=== PATIENT | female | born 1975 | race Caucasian/White ===

== ENCOUNTER 2017-11-06 10:02 | Inpatient (IN) | payer BC ==
--- NOTE | 2017-11-06 10:33 | ED ---
Psych HPI - General Chief Complaint: Psychiatric Symptoms Stated Complaint: EPS eval Time Seen by Provider: 11/06/17 10:12 Source: patient Mode of arrival: ambulatory - History of Present Illness Initial Comments: 42 years old female just moved from [place] she has a history of bipolar disorder PTSD anxiety and depression she was seeing Dr. Roberts. She stating that she has been thinking about term harming herself she been thinking about term taking the overdose with her prescription pills she has done that in the past year ago she took her pills and attempted suicide he denies any alcohol or street drugs onboard she did smoke some marijuana yesterday. Denies any headaches no neck stiffness no chest pain or shortness of breath no abdominal pain. - Related Data Home Medications Medication Instructions Recorded Confirmed Albuterol Inhaler [Ventolin Hfa 1 - 2 puff INHALATION RT-Q6H PRN 11/06/17 Inhaler] Albuterol Nebulized [Ventolin 2.5 mg INHALATION RT-QID PRN 11/06/17 11/06/17 Nebulized] EPINEPHrine [Epipen 2-Macario] 0.3 mg IM ONCE PRN 11/06/17 11/06/17 Famotidine [Pepcid] 40 mg PO BID 11/06/17 11/06/17 Fluticasone/Salmeterol [Advair 1 puff INHALATION RT-BID 11/06/17 11/06/17 250-50 Diskus] Folic Acid 1 mg PO DAILY 11/06/17 11/06/17 Gabapentin 600 mg PO TID 11/06/17 11/06/17 LORazepam [Ativan] 1 mg PO BID 11/06/17 11/06/17 Methotrexate Sodium [Methotrexate] 20 mg PO DEVI 11/06/17 11/06/17 Metoprolol Succinate (ER) [Toprol 50 mg PO DAILY 11/06/17 11/06/17 Xl] Montelukast [Singulair] 10 mg PO HS 11/06/17 11/06/17 Omeprazole [PriLOSEC] 20 mg PO AC-BID 11/06/17 11/06/17 Prazosin [Minipress] 1 mg PO HS 11/06/17 11/06/17 QUEtiapine [SEROquel] 100 mg PO HS 11/06/17 11/06/17 busPIRone HCL 15 mg PO TID 11/06/17 11/06/17 Allergies Allergy/AdvReac Type Severity Reaction Status Date / Time cephalexin [From Keflex] Allergy Rash/Hives Verified 11/07/17 19:18 codeine Allergy Rash/Hives Verified 11/07/17 19:18 kiwi Allergy Dyspnea Verified 11/07/17 19:18 latex Allergy Rash/Hives Verified 11/07/17 19:18 vancomycin [From Vancocin] Allergy Rash/Hives Verified 11/07/17 19:18 morphine AdvReac BP Verified 11/07/17 19:18 DECREASES Review of Systems ROS Statement: Those systems with pertinent positive or pertinent negative responses have been documented in the HPI. ROS Other: All systems not noted in ROS Statement are negative. Past Medical History Past Medical History: Asthma Additional Past Medical History / Comment(s): psoriasis History of Any Multi-Drug Resistant Organisms: None Reported Past Surgical History: Cholecystectomy, Orthopedic Surgery, Tonsillectomy Additional Past Surgical History / Comment(s): lap band placement and removal Past Psychological History: Anxiety, Bipolar, Depression Smoking Status: Never smoker Past Alcohol Use History: None Reported Past Drug Use History: Marijuana General Exam - General Exam Comments Initial Comments: General: The patient is awake and alert, in no distress, and does not appear acutely ill. Skin: Skin is warm and dry and no rashes or lesions are noted. Eye: Pupils are equal, round and reactive to light, extra-ocular movements are intact; there is normal conjunctiva bilaterally. Ears, nose, mouth and throat: There are moist mucous membranes and no oral lesions. Neck: The neck is supple, there is no tenderness or JVD. Cardiovascular: There is a regular rate and rhythm. No murmur, rub or gallop is appreciated. Respiratory: To auscultation bilateral, no wheezing no rhonchi no distress respiratory skinner noticed Gastrointestinal: Soft, non-distended, non-tender abdomen without masses or organomegaly noted. There is no rebound or guarding present. Bowel sounds are unremarkable. Back: There is no tenderness to palpation in the midline. There is no obvious deformity. Musculoskeletal: Normal ROM, no tenderness, There is no pedal edema. There is no calf tenderness or swelling. No cords were appreciated. Neurological: CN II-XII intact, Cranial nerves III through XII are intact. There are no obvious motor or sensory deficits. Coordination appears grossly intact. Speech is normal. Psychiatric: Cooperative, appropriate mood him a no obvious depression noticed he has suicidal she said she wants to take her pills prescription pills to commit suicide she has a history of overdose she attempted that about a year ago Limitations: no limitations Course Vital Signs 11/06/17 11/06/17 11/06/17 10:05 15:37 19:11 Temperature 98.7 F Pulse Rate 63 64 60 Respiratory 16 18 18 Rate Blood Pressure 132/85 114/53 127/60 O2 Sat by Pulse 97 99 99 Oximetry 11/07/17 11/07/17 11/07/17 06:42 08:43 13:09 Temperature 97.4 F L Pulse Rate 70 61 60 Respiratory 18 16 18 Rate Blood Pressure 129/72 143/85 113/64 O2 Sat by Pulse 98 96 99 Oximetry Will proceed with consulting EPS for further evaluation at this point EPS requested me to do the Cert, EPS plan to transfer him to another psychiatric facility for inpatient treatment Medical Decision Making - Lab Data Result diagrams: 11/06/17 19:17 11/06/17 19:17 Lab Results 11/06/17 11/06/17 11/06/17 Range/Units 13:02 13:02 19:17 WBC 5.7 (3.8-10.6) k/uL RBC 4.33 (3.80-5.40) m/uL Hgb 12.9 (11.4-16.0) gm/dL Hct 38.4 (34.0-46.0) % MCV 88.7 (80.0-100.0) fL MCH 29.9 (25.0-35.0) pg MCHC 33.7 (31.0-37.0) g/dL RDW 13.4 (11.5-15.5) % Plt Count 165 (150-450) k/uL Neutrophils % 64 % Lymphocytes % 21 % Monocytes % 7 % Eosinophils % 4 % Basophils % 0 % Neutrophils # 3.7 (1.3-7.7) k/uL Lymphocytes # 1.2 (1.0-4.8) k/uL Monocytes # 0.4 (0-1.0) k/uL Eosinophils # 0.2 (0-0.7) k/uL Basophils # 0.0 (0-0.2) k/uL Sodium (137-145) mmol/L Potassium (3.5-5.1) mmol/L Chloride (98-107) mmol/L Carbon Dioxide (22-30) mmol/L Anion Gap mmol/L BUN (7-17) mg/dL Creatinine (0.52-1.04) mg/dL Est GFR (CKD-EPI)AfAm (>60 ml/min/1.73 sqM) Est GFR (CKD-EPI)NonAf (>60 ml/min/1.73 sqM) Glucose (74-99) mg/dL Estimated Ave Glu mg/dL Hemoglobin A1c (4.0-6.0) % Calcium (8.4-10.2) mg/dL Total Bilirubin (0.2-1.3) mg/dL AST (14-36) U/L ALT (9-52) U/L Alkaline Phosphatase (38-126) U/L Total Protein (6.3-8.2) g/dL Albumin (3.5-5.0) g/dL Triglycerides (<150) mg/dL Cholesterol (<200) mg/dL LDL Cholesterol, Calc (0-99) mg/dL HDL Cholesterol (40-60) mg/dL Urine Color Yellow Urine Appearance Cloudy H (Clear) Urine pH 6.0 (5.0-8.0) Ur Specific [place] 1.018 (1.001-1.035) Urine Protein Trace H (Negative) Urine Glucose (UA) Negative (Negative) Urine Ketones Negative (Negative) Urine Blood Negative (Negative) Urine Nitrite Negative (Negative) Urine Bilirubin Negative (Negative) Urine Urobilinogen <2.0 (<2.0) mg/dL Ur Leukocyte Esterase Large H (Negative) Urine RBC 1 (0-5) /hpf Urine WBC 3 (0-5) /hpf Ur Squamous Epith Cells 22 H (0-4) /hpf Urine Bacteria Rare H (None) /hpf Urine Mucus Occasional H (None) /hpf Urine Opiates Screen Not Detected (NotDetected) Ur Oxycodone Screen Not Detected (NotDetected) Urine Methadone Screen Not Detected (NotDetected) Ur Propoxyphene Screen Not Detected (NotDetected) Ur Barbiturates Screen Not Detected (NotDetected) U Tricyclic Antidepress Detected H (NotDetected) Ur Phencyclidine Scrn Not Detected (NotDetected) Ur Amphetamines Screen Not Detected (NotDetected) U Methamphetamines Scrn Not Detected (NotDetected) U Benzodiazepines Scrn Detected H (NotDetected) Urine Cocaine Screen Not Detected (NotDetected) U Marijuana (THC) Screen Detected H (NotDetected) 11/06/17 11/06/17 11/06/17 Range/Units 19:17 19:17 19:17 WBC (3.8-10.6) k/uL RBC (3.80-5.40) m/uL Hgb (11.4-16.0) gm/dL Hct (34.0-46.0) % MCV (80.0-100.0) fL MCH (25.0-35.0) pg MCHC (31.0-37.0) g/dL RDW (11.5-15.5) % Plt Count (150-450) k/uL Neutrophils % % Lymphocytes % % Monocytes % % Eosinophils % % Basophils % % Neutrophils # (1.3-7.7) k/uL Lymphocytes # (1.0-4.8) k/uL Monocytes # (0-1.0) k/uL Eosinophils # (0-0.7) k/uL Basophils # (0-0.2) k/uL Sodium 139 (137-145) mmol/L Potassium 4.4 (3.5-5.1) mmol/L Chloride 106 (98-107) mmol/L Carbon Dioxide 26 (22-30) mmol/L Anion Gap 7 mmol/L BUN 13 (7-17) mg/dL Creatinine 0.90 (0.52-1.04) mg/dL Est GFR (CKD-EPI)AfAm >90 (>60 ml/min/1.73 sqM) Est GFR (CKD-EPI)NonAf 79 (>60 ml/min/1.73 sqM) Glucose 100 H (74-99) mg/dL Estimated Ave Glu mg/dL 100 Hemoglobin A1c 5.1 (4.0-6.0) % Calcium 8.9 (8.4-10.2) mg/dL Total Bilirubin 0.4 (0.2-1.3) mg/dL AST 22 (14-36) U/L ALT 38 (9-52) U/L Alkaline Phosphatase 72 (38-126) U/L Total Protein 6.4 (6.3-8.2) g/dL Albumin 3.7 (3.5-5.0) g/dL Triglycerides 334 H (<150) mg/dL Cholesterol 187 (<200) mg/dL LDL Cholesterol, Calc 90 (0-99) mg/dL HDL Cholesterol 30 L (40-60) mg/dL Urine Color Urine Appearance (Clear) Urine pH (5.0-8.0) Ur Specific [place] (1.001-1.035) Urine Protein (Negative) Urine Glucose (UA) (Negative) Urine Ketones (Negative) Urine Blood (Negative) Urine Nitrite (Negative) Urine Bilirubin (Negative) Urine Urobilinogen (<2.0) mg/dL Ur Leukocyte Esterase (Negative) Urine RBC (0-5) /hpf Urine WBC (0-5) /hpf Ur Squamous Epith Cells (0-4) /hpf Urine Bacteria (None) /hpf Urine Mucus (None) /hpf Urine Opiates Screen (NotDetected) Ur Oxycodone Screen (NotDetected) Urine Methadone Screen (NotDetected) Ur Propoxyphene Screen (NotDetected) Ur Barbiturates Screen (NotDetected) U Tricyclic Antidepress (NotDetected) Ur Phencyclidine Scrn (NotDetected) Ur Amphetamines Screen (NotDetected) U Methamphetamines Scrn (NotDetected) U Benzodiazepines Scrn (NotDetected) Urine Cocaine Screen (NotDetected) U Marijuana (THC) Screen (NotDetected) Disposition Clinical Impression: Suicidal ideations, Planning to commit suicide Disposition: TRANSFER TO PSYCH HOSP/UNIT Condition: Good
[2017-11-06 13:34] LABS: Cocaine Screen,Urine Not Detected (NotDetected); Opiate Screen,Urine Not Detected (NotDetected); Phencyclidine Screen,Urine Not Detected (NotDetected); Urn Cannabinoid Scrn Detected (NotDetected)
[2017-11-06 13:35] LABS: Amphetamine Screen,Urine Not Detected (NotDetected); Barbiturate Screen,Urine Not Detected (NotDetected); Benzodiazepines Screen,Urine Detected (NotDetected); Methadone Screen, Urine Not Detected (NotDetected); Oxycodone Screen, Urine Not Detected (NotDetected); Tricyclic Antidepressant,Urine Detected (NotDetected)
[2017-11-06] MEDS ORDERED: LORazepam 1 MG TAB PO STA (14:52)
[2017-11-06 18:52] LABS: Appearance,Urine Cloudy (Clear); Bacteria,Urine Rare /hpf; Bilirubin,Urine Negative (Negative); Blood,Urine Negative (Negative); Color,Urine Yellow; Glucose,Urine (UA) Negative (Negative); Ketones,Urine Negative (Negative); Leukocyte Esterase,Urine Large (Negative); Mucus,Urine Occasional /hpf; Nitrite,Urine Negative (Negative); Protein,Urine Trace (Negative); RBC,Urine 1 /hpf (0-5); Specific Gravity,Urine 1.018 (1.001-1.035); Squamous Epithelial Cell,Urine 22 /hpf (0-4); Urobilinogen,Urine <2.0 mg/dL (<2.0); WBC,Urine 3 /hpf (0-5)
[2017-11-06 19:27] LABS: Basophils % (A) 0 %; Eosinophils # (A) 0.2 k/uL (0-0.7); Eosinophils % (A) 4 %; HCT 38.4 % (34.0-46.0); HGB 12.9 gm/dL (11.4-16.0); Lymphocytes # (A) 1.2 k/uL (1.0-4.8); Lymphocytes % (A) 21 %; MCH 29.9 pg (25.0-35.0); MCHC 33.7 g/dL (31.0-37.0); MCV 88.7 fL (80.0-100.0); Mean Platelet Volume 7.4; Monocytes # (A) 0.4 k/uL (0-1.0); Monocytes % (A) 7 %; Neutrophils # (A) 3.7 k/uL (1.3-7.7); Neutrophils % (A) 64 %; Platelet Count 165 k/uL (150-450); RBC 4.33 m/uL (3.80-5.40); RDW 13.4 % (11.5-15.5); WBC 5.7 k/uL (3.8-10.6)
[2017-11-06 19:36] LABS: ALT 38 U/L (9-52); AST 22 U/L (14-36); Albumin 3.7 g/dL (3.5-5.0); Alkaline Phosphatase 72 U/L (38-126); Anion Gap 7 mmol/L; Blood Urea Nitrogen 13 mg/dL (7-17); Calcium 8.9 mg/dL (8.4-10.2); Carbon Dioxide 26 mmol/L (22-30); Chloride 106 mmol/L (98-107); Glucose 100 mg/dL (74-99); Potassium 4.4 mmol/L (3.5-5.1); Sodium 139 mmol/L (137-145); Total Bilirubin 0.4 mg/dL (0.2-1.3); Total Protein 6.4 g/dL (6.3-8.2)
[2017-11-06] MEDS ORDERED: ALBUTEROL NEBULIZED 2.5 MG/3 ML INHALATION PRN ×2 (22:26)
[2017-11-07] MEDS ORDERED: ONDANSETRON ODT 4 MG TAB PO STA (05:49)
[2017-11-07] MEDS ORDERED: PANTOPRAZOLE 40 MG TABLET PO SCH (07:30)
[2017-11-07] MEDS ORDERED: NON-FORMULARY DRUG (Fluticasone/Salmeterol [Advair 250-50 Diskus] 1 PUFF) INHALATION SCH (08:00)
[2017-11-07] MEDS: busPIRone HCl 10 MG TAB PO SCH ×2 (08:41→16:26)
[2017-11-07] MEDS: GABAPENTIN 300 MG CAP PO SCH ×3 (08:42→21:41)
[2017-11-07] MEDS ORDERED: ONDANSETRON ODT 8 MG TAB.RAPDIS PO STA (08:46)
[2017-11-07] MEDS: LORazepam 1 MG TAB PO SCH ×2 (08:49→16:35)
[2017-11-07] MEDS ORDERED: METOPROLOL SUCCINATE (ER) 50 MG TAB.ER.24H PO SCH (09:00)
[2017-11-07] MEDS ORDERED: FAMOTIDINE 20 MG TAB PO SCH (09:00)
[2017-11-07] MEDS ORDERED: LORazepam 1 MG TAB PO STA (16:33)
[2017-11-07] MEDS ORDERED: LORazepam 1 MG TAB PO PRN (18:29)
[2017-11-07] MEDS ORDERED: ACETAMINOPHEN TAB 325 MG TAB PO PRN (18:29)
[2017-11-07] MEDS ORDERED: MAGNESIUM HYDROXIDE 2,400 MG/10 ML CUP PO PRN (18:29)
[2017-11-07] MEDS ORDERED: MAG HYDROX/AL HYDROX/SIMETH 30 ML CUP PO PRN (18:29)
[2017-11-07] MEDS ORDERED: ALBUTEROL INHALER 60 PUFF/8 GM INHALER INHALATION PRN (18:45)
[2017-11-07 18:54] VITALS: BMI 42.4
[2017-11-07] MEDS: SYMBICORT 80-4.5 MCG INHALER INHALATION SCH (20:35)
[2017-11-07] MEDS ORDERED: MONTELUKAST 10 MG TAB PO SCH (21:00)
[2017-11-07] MEDS ORDERED: PRAZOSIN 1 MG CAP PO SCH (21:00)
[2017-11-07] MEDS ORDERED: QUEtiapine 100 MG TAB PO SCH ×2 (21:00)
[2017-11-07] MEDS: PRAZOSIN 1 MG CAP PO SCH (21:40)
[2017-11-07] MEDS: MONTELUKAST 10 MG TAB PO SCH (21:40)
[2017-11-07] MEDS: busPIRone HCl 5 MG TAB PO SCH (21:40)
[2017-11-07] MEDS: FAMOTIDINE 20 MG TAB PO SCH (21:41)
[2017-11-08 01:52] LABS: Cholesterol 187 mg/dL (<200); HDL Cholesterol 30 mg/dL (40-60); LDL Cholesterol,Calculated 90 mg/dL (0-99); Triglycerides 334 mg/dL (<150)
[2017-11-08] MEDS: busPIRone HCl 5 MG TAB PO SCH ×3 (08:31→20:56)
[2017-11-08] MEDS: GABAPENTIN 300 MG CAP PO SCH ×3 (08:31→20:56)
[2017-11-08] MEDS: METOPROLOL SUCCINATE (ER) 50 MG TAB.ER.24H PO SCH (08:32)
[2017-11-08] MEDS: FAMOTIDINE 20 MG TAB PO SCH ×2 (08:32→20:56)
[2017-11-08] MEDS: PANTOPRAZOLE 40 MG TABLET PO SCH ×2 (08:32→17:29)
[2017-11-08] MEDS: SYMBICORT 80-4.5 MCG INHALER INHALATION SCH ×2 (08:35→20:43)
[2017-11-08] MEDS: FOLIC ACID 1 MG TAB PO SCH (11:09)
[2017-11-08] MEDS: lamoTRIgine 25 MG TAB PO SCH (11:09)
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
[2017-11-08 14:13] LABS: Hemoglobin A1C 5.1 % (4.0-6.0)
--- NOTE | 2017-11-08 15:12 | P.CONS ---
History of Present Illness - Reason for Consult Asthma, psoriasis, SVT - History of Present Illness 42-year-old female is be a admitted for breast severe depression. Patient denied any short of breath or fever chills chest pain nausea vomiting patient is requesting something for her restless leg syndrome she does take Requip but unsure of the dose and she says she probably takes about a 1 milligram of Requip I'm starting her on 0.5 mg daily increase the dose or if her symptoms are not controlled. Review of Systems REVIEW OF SYSTEMS: CONSTITUTIONAL: No fever, no malaise, no fatigue. HEENT: No recent visual problems or hearing problems. Denied any sore throat. CARDIOVASCULAR: No chest pain, orthopnea, PND, no palpitations, no syncope. PULMONARY: No shortness of breath, no cough, no hemoptysis. GASTROINTESTINAL: No diarrhea, no nausea, no vomiting, no abdominal pain. Normoactive bowel sounds. NEUROLOGICAL: No headaches, no weakness, no numbness. HEMATOLOGICAL: Denies any bleeding or petechiae. GENITOURINARY: Denies any burning micturition, frequency, or urgency. MUSCULOSKELETAL/RHEUMATOLOGICAL: Denies any joint pain, swelling, or any muscle pain. ENDOCRINE: Denies any polyuria or polydipsia. The rest of the 14-point review of systems is negative. Past Medical History Past Medical History: Asthma Additional Past Medical History / Comment(s): psoriasis History of Any Multi-Drug Resistant Organisms: None Reported Past Surgical History: Cholecystectomy, Orthopedic Surgery, Tonsillectomy Additional Past Surgical History / Comment(s): lap band placement and removal Past Anesthesia/Blood Transfusion Reactions: No Reported Reaction Past Psychological History: Anxiety, Bipolar, Depression Smoking Status: Never smoker Past Alcohol Use History: None Reported Past Drug Use History: Marijuana Medications and Allergies Home Medications Medication Instructions Recorded Confirmed Type Albuterol Inhaler [Ventolin Hfa 1 - 2 puff INHALATION RT-Q6H PRN 11/06/17 History Inhaler] Albuterol Nebulized [Ventolin 2.5 mg INHALATION RT-QID PRN 11/06/17 11/06/17 History Nebulized] EPINEPHrine [Epipen 2-Macario] 0.3 mg IM ONCE PRN 11/06/17 11/06/17 History Famotidine [Pepcid] 40 mg PO BID 11/06/17 11/06/17 History Fluticasone/Salmeterol [Advair 1 puff INHALATION RT-BID 11/06/17 11/06/17 History 250-50 Diskus] Folic Acid 1 mg PO DAILY 11/06/17 11/06/17 History Gabapentin 600 mg PO TID 11/06/17 11/06/17 History LORazepam [Ativan] 1 mg PO BID 11/06/17 11/06/17 History Methotrexate Sodium [Methotrexate] 20 mg PO DEVI 11/06/17 11/06/17 History Metoprolol Succinate (ER) [Toprol 50 mg PO DAILY 11/06/17 11/06/17 History Xl] Montelukast [Singulair] 10 mg PO HS 11/06/17 11/06/17 History Omeprazole [PriLOSEC] 20 mg PO AC-BID 11/06/17 11/06/17 History Prazosin [Minipress] 1 mg PO HS 11/06/17 11/06/17 History QUEtiapine [SEROquel] 100 mg PO HS 11/06/17 11/06/17 History busPIRone HCL 15 mg PO TID 11/06/17 11/06/17 History Allergies Allergy/AdvReac Type Severity Reaction Status Date / Time cephalexin [From Keflex] Allergy Rash/Hives Verified 11/07/17 19:18 codeine Allergy Rash/Hives Verified 11/07/17 19:18 kiwi Allergy Dyspnea Verified 11/07/17 19:18 latex Allergy Rash/Hives Verified 11/07/17 19:18 vancomycin [From Vancocin] Allergy Rash/Hives Verified 11/07/17 19:18 morphine AdvReac BP Verified 11/07/17 19:18 DECREASES Physical Exam Vitals: Vital Signs Temp Pulse Resp BP 11/08/17 08:35 70 18 128/79 11/07/17 21:56 71 136/93 11/07/17 18:38 97.3 F L 64 16 136/88 11/07/17 18:15 97.3 F L 64 16 136/88 PHYSICAL EXAMINATION: GENERAL: The patient is alert and oriented x3, not in any acute distress. Well developed, well nourished. HEENT: Pupils are round and equally reacting to light. EOMI. No scleral icterus. No conjunctival pallor. Normocephalic, atraumatic. No pharyngeal erythema. No thyromegaly. CARDIOVASCULAR: S1 and S2 present. No murmurs, rubs, or gallops. PULMONARY: Chest is clear to auscultation, no wheezing or crackles. ABDOMEN: Soft, nontender, nondistended, normoactive bowel sounds. No palpable organomegaly. MUSCULOSKELETAL: No joint swelling or deformity. EXTREMITIES: No cyanosis, clubbing, or pedal edema. NEUROLOGICAL: Gross neurological examination did not reveal any focal deficits. SKIN: No rashes. Results CBC & Chem 7: 11/06/17 19:17 11/06/17 19:17 Labs: Abnormal Lab Results - Last 24 Hours (Table) 11/06/17 Range/Units 19:17 Triglycerides 334 H (<150) mg/dL HDL Cholesterol 30 L (40-60) mg/dL Assessment and Plan Plan: -Asthma without any acute exacerbation no further intervention can continue albuterol and as-needed basis -Marijuana use: Counseling was provided -Psoriatic arthritis: Patient is on methotrexate which can be continued -Obesity: Counseling was provided -Asymptomatic bacteriuria will not require any antibiotics -History of SVT rate controlled on metoprolol which will be continued -Depression management as per primary service No further recommendations from medicine perspective thank you for letting me for respite in this patient's care will sign off at this point of time call us back if needed
[2017-11-08] MEDS: LORazepam 1 MG TAB PO PRN (15:25)
[2017-11-08] MEDS: MONTELUKAST 10 MG TAB PO SCH (20:56)
[2017-11-08] MEDS: PRAZOSIN 1 MG CAP PO SCH (21:20)
[2017-11-08] MEDS: traZODone HCL 50 MG TAB PO PRN (22:38)
[2017-11-09] MEDS: busPIRone HCl 5 MG TAB PO SCH ×3 (08:49→20:49)
[2017-11-09] MEDS: PANTOPRAZOLE 40 MG TABLET PO SCH ×2 (08:49→16:19)
[2017-11-09] MEDS: lamoTRIgine 25 MG TAB PO SCH (08:50)
[2017-11-09] MEDS: METOPROLOL SUCCINATE (ER) 50 MG TAB.ER.24H PO SCH (08:50)
[2017-11-09] MEDS: FAMOTIDINE 20 MG TAB PO SCH ×2 (08:50→20:48)
[2017-11-09] MEDS: GABAPENTIN 300 MG CAP PO SCH ×3 (08:50→20:49)
[2017-11-09] MEDS: LORazepam 1 MG TAB PO PRN ×2 (08:52→14:52)
[2017-11-09] MEDS: ONDANSETRON 4 MG TAB PO PRN (08:53)
--- NOTE | 2017-11-09 11:12 | P.PN ---
Progress Note - Text Interval history: The patient is found in group she follows me to an interview room. She reports her mood is okay she finds herself distressed by peers on the mental health unit. She states that she got some sleep last night appetite is poor. Energy is low. She continues to have some hopeless thoughts but feels safe in the hospital in terms of suicidal ideation. She describes having a difficult conversation with her yesterday and states "I got yelled at ". We reviewed her medications in detail. She is describing no skin rash from the Lamictal so far. We reviewed her vital signs there has been some fluctuation of her blood pressure. She is on metoprolol and Minipress and we discussed the impact of those 2 medications. Mental status exam: The patient is an overweight female she presents with adequate hygiene grooming. Eye contact is appropriate speech is fluent spontaneous nonpressured. She reports a depressed mood with anxiety. She is reporting no acute suicidal ideation intent or plan and she feels safe in the hospital. She is endorsing no auditory or visual hallucinations. She does not appear hypomanic or manic. She reports that she does struggle with relationships and is in need of coping skill development. She finds that she will quickly make assumptions about situations that are often pessimistic. Plan: The patient will be continued on her current medications. We will monitor her vitals. It appears she does have a significant contribution of personality disorder traits specifically borderline features. We discussed that as a possible diagnosis in detail. She seems to endorse several of those features. We discussed the importance of establishing a therapeutic alliance with her outpatient therapist and using DBT principles. We discussed titrating the Lamictal during the course of the week and she is agreeable. We will monitor her for safety.
[2017-11-09] MEDS: SYMBICORT 80-4.5 MCG INHALER INHALATION SCH ×2 (11:16→21:30)
[2017-11-09] MEDS: FOLIC ACID 1 MG TAB PO SCH (12:14)
[2017-11-09] MEDS: MONTELUKAST 10 MG TAB PO SCH (20:49)
[2017-11-09] MEDS: PRAZOSIN 1 MG CAP PO SCH (20:49)
[2017-11-09] MEDS: traZODone HCL 50 MG TAB PO PRN (22:22)
[2017-11-10] MEDS: SYMBICORT 80-4.5 MCG INHALER INHALATION SCH ×2 (09:15→21:20)
[2017-11-10] MEDS: METOPROLOL SUCCINATE (ER) 50 MG TAB.ER.24H PO SCH (09:16)
[2017-11-10] MEDS: FAMOTIDINE 20 MG TAB PO SCH ×2 (09:16→20:03)
[2017-11-10] MEDS: lamoTRIgine 25 MG TAB PO SCH ×2 (09:16→20:23)
[2017-11-10] MEDS: GABAPENTIN 300 MG CAP PO SCH ×3 (09:16→20:06)
[2017-11-10] MEDS: busPIRone HCl 5 MG TAB PO SCH ×3 (09:16→20:04)
[2017-11-10] MEDS: PANTOPRAZOLE 40 MG TABLET PO SCH ×2 (09:16→16:32)
[2017-11-10] MEDS: LORazepam 1 MG TAB PO PRN (09:18)
[2017-11-10] MEDS: FOLIC ACID 1 MG TAB PO SCH (12:33)
--- NOTE | 2017-11-10 13:27 | P.PN ---
Progress Note - Text Interval history: The patient is found in the dining room she follows me to an interview room. She states her anxiety has been heightened by exposure to an individual on the unit who is struggling with symptoms of ileana and psychosis. She states ordinarily she would do crafts and artwork to distract herself from anxiety but doesn't find those activities as available here. We discussed coping skills she can utilize while on the mental health unit. We reviewed her psychotropic medication her questions were answered. We plan to titrate the Lamictal further. Mental status exam: The patient is an obese female appearing her stated age. She has adequate hygiene grooming. Eye contact is appropriate. She endorses feelings of anxiety today. She feels suicidal thoughts are improving and she feels less hopeless. She is reporting no homicidal ideation. She endorses no auditory or visual hallucinations or any specific delusions. There is no observed evidence of psychosis she does not appear hypomanic or manic. Insight and judgment are slowly improving. Affect is more appropriately expressive. She demonstrates no abnormal involuntary movements she demonstrates no verbal or physical aggressiveness. Plan: The patient will continue on her current medications however I will titrate the Lamictal 25 mg twice daily. We will continue to monitor her for safety. She is encouraged to continue participating in groups. If she demonstrates sufficient clinical improvement/stability over the weekend we will consider a discharge Monday.
[2017-11-10] MEDS: PRAZOSIN 1 MG CAP PO SCH (20:05)
[2017-11-10] MEDS: MONTELUKAST 10 MG TAB PO SCH (20:05)
[2017-11-10] MEDS: traZODone HCL 50 MG TAB PO PRN (23:04)
[2017-11-11] MEDS: METOPROLOL SUCCINATE (ER) 50 MG TAB.ER.24H PO SCH (08:23)
[2017-11-11] MEDS: GABAPENTIN 300 MG CAP PO SCH ×3 (08:23→20:28)
[2017-11-11] MEDS: PANTOPRAZOLE 40 MG TABLET PO SCH ×2 (08:23→16:21)
[2017-11-11] MEDS: FAMOTIDINE 20 MG TAB PO SCH ×2 (08:23→20:27)
[2017-11-11] MEDS: lamoTRIgine 25 MG TAB PO SCH ×2 (08:24→20:27)
[2017-11-11] MEDS: busPIRone HCl 5 MG TAB PO SCH ×3 (08:24→20:28)
[2017-11-11] MEDS: FOLIC ACID 1 MG TAB PO SCH (08:24)
[2017-11-11] MEDS: ONDANSETRON 4 MG TAB PO PRN (08:26)
[2017-11-11] MEDS: SYMBICORT 80-4.5 MCG INHALER INHALATION SCH ×2 (09:01→21:34)
--- NOTE | 2017-11-11 12:33 | PN ---
PROGRESS NOTE SUBJECTIVE: Patient seen, interviewed, found in somewhat better mood. The patient reports that she has started feeling better. She stated her anxiety is still there. She is still a little hyper impulsive. She stated she is worried about everything. She stated she is started on Lamictal and she took it and tolerated it well. She is somewhat hyperverbal, having flight of ideas, but at the same time redirectable. MENTAL STATUS EXAMINATION: Patient is alert and orient x4. Has fair eye contact. Speech is hyperverbal, somewhat pressured. Mood is anxious with congruent affect. Denies any suicidal ideation. I do not see her responding to internal flap. Intellect is average. Insight, judgment, improving slowing individually. PLAN OF TREATMENT: We will continue to adjust medications accordingly. We will continue to titrate the Lamictal up accordingly. So far she has been tolerating well, reporting no side effects. She has some trouble with sleep. We will give her trazodone to help her sleep and encourage her to attend groups and meetings. Support therapy provided. ABIGAIL / SONNY: [id number] /
[2017-11-11] MEDS: LORazepam 1 MG TAB PO PRN (15:09)
[2017-11-11] MEDS: MONTELUKAST 10 MG TAB PO SCH (20:27)
[2017-11-11] MEDS: PRAZOSIN 1 MG CAP PO SCH (20:28)
[2017-11-11] MEDS: traZODone HCL 50 MG TAB PO PRN (22:39)
[2017-11-12 07:05] VITALS: RESP 16
[2017-11-12] MEDS: GABAPENTIN 300 MG CAP PO SCH ×3 (08:18→20:50)
[2017-11-12] MEDS: PANTOPRAZOLE 40 MG TABLET PO SCH ×2 (08:18→17:06)
[2017-11-12] MEDS: FAMOTIDINE 20 MG TAB PO SCH ×2 (08:18→20:49)
[2017-11-12] MEDS: METOPROLOL SUCCINATE (ER) 50 MG TAB.ER.24H PO SCH (08:18)
[2017-11-12] MEDS: lamoTRIgine 25 MG TAB PO SCH ×2 (08:19→20:51)
[2017-11-12] MEDS: busPIRone HCl 5 MG TAB PO SCH ×3 (08:19→20:50)
[2017-11-12] MEDS: ONDANSETRON 4 MG TAB PO PRN (08:20)
[2017-11-12] MEDS: SYMBICORT 80-4.5 MCG INHALER INHALATION SCH ×2 (09:00→21:05)
[2017-11-12] MEDS: FOLIC ACID 1 MG TAB PO SCH (12:14)
--- NOTE | 2017-11-12 14:07 | PN ---
PROGRESS NOTE DATE OF SERVICE: Today is November 12, 2017. The patient is seen and interviewed. Found watching TV. She reports she is doing better. She reports that with the medication she was having some headache and she would like to get some Tylenol. Her mood has started improving. She still reports some anxiety and some impulsive behavior. She has no issues with the Lamictal so far. She is still somewhat hyperverbal but has no pressured speech. She did sleep better last night. MENTAL STATUS EXAMINATION: Patient is alert and oriented x4. Has fair eye contact. Speech is hyperverbal, but no pressure. Mood is still anxious, dysphoric, affect from admission. I did not see her responding to internal stimuli. Insight, judgment, improving gradually. PLAN: Will continue to adjust medications accordingly. We will give her some Tylenol to help with the headache. Encouraged to attend groups and meetings. Supportive therapy provided. MMODL / IJN: [id number] /
[2017-11-12] MEDS: PRAZOSIN 1 MG CAP PO SCH (20:51)
[2017-11-12] MEDS: MONTELUKAST 10 MG TAB PO SCH (20:56)
[2017-11-12] MEDS: traZODone HCL 50 MG TAB PO PRN (21:59)
[2017-11-13 06:36] VITALS: BP 112/64; PULSE 61; TEMP 97.7
[2017-11-13] MEDS: PANTOPRAZOLE 40 MG TABLET PO SCH (08:15)
[2017-11-13] MEDS: FAMOTIDINE 20 MG TAB PO SCH (08:15)
[2017-11-13] MEDS: GABAPENTIN 300 MG CAP PO SCH ×2 (08:15→15:43)
[2017-11-13] MEDS: lamoTRIgine 25 MG TAB PO SCH (08:15)
[2017-11-13] MEDS: METOPROLOL SUCCINATE (ER) 50 MG TAB.ER.24H PO SCH (08:15)
[2017-11-13] MEDS: busPIRone HCl 5 MG TAB PO SCH ×3 (08:16→15:43)
[2017-11-13] MEDS: SYMBICORT 80-4.5 MCG INHALER INHALATION SCH (09:24)
--- NOTE | 2017-11-13 09:36 | P.DS ---
Providers Date of admission: 11/07/17 17:48 Expected date of discharge: 11/13/17 Attending physician: Josesito Dubon Consults: 11/07/17 18:29 Consult Physician Routine Consulting Provider: Leni Cadet Consult Reason/Comments: H&P for mental health admission Do you want consulting provider notified?: Yes Primary care physician: Zari Mayorga - Discharge Diagnosis(es) (1) Depression Current Visit: Yes Status: Acute Priority: High (2) Chronic post-traumatic stress disorder (PTSD) Current Visit: Yes Status: Acute Priority: Medium (3) Anxiety disorder, unspecified Current Visit: Yes Status: Acute Priority: Medium Hospital Course: Brief summary of admission note: This patient is a 42-year-old female who was admitted to the mental health unit with acute suicidal ideation. She presented reporting sadness poor sleep and decreased appetite. She described having low interest and less energy. She was frequently tearful and had hopeless thinking. She described having frequent symptoms of anxiety. During the course of the evaluation she endorsed episodes where she will go 4-5 days with less sleep and increased energy and racing thoughts. As the hospitalization progressed however she described these differently as changing from minute to minute or hour to hour. She described a long history of impaired self-esteem relationship instability and all or none thinking. For full details please refer to my psychiatric evaluation dated 11/08/2017. Summary of hospital course: The patient's was admitted to the mental health unit voluntarily. We reviewed her presenting symptoms and treatment options. We decided to continue her BuSpar, discontinue Seroquel, initiate trazodone for sleep, and initiate Lamictal as a mood stabilizer. We were able to titrate the Lamictal and she has been able to tolerate the medication. She was seen by internal medicine for routine history and physical exam. Requip was added for restless leg symptoms. She did have visitation with her over the weekend and she felt that went well. She is willing to continue working with her outpatient therapist. We discussed the importance of abstaining from any use of alcohol or marijuana. She does not feel that she has an issue with marijuana use and does not need inpatient chemical dependency treatment. Mental status exam: The patient is alert she is dressed in her own clothing. Hygiene and grooming are adequate. She reports her mood is much improved. She does not feel hopeless she endorses no suicidal or homicidal ideation intent or plan. She reports no auditory or visual hallucinations or any specific delusions. She demonstrates no evidence of psychosis. She demonstrates no tangential thinking loose associations or flight of ideas. She does not appear hypomanic or manic. Insight and judgment improved. Affect is appropriately expressive and appeared euthymic. She is oriented to person place and date. She demonstrates no verbal or physical aggressiveness and there is no evidence of abnormal involuntary movements. Impressions 1. Depression unspecified, rule out major depressive disorder, rule out bipolar 2 depression, anxiety unspecified, PTSD chronic, rule out cannabis use disorder 2. Borderline personality disorder traits 3. Psoriasis, controlled asthma, history of ankle injury with subsequent surgeries 4. Marital strain, financial strain Plan: The patient will be discharged from mental health unit today to return home. She will continue following up with outpatient mental health services and social work will confirm those appointments. She will continue on BuSpar 15 mg 3 times daily, Lamictal 25 mg twice daily. The Lamictal will require further titration. She will continue on Requip 0.5 mg at bedtime, trazodone 50 mg at bedtime as needed. She continues to find Minipress 1 mg at bedtime helpful and will continue on that as well. At this time is no imminent safety risk she is appropriate for transition to outpatient care. She is instructed to return to the hospital with any acute safety concerns. Patient Condition at Discharge: Stable Plan - Discharge Summary Discharge Rx Participant: No New Discharge Prescriptions: New lamoTRIgine [LaMICtal] 25 mg PO BID #60 tab rOPINIRole HCL [Requip] 0.5 mg PO HS #30 tablet traZODone HCL [Desyrel] 50 mg PO HS PRN #30 tab PRN Reason: Insomnia Continue Methotrexate Sodium [Methotrexate] 20 mg PO DEVI Gabapentin 600 mg PO TID Omeprazole [PriLOSEC] 20 mg PO AC-BID Metoprolol Succinate (ER) [Toprol XL] 50 mg PO DAILY Folic Acid 1 mg PO DAILY Fluticasone/Salmeterol [Advair 250-50 Diskus] 1 puff INHALATION RT-BID Famotidine [Pepcid] 40 mg PO BID EPINEPHrine [Epipen 2-Macario] 0.3 mg IM ONCE PRN PRN Reason: Anaphylaxis Montelukast [Singulair] 10 mg PO HS Albuterol Nebulized [Ventolin Nebulized] 2.5 mg INHALATION RT-QID PRN PRN Reason: Shortness Of Breath Albuterol Inhaler [Ventolin Hfa Inhaler] 1 - 2 puff INHALATION RT-Q6H PRN PRN Reason: Shortness Of Breath busPIRone HCL 15 mg PO TID #45 tablet Prazosin [Minipress] 1 mg PO HS #30 cap Discontinued LORazepam [Ativan] 1 mg PO BID QUEtiapine [SEROquel] 100 mg PO HS Discharge Medication List Albuterol Inhaler [Ventolin Hfa Inhaler] 1 - 2 puff INHALATION RT-Q6H PRN [History] Albuterol Nebulized [Ventolin Nebulized] 2.5 mg INHALATION RT-QID PRN 11/06/17 [ History] EPINEPHrine [Epipen 2-Macario] 0.3 mg IM ONCE PRN 11/06/17 [History] Famotidine [Pepcid] 40 mg PO BID 11/06/17 [History] Fluticasone/Salmeterol [Advair 250-50 Diskus] 1 puff INHALATION RT-BID 11/06/17 [History] Folic Acid 1 mg PO DAILY 11/06/17 [History] Gabapentin 600 mg PO TID 11/06/17 [History] Methotrexate Sodium [Methotrexate] 20 mg PO DEVI 11/06/17 [History] Metoprolol Succinate (ER) [Toprol XL] 50 mg PO DAILY 11/06/17 [History] Montelukast [Singulair] 10 mg PO HS 11/06/17 [History] Omeprazole [PriLOSEC] 20 mg PO AC-BID 11/06/17 [History] Prazosin [Minipress] 1 mg PO HS #30 cap 11/13/17 [Rx] busPIRone HCL 15 mg PO TID #45 tablet 11/13/17 [Rx] lamoTRIgine [LaMICtal] 25 mg PO BID #60 tab 11/13/17 [Rx] rOPINIRole HCL [Requip] 0.5 mg PO HS #30 tablet 11/13/17 [Rx] traZODone HCL [Desyrel] 50 mg PO HS PRN #30 tab 11/13/17 [Rx] Follow up Appointment(s)/Referral(s): Zari Mayorga MD [Primary Care Provider] - 1-2 days
[2017-11-13] MEDS: FOLIC ACID 1 MG TAB PO SCH (12:54)
== END 2017-11-13 16:43 | disposition home or self-care (01) | DRG 881 ==
LOC: EC 10:02 → 3MHU 11-07 17:48
PROVIDERS: ADMIT Psychiatry & Neurology Psychiatry; ATTEND Psychiatry & Neurology Psychiatry
DX: F32.9 Major depressive disorder, single episode, unspecified (principal); I47.1 Supraventricular tachycardia; R45.851 Suicidal ideations; Z68.41 Body mass index [BMI] 40.0-44.9, adult; F41.0 Panic disorder [episodic paroxysmal anxiety]; F43.12 Post-traumatic stress disorder, chronic; F60.3 Borderline personality disorder; G25.81 Restless legs syndrome; J45.909 Unspecified asthma, uncomplicated; L40.9 Psoriasis, unspecified; Z79.899 Other long term (current) drug therapy; Z91.5 Personal history of self-harm; F12.10 Cannabis abuse, uncomplicated; E66.9 Obesity, unspecified; Z71.3 Dietary counseling and surveillance; Z71.51 Drug abuse counseling and surveillance of drug abuser; M25.579 Pain in unspecified ankle and joints of unspecified foot; Z59.9 Problem related to housing and economic circumstances, unspecified; Z63.0 Problems in relationship with spouse or partner; Z81.1 Family history of alcohol abuse and dependence; Z81.8 Family history of other mental and behavioral disorders; Z88.1 Allergy status to other antibiotic agents; Z88.5 Allergy status to narcotic agent
CPT/HCPCS: 36415; 80053; 80061; 80306; 81001; 82075; 83036; 85025; 94640; 99285

== ENCOUNTER → 2017-11-24 | Outpatient (CLI) | payer BC ==
--- NOTE | 2017-11-24 14:06 | CT ---
EXAMINATION TYPE: CT ankle LT wo con DATE OF EXAM: 11/24/2017 COMPARISON: None HISTORY: Pain CT DLP: 203 mGycm Automated exposure control for dose reduction was used. CONTRAST: CT left ankle is performed without contrast. FINDINGS: Lateral malleolus is intact. Well-corticated lucency from two old fixating screws are seen anteriorly . There are 2 fixating screws through medial malleolus through healed fracture. There is large anterior fusion plate with multiple fixating screws through the anterior distal tibia with extension into the superior and anterior talus. There is arthrodesis or ossific fusion of the an terior to middle two thirds of the tibial talar joint seen best on sagittal images. Some mild posteri or spurring is present sagittal image 19. There is tiny superior and moderate size inferior calcaneal spur. Remainder of the hindfoot and midfo ot articulations are maintained. Normal sinus tarsi fat is present. Visualized Achilles tendon is sli ghtly thickened roughly 5 to 6 cm from insertion. Visualized plantar fascia is intact. Accessory ossi aan laura near cuboid bone sagittal image 14 is noted. Mild diffuse subcutaneous edema laterally is present . IMPRESSION: SURGICAL CHANGE THROUGH HEALED FRACTURES WITH DEVELOPING ARTHRODESIS TIBIOTALAR JOINT NOTED.
== END | disposition home or self-care (01) ==
LOC: EDUNIT# 11-09 07:20 → RADCTMAIN 12:51
PROVIDERS: ATTEND Orthopaedic Surgery
DX: M25.572 Pain in left ankle and joints of left foot (principal); Z98.1 Arthrodesis status

== ENCOUNTER → 2018-05-11 | Outpatient (CLI) | payer OTHER ==
[2018-05-14 12:11] LABS: Avocado Class CLASS 0; Banana IgE Class CLASS 0; Beef IgE <0.35 kU/L (<0.35); Beef IgE Class CLASS 0; Chicken IgE Class CLASS 0; Cow's Milk IgE Class CLASS 0; Egg White IgE <0.35 kU/L (<0.35); Egg Yolk IgE Class CLASS 0; Gluten IgE Class CLASS 0; Hazelnut IgE <0.35 kU/L (<0.35); Hazelnut IgE Class CLASS 0; Kiwi IgE <0.35 kU/L (<0.35); Latex IgE Class CLASS 0; Peanut IgE <0.35 kU/L (<0.35); Pork IgE Class CLASS 0; Potato IgE <0.35 kU/L (<0.35); Potato IgE Class CLASS 0; Soybean IgE <0.35 kU/L (<0.35); Yeast Bakers/Brew IgE <0.35 kU/L (<0.35)
== END | disposition home or self-care (01) ==
LOC: LABWHC1 16:56
PROVIDERS: ATTEND Otolaryngology
DX: L50.0 Allergic urticaria (principal)
CPT/HCPCS: 36415; 86003

== ENCOUNTER → 2018-10-02 | Outpatient (CLI) | payer OTHER ==
--- NOTE | 2018-10-02 21:02 | CONS ---
CONSULTATION REASON FOR CONSULTATION: This is a consultation note for sleep apnea. 42-year-old, obese female patient coming in for sleep apnea evaluation. The patient is obese and she has loud snoring and witnessed apneas, waking up choking and gasping for air in addition to excessive daytime sleepiness and fatigue. She wakes up tired and sleepy during the day. She goes to bed around 1:00 am, gets up at 8 a.m. in the morning. She is very much worried about her sleep quality. She is having no problems with memory and concentration. She is also irritable and she has history of depression. In addition, she reports dry mouth when she wakes up in the morning and she has ongoing restlessness in lower extremities. She has episodic heartburn, none at night time. She prefers to sleep on her side. She does not fall asleep while driving her car. No sleep paralysis, hallucinations, cataplexy. [place] score is at 15. She is obese and she has probably gained around 10 pounds over the past 1 year. She has various other comorbidities for now. PAST MEDICAL HISTORY: 1. Obesity. 2. Chronic anxiety. 3. Hypertension. 4. Bipolar disorder. 5. RLS. 6. Migraines. 7. Acid reflux. 8. Diabetes mellitus. 9. Bronchial asthma. 10.History of psoriasis with psoriatic arthritis. PAST SURGICAL HISTORY: Includes ten ankle surgeries and currently ankle is fused; cholecystectomy, tonsillectomy, and lap band insertion and removal. DRUG ALLERGIES: MULTIPLE INCLUDING KEFLEX, VANCOMYCIN, LATEX, CODEINE, MORPHINE AND SHE IS ALSO ALLERGIC TO KIWI. SHE IS ALSO ALLERGIC TO ROXICET. FAMILY HISTORY: Positive for obstructive sleep apnea. Family situation: The patient is currently disabled. She is living with her . She has raised 3 adopted kids and four of her biologic kids. No history of excessive cough caffeine consumption. No alcoholism. No substance abuse. No smoking. REVIEW OF SYSTEMS: Fourteen-point review of system was done. Positive findings are mentioned above in the history of present illness. She has issues with chronic pain. Chronic migraine. She has issues with bipolar disorder. No nighttime heartburn. Rest of the positive findings are mentioned above in history of present illness. No grinding of the teeth. No sleepwalking. No claustrophobia. She has chronic problems with anxiety and depression. Yet, no panic attacks. No sleep paralysis. No hallucinations. No cataplexy. PHYSICAL EXAMINATION: BP is 122/55, pulse 63, respirations 16, temp 98.3. Saturation 98% on room air. Height is 5 feet 7 inches, weight is 78 and neck size 16 inches. [place] score of 15. BMI is 43.5, temperature 98.3. GENERAL APPEARANCE: Calm, comfortable in no acute distress. HEAD is atraumatic, normocephalic. NECK: Supple. No JVD. No goiter or neck masses. Mallampati class IV. LUNGS: Diminished breath sounds. Otherwise clear. HEART: Sounds regular rate and rhythm. Normal S1, S2. No S3. No murmurs. ABDOMEN: Soft, nontender. No organomegaly. EXTREMITIES: No edema. No cyanosis or clubbing. NEUROLOGIC: She is alert and oriented x3. No focal neurological deficits. SKIN: Negative for any wounds or ulceration. IMPRESSION: 1. Chronic hypersomnia, [place] score of 15. Currently under investigation. Rule out obstructive sleep apnea. Rule out other cause of sleep fragmentation including her chronic psychiatric disorder which includes a combination of anxiety and bipolar disorder. 2. Chronic pain and neuropathy and restless legs, need to be also considered as comorbid conditions affecting her sleep quality. 3. Psoriasis along with cirrhotic arthritis. 4. Obesity with a BMI of 43. 5. Chronic anxiety. 6. Bipolar disorder. 7. Hypertension. 8. Migraine. 9. Acid reflux. 10.Diabetes mellitus. 11.Bronchial asthma. PLAN: 1. Encourage weight loss. 2. Implement good sleep hygiene measures. 3. Proceed with a screening polysomnogram to investigate the patient for obstructive sleep apnea and treat accordingly. 4. As mentioned the patient has various multiple medical problems and comorbidities that can also affect her sleep quality in general. MMODL / IJN: [id number] /
== END ==
LOC: SLEEP 13:38
PROVIDERS: ATTEND Internal Medicine Critical Care Medicine
DX: G47.10 Hypersomnia, unspecified (principal); G89.29 Other chronic pain; G62.9 Polyneuropathy, unspecified; G25.81 Restless legs syndrome; L40.9 Psoriasis, unspecified; M13.80 Other specified arthritis, unspecified site; E66.9 Obesity, unspecified; F41.9 Anxiety disorder, unspecified; I10 Essential (primary) hypertension; G43.909 Migraine, unspecified, not intractable, without status migrainosus; K21.9 Gastro-esophageal reflux disease without esophagitis; E11.9 Type 2 diabetes mellitus without complications; J45.909 Unspecified asthma, uncomplicated; Z88.1 Allergy status to other antibiotic agents; Z91.040 Latex allergy status; Z88.5 Allergy status to narcotic agent; Z91.018 Allergy to other foods; Z68.41 Body mass index [BMI] 40.0-44.9, adult; Z88.8 Allergy status to other drugs, medicaments and biological substances
CPT/HCPCS: 99211

== ENCOUNTER 2018-11-18 13:26 | Inpatient (IN) | payer OTHER, MEDICARE ==
[2018-11-18] MEDS ORDERED: SODIUM CHLORIDE 0.9% 1,000 ML IV STA (14:09)
[2018-11-18] MEDS ORDERED: HYDROmorphone 0.5 MG/0.5 ML SYRINGE IVP STA (14:10)
[2018-11-18] MEDS ORDERED: DEXAMETHASONE SOD PHOSPHATE 10 MG/ML 1 ML VIAL IV STA (14:11)
[2018-11-18] MEDS ORDERED: VANCOMYCIN IV PER PHARMACY 1 EACH MISC MISCELLANE PRN (14:11)
--- NOTE | 2018-11-18 14:14 | ED ---
Skin/Abscess/FB HPI - General Chief complaint: Skin/Abscess/Foreign Body Stated complaint: Rash Time Seen by Provider: 11/18/18 13:36 Source: patient, RN notes reviewed, old records reviewed Mode of arrival: ambulatory Limitations: no limitations - History of Present Illness Initial comments: This is a 43-year-old female the ER for evaluation. Patient's complicated skin soft tissue infection. Significant erythema of abdomen for significant psoriasis throughout body. Patient is not currently on treatment for rheumatology. She admits to no fevers but just feels weak feels like she has significant hotnessto anterior abdomen. Patient has significant history of psoriasis, recent diagnosis of C. diff on oral vancomycin currently. She is also on significant topical steroids as well as again vancomycin with worsening of all symptoms MD complaint: rash (Anterior abdomen arms diffuse body), other (Significant pustular psoriasis) -: week(s) Location: generalized Severity: severe Severity scale (1-10): 8 Quality: burning, stabbing, aching Consistency: constant, intermittent Worsens with: none Context: new medication, recent antibiotic Associated symptoms: fever, chills, itching Treatments Prior to Arrival: corticosteroid, antibiotic - Related Data Home Medications Medication Instructions Recorded Confirmed Albuterol Inhaler [Ventolin Hfa 1 - 2 puff INHALATION RT-Q6H PRN 11/06/17 11/18/18 Inhaler] EPINEPHrine [Epipen 2-Macario] 0.3 mg IM ONCE PRN 11/06/17 11/18/18 Famotidine [Pepcid] 40 mg PO BID 11/06/17 11/18/18 Folic Acid 1 mg PO DAILY 11/06/17 11/18/18 Methotrexate Sodium [Methotrexate] 20 mg PO DEVI 11/06/17 11/18/18 Metoprolol Succinate (ER) [Toprol 50 mg PO DAILY 11/06/17 11/18/18 XL] Montelukast [Singulair] 10 mg PO HS 11/06/17 11/18/18 Omeprazole [PriLOSEC] 20 mg PO AC-BID 11/06/17 11/18/18 Betamethasone Dipropionate 1 applic TOPICAL BID 11/18/18 11/18/18 [Diprolene AF 0.05% Cream] Budesonide/Formoterol Fumarate 2 puff INHALATION RT-BID 11/18/18 11/18/18 [Symbicort 160-4.5 Mcg Inhaler] Butalb/APAP/Caff 50-325-40Mg 1 tab PO Q4H PRN 11/18/18 11/18/18 [Fioricet 50-325-40] Clobetasol Propionate [Clobex 1 spray TOPICAL BID 11/18/18 11/18/18 [place] 0.05%] Ergocalciferol (Vitamin D2) 50,000 unit PO TH 11/18/18 11/18/18 [Vitamin D2] LORazepam [Ativan] 1 mg PO DAILY PRN 11/18/18 11/18/18 Ondansetron HCl [Zofran] 8 mg PO TID PRN 11/18/18 11/18/18 Topiramate [Topamax] 100 mg PO BID 11/18/18 11/18/18 Vancomycin HCl 250 mg PO Q6H 11/18/18 11/18/18 lamoTRIgine [LaMICtal] 200 mg PO DAILY 11/18/18 11/18/18 metFORMIN HCL [Glucophage] 1,000 mg PO HS 11/18/18 11/18/18 metFORMIN HCL [Glucophage] 500 mg PO DAILY 11/18/18 11/18/18 Previous Rx's Medication Instructions Recorded Prazosin [Minipress] 1 mg PO HS #30 cap 11/13/17 busPIRone HCL 15 mg PO TID #45 tablet 11/13/17 rOPINIRole HCL [Requip] 0.5 mg PO HS #30 tablet 11/13/17 Allergies Allergy/AdvReac Type Severity Reaction Status Date / Time cephalexin [From Keflex] Allergy Rash/Hives Verified 11/18/18 13:45 codeine Allergy Rash/Hives Verified 11/18/18 13:45 kiwi Allergy Dyspnea Verified 11/18/18 13:45 latex Allergy Rash/Hives Verified 11/18/18 13:45 vancomycin [From Vancocin] Allergy Rash/Hives Verified 11/18/18 13:45 morphine AdvReac BP Verified 11/18/18 13:45 DECREASES Review of Systems ROS Statement: Those systems with pertinent positive or pertinent negative responses have been documented in the HPI. ROS Other: All systems not noted in ROS Statement are negative. Past Medical History Past Medical History: Asthma Additional Past Medical History / Comment(s): psoriasis History of Any Multi-Drug Resistant Organisms: None Reported Past Surgical History: Cholecystectomy, Orthopedic Surgery, Tonsillectomy Additional Past Surgical History / Comment(s): lap band placement and removal Past Anesthesia/Blood Transfusion Reactions: No Reported Reaction Past Psychological History: Anxiety, Bipolar, Depression Smoking Status: Never smoker Past Alcohol Use History: None Reported Past Drug Use History: Marijuana - Past Family History Mother Family Medical History: Asthma Additional Family Medical History / Comment(s): Heart defects Father Family Medical History: Asthma, Hypertension Additional Family Medical History / Comment(s): POlyps removed from colon, heart disease. General Exam - General Exam Comments Initial Comments: Patient has significant psoriasis throughout body, some pressure psoriasis, significant anterior abdomen psoriasis with likely cellulitis Limitations: no limitations General appearance: alert, in no apparent distress Head exam: Present: atraumatic, normocephalic, normal inspection Eye exam: Present: normal appearance, PERRL, EOMI. Absent: scleral icterus, conjunctival injection, periorbital swelling ENT exam: Present: normal exam, mucous membranes moist Neck exam: Present: normal inspection. Absent: tenderness, meningismus, lymphadenopathy Respiratory exam: Present: normal lung sounds bilaterally. Absent: respiratory distress, wheezes, rales, rhonchi, stridor Cardiovascular Exam: Present: regular rate, normal rhythm, normal heart sounds. Absent: systolic murmur, diastolic murmur, rubs, gallop, clicks GI/Abdominal exam: Present: soft, normal bowel sounds. Absent: distended, tenderness, guarding, rebound, rigid Extremities exam: Present: normal inspection, full ROM, normal capillary refill. Absent: tenderness, pedal edema, joint swelling, calf tenderness Back exam: Present: normal inspection Neurological exam: Present: alert, oriented X3, CN II-XII intact Psychiatric exam: Present: normal affect, normal mood Skin exam: Present: warm, dry, intact, normal color, erythema, urticaria. Absent: rash Course Vital Signs 11/18/18 11/18/18 11/18/18 13:37 15:03 15:11 Temperature 98.4 F Pulse Rate 71 72 72 Respiratory 18 Rate Blood Pressure 141/76 O2 Sat by Pulse 98 Oximetry 11/18/18 16:05 Temperature 98.0 F Pulse Rate 72 Respiratory 18 Rate Blood Pressure 126/82 O2 Sat by Pulse 99 Oximetry Medical Decision Making - Medical Decision Making 43 female the ER for evaluation of significant rash C. diff. Patient replace on antibiotics at discretion of infectious disease and topical steroids. - Lab Data Result diagrams: 11/20/18 08:29 11/20/18 08:29 Lab Results 11/18/18 11/18/18 11/19/18 Range/Units 14:30 14:30 09:04 WBC 7.5 11.7 H (3.8-10.6) k/uL RBC 4.51 4.04 (3.80-5.40) m/uL Hgb 13.8 12.4 (11.4-16.0) gm/dL Hct 41.8 38.2 (34.0-46.0) % MCV 92.5 94.5 (80.0-100.0) fL MCH 30.5 30.6 (25.0-35.0) pg MCHC 32.9 32.4 (31.0-37.0) g/dL RDW 14.6 15.5 (11.5-15.5) % Plt Count 217 226 (150-450) k/uL Neutrophils % 74 83 % Lymphocytes % 14 11 % Monocytes % 7 5 % Eosinophils % 3 0 % Basophils % 0 0 % Neutrophils # 5.6 9.7 H (1.3-7.7) k/uL Lymphocytes # 1.1 1.2 (1.0-4.8) k/uL Monocytes # 0.5 0.5 (0-1.0) k/uL Eosinophils # 0.2 0.0 (0-0.7) k/uL Basophils # 0.0 0.0 (0-0.2) k/uL Sodium 141 (137-145) mmol/L Potassium 4.2 (3.5-5.1) mmol/L Chloride 109 H (98-107) mmol/L Carbon Dioxide 20 L (22-30) mmol/L Anion Gap 12 mmol/L BUN 7 (7-17) mg/dL Creatinine 0.81 (0.52-1.04) mg/dL Est GFR (CKD-EPI)AfAm >90 (>60 ml/min/1.73 sqM) Est GFR (CKD-EPI)NonAf 89 (>60 ml/min/1.73 sqM) Glucose 106 H (74-99) mg/dL Calcium 9.5 (8.4-10.2) mg/dL Phosphorus 3.3 (2.5-4.5) mg/dL Magnesium 2.0 (1.6-2.3) mg/dL Total Bilirubin 0.5 (0.2-1.3) mg/dL AST 27 (14-36) U/L ALT 36 (9-52) U/L Alkaline Phosphatase 97 (38-126) U/L Total Protein 7.1 (6.3-8.2) g/dL Albumin 4.1 (3.5-5.0) g/dL 11/19/18 11/20/18 11/20/18 Range/Units 09:04 08:29 08:29 WBC 6.8 (3.8-10.6) k/uL RBC 4.26 (3.80-5.40) m/uL Hgb 13.0 (11.4-16.0) gm/dL Hct 39.0 (34.0-46.0) % MCV 91.5 (80.0-100.0) fL MCH 30.5 (25.0-35.0) pg MCHC 33.4 (31.0-37.0) g/dL RDW 14.4 (11.5-15.5) % Plt Count 244 (150-450) k/uL Neutrophils % 69 % Lymphocytes % 19 % Monocytes % 8 % Eosinophils % 2 % Basophils % 0 % Neutrophils # 4.7 (1.3-7.7) k/uL Lymphocytes # 1.3 (1.0-4.8) k/uL Monocytes # 0.5 (0-1.0) k/uL Eosinophils # 0.1 (0-0.7) k/uL Basophils # 0.0 (0-0.2) k/uL Sodium 139 140 (137-145) mmol/L Potassium 4.1 3.8 (3.5-5.1) mmol/L Chloride 110 H 110 H (98-107) mmol/L Carbon Dioxide 18 L 19 L (22-30) mmol/L Anion Gap 11 11 mmol/L BUN 8 12 (7-17) mg/dL Creatinine 0.75 0.81 (0.52-1.04) mg/dL Est GFR (CKD-EPI)AfAm >90 >90 (>60 ml/min/1.73 sqM) Est GFR (CKD-EPI)NonAf >90 89 (>60 ml/min/1.73 sqM) Glucose 103 H 91 (74-99) mg/dL Calcium 9.0 8.9 (8.4-10.2) mg/dL Phosphorus (2.5-4.5) mg/dL Magnesium (1.6-2.3) mg/dL Total Bilirubin (0.2-1.3) mg/dL AST (14-36) U/L ALT (9-52) U/L Alkaline Phosphatase (38-126) U/L Total Protein (6.3-8.2) g/dL Albumin (3.5-5.0) g/dL Disposition Clinical Impression: Psoriasis, Pustular psoriasis, C. difficile colitis, Abdominal wall cellulitis, Cellulitis Disposition: ADMITTED IP TO THIS HOSP Condition: Fair
[2018-11-18] MEDS: SODIUM CHLORIDE 0.9% 1,000 ML IV STA ×2 (14:33→18:24)
[2018-11-18] MEDS ORDERED: IPRATROPIUM-ALBUTEROL 3 ML NEB INHALATION STA (14:43)
[2018-11-18 14:57] LABS: Basophils % (A) 0 %; Eosinophils # (A) 0.2 k/uL (0-0.7); Eosinophils % (A) 3 %; HCT 41.8 % (34.0-46.0); HGB 13.8 gm/dL (11.4-16.0); Lymphocytes # (A) 1.1 k/uL (1.0-4.8); Lymphocytes % (A) 14 %; MCH 30.5 pg (25.0-35.0); MCHC 32.9 g/dL (31.0-37.0); MCV 92.5 fL (80.0-100.0); Mean Platelet Volume 7.4; Monocytes # (A) 0.5 k/uL (0-1.0); Monocytes % (A) 7 %; Neutrophils # (A) 5.6 k/uL (1.3-7.7); Neutrophils % (A) 74 %; Platelet Count 217 k/uL (150-450); RBC 4.51 m/uL (3.80-5.40); RDW 14.6 % (11.5-15.5); WBC 7.5 k/uL (3.8-10.6)
[2018-11-18 15:15] LABS: ALT 36 U/L (9-52); AST 27 U/L (14-36); African American GFR (CKD) >90 (>60 ml/min/1.73 sqM); Albumin 4.1 g/dL (3.5-5.0); Alkaline Phosphatase 97 U/L (38-126); Anion Gap 12 mmol/L; Blood Urea Nitrogen 7 mg/dL (7-17); Calcium 9.5 mg/dL (8.4-10.2); Carbon Dioxide 20 mmol/L (22-30); Chloride 109 mmol/L (98-107); Glucose 106 mg/dL (74-99); Phosphorus 3.3 mg/dL (2.5-4.5); Potassium 4.2 mmol/L (3.5-5.1); Sodium 141 mmol/L (137-145); Total Bilirubin 0.5 mg/dL (0.2-1.3); Total Protein 7.1 g/dL (6.3-8.2)
[2018-11-18] MEDS ORDERED: SODIUM CHLORIDE 0.9% 1,000 ML IV ONE (16:04)
[2018-11-18] MEDS ORDERED: LORazepam 1 MG TAB PO PRN (17:32)
[2018-11-18] MEDS ORDERED: ALBUTEROL NEBULIZED 2.5 MG/3 ML INHALATION PRN (17:32)
[2018-11-18] MEDS ORDERED: EPINEPHrine 1 MG/ML 1 ML AMP IM PRN (17:32)
[2018-11-18] MEDS ORDERED: ONDANSETRON 4 MG TAB PO PRN (17:32)
[2018-11-18] MEDS ORDERED: VANCOMYCIN HCL 250 MG PO SCH (17:45)
[2018-11-18] MEDS ORDERED: BUTALB/APAP/CAFF 50-325-40MG TAB PO PRN (18:19)
[2018-11-18] MEDS: HYDROmorphone 1 MG/ML 1 ML SYRINGE IVP PRN (18:24)
[2018-11-18] MEDS: CHERRY FLAVOR 60 ML BOTTLE PO PRN (19:32)
[2018-11-18] MEDS: VANCOMYCIN ORAL SOLUTION 250 MG/5 ML BOTTLE PO SCH ×2 (19:32→23:59)
[2018-11-18] MEDS: BETAMETHASONE DIPROPIONATE 0.05% CREAM 15 GM TUBE TOPICAL SCH (19:33)
[2018-11-18] MEDS: HEPARIN SODIUM,PORCINE 5,000 UNIT/ML 1 ML VIAL SQ SCH (19:33)
[2018-11-18] MEDS: CLOBETASOL PROP 0.05% CR 15GM TOPICAL SCH (19:33)
[2018-11-18] MEDS: busPIRone HCl 5 MG TAB PO SCH (19:34)
[2018-11-18] MEDS: PRAZOSIN 1 MG CAP PO SCH (19:34)
[2018-11-18] MEDS: MONTELUKAST 10 MG TAB PO SCH (19:34)
[2018-11-18] MEDS: FAMOTIDINE 20 MG TAB PO SCH (19:34)
[2018-11-18] MEDS: TOPIRAMATE 100 MG TAB PO SCH (19:34)
[2018-11-18] MEDS: metFORMIN 500 MG TAB PO SCH (19:34)
[2018-11-18] MEDS: SYMBICORT 160-4.5 MCG INHALER INHALATION SCH (20:15)
[2018-11-18] MEDS: IPRATROPIUM 0.5 MG/2.5 ML NEBU INHALATION SCH (20:15)
[2018-11-18] MEDS ORDERED: INSULIN ASPART (NovoLOG) 100 UNIT/ML VIAL SQ SCH (21:00)
--- NOTE | 2018-11-18 23:12 | HP ---
HISTORY AND PHYSICAL DATE OF SERVICE: 11/18/2018 CHIEF COMPLAINT: Skin rash. HISTORY OF PRESENT ILLNESS: 43-year-old woman with a past medical history of psoriasis, history of asthma, history of cholecystectomy, C difficile colitis, anxiety, bipolar depression who also has again recent recurrence of diarrhea. C difficile positive. Patient is on p.o. vancomycin. Apparently patient apparently swam in the [place] and developed small skin rashes especially on the trunk. There is no history of fever, rigors or chills. No history of headache, loss of consciousness or seizures. The patient admitted to the hospital for further evaluation and treatment. PAST MEDICAL HISTORY: Asthma, psoriasis, anxiety, bipolar depression. MEDICATIONS: Prior to admission include home medications are: 1. Requip 0.5 mg q.h.s. 2. Glucophage 1000 mg q.h.s. and 500 mg p.o. daily. 3. Lamictal 200 mg p.o. daily. 4. Buspirone 15 mg p.o. t.i.d. 5. Vancomycin 250 mg p.o. q.h.s. 6. Topamax 100 mg p.o. b.i.d. 7. Minipress 1 mg p.o. q.h.s. 8. Zofran 8 mg p.o. t.i.d. p.r.n. 9. Prilosec 20 mg a.c. b.i.d. 10.Singulair 10 mg q.h.s. 11.Toprol-XL 50 mg p.o. daily. 12.Methotrexate 20 mg p.o. Monday. 13.Ativan 1 mg daily p.r.n. 14.Folic acid 1 mg p.o. daily. 15.Pepcid 40 mg p.o. b.i.d. 16.Vitamin D2 50,000 p.o. . 17.EpiPen 2 [place] 0.3 p.r.n. 18.Clobex spray 1 spray topically b.i.d. 19.Symbicort 160/4.5 two puffs b.i.d. 20.Diprolene 1 application b.i.d. 21.Ventolin 1-2 puffs q.6h p.r.n. ALLERGIES: CEPHALEXIN, CODEINE, [place]IW[place], LATEX, VANCOMYCIN, MORPHINE. FAMILY HISTORY: No history of heart disease or strokes in the family. SOCIAL HISTORY: No history of smoking, occasional THC. REVIEW OF SYSTEMS: ENT: No diminished vision. No diminished hearing. CARDIOVASCULAR: No angina or palpitations. RESPIRATORY: As mentioned earlier. GI: As mentioned earlier. no dysuria. NERVOUS SYSTEM: No numbness or weakness. ALLERGY/IMMUNOLOGY: As mentioned earlier. HEMATOLOGY/ONCOLOGY: No history of anemia. ENDOCRINE: No history of diabetes or hypothyroidism. CONSTITUTIONAL: As mentioned earlier. DERMATOLOGY as mentioned earlier. RHEUMATOLOGY: Negative. PSYCHIATRY as mentioned earlier. PHYSICAL EXAMINATION: Alert and oriented times three. Pulse 72, blood pressure 126/82, respiration 18, temperature 98 degrees, pulse ox 98% on room air. HEENT: Conjunctivae normal. Oral mucosa moist. NECK is no jugular venous distention. No carotid bruit. No lymph node enlargement. CARDIOVASCULAR: S1, S2 muffled. No S3. No S4. RESPIRATORY: Breath sounds diminished in the bases. No rhonchi. No crackles. ABDOMEN: Soft, nontender. No mass palpable. LEGS: No edema. No swelling. NERVOUS SYSTEM: Higher functions as mentioned earlier. Moves all 4 limbs. No focal motor or sensory deficits. LYMPHATICS: No lymph nodes palpable in the neck, axillae or groin. SKIN: Diffuse psoriatic lesions nontender with exfoliation present. JOINTS: No active deforming arthropathy. LABS: CBC within normal limits. Sodium 140, potassium 4.2. ASSESSMENT: 1. Acute psoriasis, acute exacerbation. 2. Acute Clostridium difficile colitis. 3. Recurrent Clostridium difficile colitis. 4. Asthma. 5. History of psoriasis. 6. Cholecystectomy. 7. History of degenerative joint disease. 8. Anxiety, bipolar depression. 9. Obesity with body mass of 39.5. RECOMMENDATIONS AND DISCUSSION: In this 43-year-old woman who presented with multiple complex medical issues, we will monitor the patient closely, continue the current medications, management and symptomatic treatment. Otherwise, resume the home medication including p.o. vancomycin. Because of the recurrent vancomycin, I would refer him to empiric antibiotics treatment at this time and consult Infectious Disease, Dr. Little and Dr. Ricardo also will be consulted for psoriasis acute exacerbation, local treatment also recommended. Prognosis guarded because of multiple complex medical issues. Further recommendations to follow. A copy of dictation being forwarded to Dr. Mayorga who is the primary physician. MMODL / IJN: [id number] /
[2018-11-19] MEDS: HYDROmorphone 1 MG/ML 1 ML SYRINGE IVP PRN ×4 (01:29→13:11)
[2018-11-19] MEDS: CHERRY FLAVOR 60 ML BOTTLE PO PRN ×3 (05:32→17:28)
[2018-11-19] MEDS: VANCOMYCIN ORAL SOLUTION 250 MG/5 ML BOTTLE PO SCH ×3 (05:32→17:28)
[2018-11-19] MEDS ORDERED: PANTOPRAZOLE 40 MG TABLET PO SCH (07:30)
[2018-11-19] MEDS: SYMBICORT 160-4.5 MCG INHALER INHALATION SCH ×2 (08:44→20:18)
[2018-11-19] MEDS: IPRATROPIUM 0.5 MG/2.5 ML NEBU INHALATION SCH ×4 (08:44→20:18)
[2018-11-19] MEDS: lamoTRIgine 100 MG TAB PO SCH (09:31)
[2018-11-19] MEDS: busPIRone HCl 5 MG TAB PO SCH ×3 (09:31→20:48)
[2018-11-19] MEDS: metFORMIN 500 MG TAB PO SCH ×2 (09:31→20:48)
[2018-11-19] MEDS: HEPARIN SODIUM,PORCINE 5,000 UNIT/ML 1 ML VIAL SQ SCH ×2 (09:31→20:48)
[2018-11-19] MEDS: TOPIRAMATE 100 MG TAB PO SCH ×2 (09:31→20:48)
[2018-11-19] MEDS: FAMOTIDINE 20 MG TAB PO SCH ×2 (09:32→20:48)
[2018-11-19] MEDS: METOPROLOL SUCCINATE (ER) 50 MG TAB.ER.24H PO SCH (09:32)
[2018-11-19] MEDS: FOLIC ACID 1 MG TAB PO SCH (09:32)
[2018-11-19] MEDS: PANTOPRAZOLE 40 MG TABLET PO SCH ×2 (09:33→17:28)
[2018-11-19] MEDS: CLOBETASOL PROP 0.05% CR 15GM TOPICAL SCH (09:41)
[2018-11-19] MEDS ORDERED: ONDANSETRON 4 MG/2 ML VIAL IVP PRN (09:43)
[2018-11-19 09:56] LABS: Basophils % (A) 0 %; Eosinophils % (A) 0 %; HCT 38.2 % (34.0-46.0); HGB 12.4 gm/dL (11.4-16.0); Lymphocytes # (A) 1.2 k/uL (1.0-4.8); Lymphocytes % (A) 11 %; MCH 30.6 pg (25.0-35.0); MCHC 32.4 g/dL (31.0-37.0); MCV 94.5 fL (80.0-100.0); Mean Platelet Volume 7.9; Monocytes # (A) 0.5 k/uL (0-1.0); Monocytes % (A) 5 %; Neutrophils # (A) 9.7 k/uL (1.3-7.7); Neutrophils % (A) 83 %; Platelet Count 226 k/uL (150-450); RBC 4.04 m/uL (3.80-5.40); RDW 15.5 % (11.5-15.5); WBC 11.7 k/uL (3.8-10.6)
[2018-11-19 10:05] LABS: African American GFR (CKD) >90 (>60 ml/min/1.73 sqM); Anion Gap 11 mmol/L; Blood Urea Nitrogen 8 mg/dL (7-17); Carbon Dioxide 18 mmol/L (22-30); Chloride 110 mmol/L (98-107); Glucose 103 mg/dL (74-99); Potassium 4.1 mmol/L (3.5-5.1); Sodium 139 mmol/L (137-145)
[2018-11-19] MEDS: BETAMETHASONE DIPROPIONATE 0.05% CREAM 15 GM TUBE TOPICAL SCH (11:21)
[2018-11-19] MEDS: DAPTOmycin 500 MG in SODIUM CHLORIDE 0.9% 50 ML IVPB SCH (14:09)
[2018-11-19] MEDS: METOCLOPRAMIDE 5 MG/ML 2 ML VIAL IVP PRN (14:54)
--- NOTE | 2018-11-19 18:58 | PN ---
PROGRESS NOTE DATE OF SERVICE: 11/19/2018 This 43-year-old woman who was admitted with acute cellulitis acute exacerbation also had C difficile colitis. Patient also had diarrhea. Infectious disease and dermatology consultation pending at this time. No chest pain. No palpitations. No fever. PHYSICAL EXAM: Alert and oriented times three. Pulse 53, blood pressure 117/78, respiration 18, temp 97.3, pulse ox 97% on room air. HEENT: Conjunctivae normal. CARDIOVASCULAR: S1, S2 muffled. RESPIRATORY: Breath sounds diminished in the bases. Bilateral scattered rhonchi and crackles. ABDOMEN: Soft, nontender. No mass palpable. LEGS: No edema. No swelling. NERVOUS SYSTEM: Higher functions as mentioned earlier. Moves all 4 limbs. No focal motor or sensory deficits. LYMPHATICS: No lymph nodes palpable in the neck, axillae or groin. JOINTS: No active deforming arthropathy. LABS: At this time shows WBC 11.7, hemoglobin 12.4, sodium 139, potassium 4.1. ASSESSMENT: 1. Acute psoriasis, acute exacerbation. 2. Acute Clostridium difficile colitis. 3. Recurrent Clostridium difficile colitis. 4. Asthma. 5. History of psoriasis. 6. Cholecystectomy. 7. History of degenerative joint disease. 8. Anxiety, bipolar depression. 9. Obesity with body mass index 39.5. RECOMMENDATIONS AND DISCUSSION: I recommend to continue current medications, continue symptomatic treatment. Await Infectious Disease and Dermatology evaluation. The patient is on p.o. vancomycin. Further recommendations to follow. MMODL / IJN: [id number] /
[2018-11-19] MEDS: PRAZOSIN 1 MG CAP PO SCH (20:48)
[2018-11-19] MEDS: MONTELUKAST 10 MG TAB PO SCH (20:48)
--- NOTE | 2018-11-20 00:05 | P.CONS ---
History of Present Illness - Reason for Consult Consult date: 11/19/18 Abdominal wall cellulitis and C. diff colitis Requesting physician: Leni Cadet - Chief Complaint Abdominal wall pain swelling and redness x few days - History of Present Illness Patient is a 43-year-old female with recent history of C. diff colitis responded to oral vancomycin subsequently did have recurrence for the patient to be started back on oral vancomycin by her primary care physician patient says she went out on the leg and actually did not swim this for the water on her lower abdominal area she possibly has been out in the sun and subsequently de velop a rash on the lower abdominal area with more of a diffuse erythema she did have some sharp pain to the affected lower abdominal area intensity 6-7 out of 10 and no radiation patient did have some skin breakdown but no purulent drainage did have some chills but denies high-grade fever with the symptoms the patient presented to [facility] ER she has been actually diagnosed with a pustular psoriasis with application of local steroid creams to the abdominal wall however or admission worsening after she did apply those cream this morning infection disease was consulted for recommendation regarding antibiotic therapy as for her C. diff colitis patient say she didn't have any bowel movement for the last 2 days has been taking oral vancomycin Review of Systems CONSTITUTIONAL: Positive for weakness. Chills but denies high-grade Fever EYES: No complaint. ENT:No complaint. RESPIRATORY: No complaint. CARDIOVASCULAR: No complaint. GENITOURINARY: No complaint. GASTROINTESTINAL: As per history of present illness MUSCULOSKELETAL: No complaint. INTEGUMENTARY: As per history of present illness. PSYCHOLOGICAL: No complaint. ENDOCRINE: No complaint. NEUROLOGIC: No complaint. Past Medical History Past Medical History: Asthma, GERD/Reflux, Osteoarthritis (OA) Additional Past Medical History / Comment(s): psoriasis, polycystic ovarian syndrome (PCOS), Migraines, Restless leg syndrome, PTSD, Arrythmia (extra heart beats) History of Any Multi-Drug Resistant Organisms: C-DIFF, MRSA Year Discovered:: 08/08/2012 MDRO Source:: Left ankle, (cdiff 11/15/18) Past Surgical History: Section, Cholecystectomy, Orthopedic Surgery, Tonsillectomy, Tubal Ligation, Uterine Ablation Additional Past Surgical History / Comment(s): lap band placement and removal, 10 ankle surgeries on left (plate and 16 screws) Past Anesthesia/Blood Transfusion Reactions: No Reported Reaction Past Psychological History: Anxiety, Bipolar, Depression Smoking Status: Never smoker Past Alcohol Use History: None Reported Past Drug Use History: Marijuana - Past Family History Mother Family Medical History: Asthma Additional Family Medical History / Comment(s): Heart defects Father Family Medical History: Asthma, Hypertension Additional Family Medical History / Comment(s): POlyps removed from colon, heart disease. Medications and Allergies Home Medications Medication Instructions Recorded Confirmed Type Albuterol Inhaler [Ventolin Hfa 1 - 2 puff INHALATION RT-Q6H PRN 11/06/17 11/18/18 History Inhaler] EPINEPHrine [Epipen 2-Macario] 0.3 mg IM ONCE PRN 11/06/17 11/18/18 History Famotidine [Pepcid] 40 mg PO BID 11/06/17 11/18/18 History Folic Acid 1 mg PO DAILY 11/06/17 11/18/18 History Methotrexate Sodium [Methotrexate] 20 mg PO DEVI 11/06/17 11/18/18 History Metoprolol Succinate (ER) [Toprol 50 mg PO DAILY 11/06/17 11/18/18 History XL] Montelukast [Singulair] 10 mg PO HS 11/06/17 11/18/18 History Omeprazole [PriLOSEC] 20 mg PO AC-BID 11/06/17 11/18/18 History Prazosin [Minipress] 1 mg PO HS #30 cap 11/13/17 11/18/18 Rx busPIRone HCL 15 mg PO TID #45 tablet 11/13/17 11/18/18 Rx rOPINIRole HCL [Requip] 0.5 mg PO HS #30 tablet 11/13/17 11/18/18 Rx Betamethasone Dipropionate 1 applic TOPICAL BID 11/18/18 11/18/18 History [Diprolene AF 0.05% Cream] Budesonide/Formoterol Fumarate 2 puff INHALATION RT-BID 11/18/18 11/18/18 History [Symbicort 160-4.5 Mcg Inhaler] Butalb/APAP/Caff 50-325-40Mg 1 tab PO Q4H PRN 11/18/18 11/18/18 History [Fioricet 50-325-40] Clobetasol Propionate [Clobex 1 spray TOPICAL BID 11/18/18 11/18/18 History [place] 0.05%] Ergocalciferol (Vitamin D2) 50,000 unit PO TH 11/18/18 11/18/18 History [Vitamin D2] LORazepam [Ativan] 1 mg PO DAILY PRN 11/18/18 11/18/18 History Ondansetron HCl [Zofran] 8 mg PO TID PRN 11/18/18 11/18/18 History Topiramate [Topamax] 100 mg PO BID 11/18/18 11/18/18 History Vancomycin HCl 250 mg PO Q6H 11/18/18 11/18/18 History lamoTRIgine [LaMICtal] 200 mg PO DAILY 11/18/18 11/18/18 History metFORMIN HCL [Glucophage] 1,000 mg PO HS 11/18/18 11/18/18 History metFORMIN HCL [Glucophage] 500 mg PO DAILY 11/18/18 11/18/18 History Allergies Allergy/AdvReac Type Severity Reaction Status Date / Time cephalexin [From Keflex] Allergy Rash/Hives Verified 11/18/18 13:45 codeine Allergy Rash/Hives Verified 11/18/18 13:45 kiwi Allergy Dyspnea Verified 11/18/18 13:45 latex Allergy Rash/Hives Verified 11/18/18 13:45 vancomycin [From Vancocin] Allergy Rash/Hives Verified 11/18/18 13:45 morphine AdvReac BP Verified 11/18/18 13:45 DECREASES Physical Exam Vitals: Vital Signs Temp Pulse Pulse Resp BP BP Pulse Ox 11/19/18 04:15 97.5 F L 62 20 110/70 97 11/18/18 21:20 97.5 F L 70 20 117/74 98 11/18/18 20:25 72 11/18/18 20:18 70 11/18/18 18:21 98.1 F 77 18 128/85 97 11/18/18 16:05 98.0 F 72 18 126/82 99 11/18/18 15:11 72 11/18/18 15:03 72 11/18/18 13:37 98.4 F 71 18 141/76 98 Intake and Output 11/18/18 11/19/18 11/19/18 22:59 06:59 14:59 Intake Total 200 100 200 Balance 200 100 200 Intake: Oral 200 100 200 Other: # Voids 1 1 GENERAL DESCRIPTION: Middle-aged female lying in bed, no distress. No tachypnea or accessory muscle of respiration use. HEENT: Shows Pallor , no scleral icterus. Oral mucous membrane is dry. No pharyngeal erythema or thrush NECK: Trachea central, no thyromegaly. LUNGS: Unlabored breathing. Clear to auscultation anteriorly. No wheeze or crackle. HEART: S1, S2, regular rate and rhythm. No loud murmur ABDOMEN: Soft, lower abdominal wall redness which is diffuse slightly warm and tender to touch no drainage no guarding or rigidity, no organomegaly EXTREMITIES: No edema of feet. SKIN: No rash, no masses palpable. NEUROLOGICAL: The patient is awake, alert, oriented x3, mood and affect normal. Results CBC & Chem 7: 11/19/18 09:04 11/19/18 09:04 Labs: Abnormal Lab Results - Last 24 Hours (Table) 11/18/18 11/19/18 11/19/18 Range/Units 14:30 09:04 09:04 WBC 11.7 H (3.8-10.6) k/uL Neutrophils # 9.7 H (1.3-7.7) k/uL Chloride 109 H 110 H (98-107) mmol/L Carbon Dioxide 20 L 18 L (22-30) mmol/L Glucose 106 H 103 H (74-99) mg/dL Assessment and Plan Assessment: 1-patient with lower abdominal wall cellulitis with diffuse swelling redness likely streptococcal disease clinically doubt pustular psoriasis with apparent worsening with the steroids as noticed by the RN this morning 2-C. diff colitis for the patient currently on oral vancomycin 3-Patient with multiple antibiotics ALLERGIES that will limit the number of antibiotic safe to use Plan: 1-Kj the area of the abdominal wall redness 2-daptomycin 4 mg per KG daily 3-vancomycin 250 by mouth every 6 hours for her C. diff colitis we will follow on clinical condition and culture to further adjust medication if needed Thank you for this consultation will follow this patient along with you Time with Patient: Greater than 30
[2018-11-20] MEDS: VANCOMYCIN ORAL SOLUTION 250 MG/5 ML BOTTLE PO SCH ×4 (05:43→17:21)
[2018-11-20] MEDS: CHERRY FLAVOR 60 ML BOTTLE PO PRN ×4 (05:43→17:21)
[2018-11-20] MEDS: IPRATROPIUM 0.5 MG/2.5 ML NEBU INHALATION SCH ×4 (08:07→19:46)
[2018-11-20] MEDS: SYMBICORT 160-4.5 MCG INHALER INHALATION SCH ×2 (08:07→19:46)
[2018-11-20 08:45] LABS: Basophils % (A) 0 %; Eosinophils # (A) 0.1 k/uL (0-0.7); Eosinophils % (A) 2 %; Lymphocytes # (A) 1.3 k/uL (1.0-4.8); Lymphocytes % (A) 19 %; MCH 30.5 pg (25.0-35.0); MCHC 33.4 g/dL (31.0-37.0); MCV 91.5 fL (80.0-100.0); Mean Platelet Volume 7.3; Monocytes # (A) 0.5 k/uL (0-1.0); Monocytes % (A) 8 %; Neutrophils # (A) 4.7 k/uL (1.3-7.7); Neutrophils % (A) 69 %; Platelet Count 244 k/uL (150-450); RBC 4.26 m/uL (3.80-5.40); RDW 14.4 % (11.5-15.5); WBC 6.8 k/uL (3.8-10.6)
[2018-11-20 09:16] LABS: African American GFR (CKD) >90 (>60 ml/min/1.73 sqM); Anion Gap 11 mmol/L; Blood Urea Nitrogen 12 mg/dL (7-17); Calcium 8.9 mg/dL (8.4-10.2); Carbon Dioxide 19 mmol/L (22-30); Chloride 110 mmol/L (98-107); Glucose 91 mg/dL (74-99); Potassium 3.8 mmol/L (3.5-5.1); Sodium 140 mmol/L (137-145)
[2018-11-20] MEDS: METOCLOPRAMIDE 5 MG/ML 2 ML VIAL IVP PRN (09:41)
[2018-11-20] MEDS: METOPROLOL SUCCINATE (ER) 50 MG TAB.ER.24H PO SCH (09:42)
[2018-11-20] MEDS: FAMOTIDINE 20 MG TAB PO SCH ×2 (09:42→21:57)
[2018-11-20] MEDS: busPIRone HCl 5 MG TAB PO SCH ×3 (09:43→21:58)
[2018-11-20] MEDS: FOLIC ACID 1 MG TAB PO SCH (09:43)
[2018-11-20] MEDS: metFORMIN 500 MG TAB PO SCH ×2 (09:43→21:55)
[2018-11-20] MEDS: TOPIRAMATE 100 MG TAB PO SCH ×2 (09:43→21:56)
[2018-11-20] MEDS: PANTOPRAZOLE 40 MG TABLET PO SCH ×2 (09:43→17:21)
[2018-11-20] MEDS: HEPARIN SODIUM,PORCINE 5,000 UNIT/ML 1 ML VIAL SQ SCH ×2 (09:43→21:57)
[2018-11-20] MEDS: lamoTRIgine 100 MG TAB PO SCH (09:46)
[2018-11-20] MEDS: DAPTOmycin 500 MG in SODIUM CHLORIDE 0.9% 50 ML IVPB SCH (14:38)
[2018-11-20] MEDS: KETOROLAC 30 MG/ML 1 ML VIAL IVP PRN ×2 (14:45→22:19)
--- NOTE | 2018-11-20 18:47 | PN ---
PROGRESS NOTE DATE OF SERVICE: 11/20/2018. REASON FOR FOLLOWUP: 1. Abdominal wall cellulitis. 2. C difficile colitis. INTERVAL HISTORY: The patient is currently afebrile. The patient abdominal pain and redness is slightly decreased. No new lesion has been noted. No chest pain, shortness of breath or cough or any worsening diarrhea. PHYSICAL EXAMINATION: Blood pressure 141/85 with a pulse of 73, temperature 98. She is 98% on room air. General description is a middle aged female lying in bed in no distress. Respiratory system: Unlabored breathing. Clear to auscultation anteriorly. Heart S1, S2. Regular rate and rhythm. ABDOMEN: Soft. Abdominal wall redness slightly decreased. No open wounds or any drainage. EXTREMITIES: No edema of the feet. LABS: Hemoglobin is 13, white count 6.8. Blood culture negative. DIAGNOSTIC IMPRESSION AND PLAN: 1. Patient with abdominal wall cellulitis. Patient at this time to continue with daptomycin in view of her MULTIPLE ANTIBIOTIC ALLERGIES. Recommend getting a midline and continuation of daptomycin as an outpatient for at least 10 days to finish a course of therapy for abdominal cellulitis. 2. C-difficile colitis. Continue with p.o. vancomycin and advised decreased probiotics and yogurt daily. Continue supportive care. MMODL / IJN: [id number] /
[2018-11-20] MEDS ORDERED: lamoTRIgine 100 MG TAB PO SCH (21:00)
[2018-11-20] MEDS: PRAZOSIN 1 MG CAP PO SCH (21:56)
[2018-11-20] MEDS: MONTELUKAST 10 MG TAB PO SCH (21:56)
--- NOTE | 2018-11-20 23:37 | P.PN ---
Subjective Progress Note Date: 11/20/18 Principal diagnosis: This is a 43 year old female that was admitted for pustular psoriasis with acute cellulitis as well as c diff colitis and is being closely monitored. Infectious disease is following and patient currently remains on oral vanco for the c diff. Stool sample sent today and shows negative for c diff at this time. Patient is currently on IV antibiotics per ID recommendations. Patient is awaiting a rheumatology consult at this time. Patient denies any chest pain, shortness of breath, or palpitations at this time. Patient is having some generalized pain and discomfort of the abdominal skin as this is where the pustular psoriasis exacerbation and cellulitis is occurring. Patient denies any nausea or vomiting at this time. Patient is afebrile. Guarded prognosis. Objective - Vital Signs Vital signs: Vital Signs Temp 98 F 11/20/18 15:00 Pulse 76 11/20/18 15:00 Resp 18 11/20/18 15:00 BP 141/85 11/20/18 15:00 Pulse Ox 98 11/20/18 15:00 Intake & Output 11/19/18 11/20/18 11/20/18 18:59 06:59 18:59 Intake Total 200 300 Balance 200 300 Intake: Oral 200 300 Other: # Voids 3 1 1 # Bowel Movements 3 - Exam Gen: This is a 43 year old female in no acute distress. Vital signs are stable. Blood pressure is 124/76 , temp is 97.4 F, pulse is 71 , resp are 16 , oxygen saturation is 99 % on room air. HEENT: Head is atraumatic, normocephalic. Pupils equal, round. Sclerae is anicteric. NECK: Supple. No JVD. No lymphadenopathy. No thyromegaly. LUNGS: Clear to auscultation. No wheezes or rhonchi. No intercostal retractions. HEART: Regular rate and rhythm. No murmur. ABDOMEN: Soft. Bowel sounds are present. No masses. mild tenderness upon palpation due to psoriasis exacerbation. EXTREMITIES: No pedal edema. No calf tenderness. NEUROLOGICAL: Patient is awake, alert and oriented x3. Cranial nerves 2 through 12 are grossly intact. SKIN: diffuse redness, scaling, plaque, with multiple purulent papules noted on the abdomen and sides of the abdomen. - Labs CBC & Chem 7: 11/20/18 08:29 11/20/18 08:29 Labs: Abnormal Lab Results - Last 24 Hours (Table) 11/20/18 Range/Units 08:29 Chloride 110 H (98-107) mmol/L Carbon Dioxide 19 L (22-30) mmol/L Microbiology - Last 24 Hours (Table) 11/18/18 14:30 Blood Culture - Preliminary Blood No Growth after 24 hours Assessment and Plan Assessment: Acute pustular psoriasis, acute exacerbation Acute clostridium difficile colitis Recurrent C. diff colitis Asthma History of psoriasis Cholecystectomy History of degenerative joint disease Anxiety, bipolar depression Obesity with body mass index of 39.5 Recommendations and discussion: Recommend to continue current medications, continue symptomatic treatment. Awaiting dermatology consultation at this time. Infectious disease is following. Patient is on IV daptomycin. Patient will receive a midline and continue IV antibiotics in the outpatient setting per infectious disease recommendations. Patient will also continue oral vanco to complete the course of antibiotic therapy for c diff colitis. Guarded prognosis. Further recommendations to follow. Probable discharge in 24 hours.
[2018-11-21] MEDS: CHERRY FLAVOR 60 ML BOTTLE PO PRN ×3 (00:11→12:52)
[2018-11-21] MEDS: VANCOMYCIN ORAL SOLUTION 250 MG/5 ML BOTTLE PO SCH ×3 (00:11→12:52)
[2018-11-21 06:06] VITALS: PULSE 74
[2018-11-21] MEDS: SYMBICORT 160-4.5 MCG INHALER INHALATION SCH (07:54)
[2018-11-21] MEDS: IPRATROPIUM 0.5 MG/2.5 ML NEBU INHALATION SCH ×3 (07:54→15:20)
[2018-11-21] MEDS: METOCLOPRAMIDE 5 MG/ML 2 ML VIAL IVP PRN (08:00)
[2018-11-21] MEDS: METOPROLOL SUCCINATE (ER) 50 MG TAB.ER.24H PO SCH (08:01)
[2018-11-21] MEDS: busPIRone HCl 5 MG TAB PO SCH (08:01)
[2018-11-21] MEDS: TOPIRAMATE 100 MG TAB PO SCH (08:01)
[2018-11-21] MEDS: metFORMIN 500 MG TAB PO SCH (08:02)
[2018-11-21] MEDS: FAMOTIDINE 20 MG TAB PO SCH (08:02)
[2018-11-21] MEDS: PANTOPRAZOLE 40 MG TABLET PO SCH (08:02)
[2018-11-21] MEDS: FOLIC ACID 1 MG TAB PO SCH (08:02)
[2018-11-21] MEDS: HEPARIN SODIUM,PORCINE 5,000 UNIT/ML 1 ML VIAL SQ SCH (08:02)
[2018-11-21 09:25] LABS: Basophils % (A) 0 %; Eosinophils # (A) 0.1 k/uL (0-0.7); Eosinophils % (A) 2 %; HCT 39.4 % (34.0-46.0); Lymphocytes # (A) 1.2 k/uL (1.0-4.8); Lymphocytes % (A) 15 %; MCH 30.2 pg (25.0-35.0); MCHC 32.9 g/dL (31.0-37.0); MCV 91.8 fL (80.0-100.0); Mean Platelet Volume 7.4; Monocytes # (A) 0.7 k/uL (0-1.0); Monocytes % (A) 9 %; Neutrophils # (A) 5.6 k/uL (1.3-7.7); Neutrophils % (A) 72 %; Platelet Count 250 k/uL (150-450); RDW 14.3 % (11.5-15.5); WBC 7.7 k/uL (3.8-10.6)
[2018-11-21 09:38] LABS: African American GFR (CKD) >90 (>60 ml/min/1.73 sqM); Anion Gap 11 mmol/L; Blood Urea Nitrogen 14 mg/dL (7-17); Calcium 9.1 mg/dL (8.4-10.2); Carbon Dioxide 20 mmol/L (22-30); Chloride 109 mmol/L (98-107); Glucose 93 mg/dL (74-99); Potassium 3.6 mmol/L (3.5-5.1); Sodium 140 mmol/L (137-145)
--- NOTE | 2018-11-21 14:17 | P.DS ---
Providers Date of admission: 11/20/18 10:36 Expected date of discharge: 11/21/18 Attending physician: Leni Cadet Consults: 11/18/18 16:04 Consult Physician Routine Consulting Provider: Yuni Little Consult Reason/Comments: ID Do you want consulting provider notified?: Yes 11/18/18 16:07 Consult Physician Routine Consulting Provider: Savana Ricardo Consult Reason/Comments: known Do you want consulting provider notified?: Yes Primary care physician: [facility] Course: Final diagnosis Acute pustular psoriasis, acute exacerbation Acute C. diff colitis Recurrent C. diff colitis Asthma History of psoriasis Cholecystectomy History of degenerative joint disease Anxiety, bipolar depression obesity with body mass index of 39.5 Discharge disposition This patient is being discharged in a stable condition with guarded prognosis to home. Per infectious disease recommendations patient will continue with IV antibiotic therapy of daptomycin daily and will go to the [facility] for daily infusions. Patient will follow-up with her health informatics advisor Dr. Ricardo this week. History of present illness This is a 43-year-old female who was admitted for pustular psoriasis with acute cellulitis as well as C. diff colitis. Patient was currently on a few days of oral Vanco for the C. diff and if they continue for the next 4 days to complete a ten-day course per infectious disease. Patient will also be going home with IV antibiotic therapy in the outpatient setting and will be receiving infusions at [facility]. Patient will follow-up with her health informatics advisor within the week. Patient denies any shortness of breath, chest pain, or palpitations at this time. Patient remains afebrile. Patient denies any nausea or vomiting and is tolerating diet. Patient is eager to go home today as it is her 26 year anniversary with her . Patient verbalizes understanding and agrees with the treatment plan. Patient did receive a midline in the left upper arm this morning for the IV therapy. Patient is currently stable with much improvement. On exam vital signs are stable. Blood pressure is 106/51, pulse is 74, respirations are 16, temp is 97.7F, oxygen saturation is 98% on room air. S1 and S2 are normal. Respiratory system is clear to auscultation. Abdomen is soft with mild tenderness upon palpation due to the pustular psoriatic exacerb ation with cellulitis. Nervous system shows no focal deficits and gait is steady. Please refer to medication reconciliation sheet for a list of medications. Patient Condition at Discharge: Fair Plan - Discharge Summary Discharge Rx Participant: No New Discharge Prescriptions: New DAPTOmycin [Cubicin] 500 mg IVPB Q24H 10 Days vial Continue Methotrexate Sodium [Methotrexate] 20 mg PO DEVI Omeprazole [PriLOSEC] 20 mg PO AC-BID Metoprolol Succinate (ER) [Toprol XL] 50 mg PO DAILY Folic Acid 1 mg PO DAILY Famotidine [Pepcid] 40 mg PO BID EPINEPHrine [Epipen 2-Macario] 0.3 mg IM ONCE PRN PRN Reason: Anaphylaxis Montelukast [Singulair] 10 mg PO HS Albuterol Inhaler [Ventolin Hfa Inhaler] 1 - 2 puff INHALATION RT-Q6H PRN PRN Reason: Shortness Of Breath rOPINIRole HCL [Requip] 0.5 mg PO HS #30 tablet busPIRone HCL 15 mg PO TID #45 tablet Prazosin [Minipress] 1 mg PO HS #30 cap LORazepam [Ativan] 1 mg PO DAILY PRN PRN Reason: Anxiety Budesonide/Formoterol Fumarate [Symbicort 160-4.5 Mcg Inhaler] 2 puff INHALATION RT-BID metFORMIN HCL [Glucophage] 500 mg PO DAILY metFORMIN HCL [Glucophage] 1,000 mg PO HS Topiramate [Topamax] 100 mg PO BID Ergocalciferol (Vitamin D2) [Vitamin D2] 50,000 unit PO TH Vancomycin HCl 250 mg PO Q6H Clobetasol Propionate [Clobex [place] 0.05%] 1 spray TOPICAL BID Betamethasone Dipropionate [Diprolene AF 0.05% Cream] 1 applic TOPICAL BID lamoTRIgine [LaMICtal] 200 mg PO DAILY Ondansetron HCl [Zofran] 8 mg PO TID PRN PRN Reason: Nausea Butalb/APAP/Caff 50-325-40Mg [Fioricet 50-325-40] 1 tab PO Q4H PRN PRN Reason: Migraine Headache Discharge Medication List Albuterol Inhaler [Ventolin Hfa Inhaler] 1 - 2 puff INHALATION RT-Q6H PRN 11/06/17 [History] EPINEPHrine [Epipen 2-Macario] 0.3 mg IM ONCE PRN 11/06/17 [History] Famotidine [Pepcid] 40 mg PO BID 11/06/17 [History] Folic Acid 1 mg PO DAILY 11/06/17 [History] Methotrexate Sodium [Methotrexate] 20 mg PO DEVI 11/06/17 [History] Metoprolol Succinate (ER) [Toprol XL] 50 mg PO DAILY 11/06/17 [History] Montelukast [Singulair] 10 mg PO HS 11/06/17 [History] Omeprazole [PriLOSEC] 20 mg PO AC-BID 11/06/17 [History] Prazosin [Minipress] 1 mg PO HS #30 cap 11/13/17 [Rx] busPIRone HCL 15 mg PO TID #45 tablet 11/13/17 [Rx] rOPINIRole HCL [Requip] 0.5 mg PO HS #30 tablet 11/13/17 [Rx] Betamethasone Dipropionate [Diprolene AF 0.05% Cream] 1 applic TOPICAL BID 11/18/18 [History] Budesonide/Formoterol Fumarate [Symbicort 160-4.5 Mcg Inhaler] 2 puff INHALATION RT-BID 11/18/18 [History] Butalb/APAP/Caff 50-325-40Mg [Fioricet 50-325-40] 1 tab PO Q4H PRN 11/18/18 [History] Clobetasol Propionate [Clobex [place] 0.05%] 1 spray TOPICAL BID 11/18/18 [History] Ergocalciferol (Vitamin D2) [Vitamin D2] 50,000 unit PO TH 11/18/18 [History] LORazepam [Ativan] 1 mg PO DAILY PRN 11/18/18 [History] Ondansetron HCl [Zofran] 8 mg PO TID PRN 11/18/18 [History] Topiramate [Topamax] 100 mg PO BID 11/18/18 [History] Vancomycin HCl 250 mg PO Q6H 11/18/18 [History] lamoTRIgine [LaMICtal] 200 mg PO DAILY 11/18/18 [History] metFORMIN HCL [Glucophage] 1,000 mg PO HS 11/18/18 [History] metFORMIN HCL [Glucophage] 500 mg PO DAILY 11/18/18 [History] DAPTOmycin [Cubicin] 500 mg IVPB Q24H 10 Days vial 11/21/18 [Rx] Follow up Appointment(s)/Referral(s): [facility], [NON-STAFF] - Zari Mayorga MD [Primary Care Provider] - 1-2 days Yuni Little MD [STAFF PHYSICIAN] - 1 Week Savana Ricardo MD [STAFF PHYSICIAN] - 1 Week Activity/Diet/Wound Care/Special Instructions: Please arrive at [facility] starting tomorrow 11/21/18 at 1:00PM. Please go to the out patient department. Continue current diet activity limited until follow up Follow up with Dr. Ricardo this week Follow up with Dr. Little this week Continue to take the oral vanco for 4 more days to complete the 10 day course. Discharge Disposition: HOME WITH HOME HEALTH SERVICES
[2018-11-21 14:21] VITALS: BP 123/80; RESP 74; TEMP 98
[2018-11-21] MEDS: DAPTOmycin 500 MG in SODIUM CHLORIDE 0.9% 50 ML IVPB SCH (14:42)
--- NOTE | 2018-11-21 15:15 | PN ---
PROGRESS NOTE DATE OF SERVICE: 11/21/2018 REASON FOR FOLLOWUP: 1. Abdominal wall cellulitis. 2. C diff. colitis. INTERVAL HISTORY: The patient is currently afebrile. Patient has been breathing comfortably. Patient denies having any chest pain or shortness of breath or cough. The abdominal wall pain and redness has slightly decreased in intensity. PHYSICAL EXAMINATION: Blood pressure is 123/80 with a pulse of 74, temperature of 98, she is 97% on room air. General description is a middle-aged female, lying in bed in no distress. RESPIRATORY SYSTEM: Unlabored breathing, clear to auscultation anteriorly. HEART: S1, S2. Regular rate and rhythm. ABDOMEN: Soft. Abdominal wall redness is slightly decreased. Currently with no open wound or any drainage. LABS: Hemoglobin is 13.1, white count 7.7, BUN of 14, creatinine 0.90. DIAGNOSTIC IMPRESSION AND PLAN: 1. Patient with abdominal wall cellulitis. This patient did have multiple antibiotic allergies. Plan to finish therapy with daptomycin for another 10 days. 2. Patient with Clostridium difficile, stool for Clostridium difficile came back negative here. Advised to increase her probiotic and yogurt intake. Follow up in the office in 1 week. MMODL / IJN: [id number] /
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
[2018-11-22] MEDS ORDERED: ERGOCALCIFEROL 50,000 UNIT CAP PO SCH (09:00)
[2018-11-25] MEDS ORDERED: METHOTREXATE SODIUM 2.5 MG TAB PO SCH (09:00)
== END 2018-11-21 15:20 | disposition home or self-care (01) | DRG 603 ==
LOC: EC 13:26 → 4MS4W 16:18 → OBSVTOIN 11-20 10:36
PROVIDERS: ADMIT Hospitalist; ATTEND Hospitalist
PROC: 05HF33Z Insertion of Infusion Device into Left Cephalic Vein, Percutaneous Approach (ICD-10-PCS; principal; 2018-11-21 10:00)
DX: L03.311 Cellulitis of abdominal wall (principal); A04.71 Enterocolitis due to Clostridium difficile, recurrent; F31.30 Bipolar disorder, current episode depressed, mild or moderate severity, unspecified; L40.1 Generalized pustular psoriasis; E28.2 Polycystic ovarian syndrome; E66.9 Obesity, unspecified; F43.10 Post-traumatic stress disorder, unspecified; G25.81 Restless legs syndrome; J45.909 Unspecified asthma, uncomplicated; K21.9 Gastro-esophageal reflux disease without esophagitis; Z68.39 Body mass index [BMI] 39.0-39.9, adult; Z79.51 Long term (current) use of inhaled steroids; Z79.84 Long term (current) use of oral hypoglycemic drugs; Z79.899 Other long term (current) drug therapy; Z82.49 Family history of ischemic heart disease and other diseases of the circulatory system; Z82.5 Family history of asthma and other chronic lower respiratory diseases; Z88.1 Allergy status to other antibiotic agents; Z88.5 Allergy status to narcotic agent; Z91.040 Latex allergy status; M19.90 Unspecified osteoarthritis, unspecified site; Z90.49 Acquired absence of other specified parts of digestive tract; G43.909 Migraine, unspecified, not intractable, without status migrainosus; I49.9 Cardiac arrhythmia, unspecified; Z83.71 Family history of colonic polyps
CPT/HCPCS: 36410; 36415; 76937; 80048; 80053; 83735; 84100; 85025; 87040; 87324; 94640; 96361; 96374; 96375; 99284

== ENCOUNTER 2018-11-24 15:00 | Emergency (ER) | payer OTHER, MEDICARE ==
[2018-11-24 15:11] VITALS: RESP 18; TEMP 97.4
--- NOTE | 2018-11-24 15:34 | ED ---
Recheck HPI - General Chief Complaint: Recheck/Abnormal Lab/Rx Stated Complaint: Mid-line issues Time Seen by Provider: 11/24/18 15:12 Source: patient Mode of arrival: ambulatory Limitations: no limitations - History of Present Illness Initial Comments: Patient is a 43-year-old female presenting to emergency Department with complaints of pain above her midline x 1 day. Patient is currently receiving daptomycin through her midline once a day and is also on vancomycin for cellulitis of the abdomen. Patient was discharged from the hospital 3 days ago and had midline placed on that same day. Patient denies pain around her midline but states she is getting pain and swelling above her midline site on the left upper biceps area. Patient admits to having a fever yesterday but states she's been having a fever all along with the cellulitis issue. Patient states when she received the daptomycin today there was no pain but then after the line was flushed is when she began experiencing pain. Dr. Little is her infectious disease doctor. She has a follow-up appointment with him on Monday. - Related Data Home Medications Medication Instructions Recorded Confirmed Albuterol Inhaler [Ventolin Hfa 1 - 2 puff INHALATION RT-Q6H PRN 11/06/17 11/18/18 Inhaler] EPINEPHrine [Epipen 2-Macario] 0.3 mg IM ONCE PRN 11/06/17 11/18/18 Famotidine [Pepcid] 40 mg PO BID 11/06/17 11/18/18 Folic Acid 1 mg PO DAILY 11/06/17 11/18/18 Methotrexate Sodium [Methotrexate] 20 mg PO DEVI 11/06/17 11/18/18 Metoprolol Succinate (ER) [Toprol 50 mg PO DAILY 11/06/17 11/18/18 XL] Montelukast [Singulair] 10 mg PO HS 11/06/17 11/18/18 Omeprazole [PriLOSEC] 20 mg PO AC-BID 11/06/17 11/18/18 Betamethasone Dipropionate 1 applic TOPICAL BID 11/18/18 11/18/18 [Diprolene AF 0.05% Cream] Budesonide/Formoterol Fumarate 2 puff INHALATION RT-BID 11/18/18 11/18/18 [Symbicort 160-4.5 Mcg Inhaler] Butalb/APAP/Caff 50-325-40Mg 1 tab PO Q4H PRN 11/18/18 11/18/18 [Fioricet 50-325-40] Clobetasol Propionate [Clobex 1 spray TOPICAL BID 11/18/18 11/18/18 Braham 0.05%] Ergocalciferol (Vitamin D2) 50,000 unit PO TH 11/18/18 11/18/18 [Vitamin D2] LORazepam [Ativan] 1 mg PO DAILY PRN 11/18/18 11/18/18 Ondansetron HCl [Zofran] 8 mg PO TID PRN 11/18/18 11/18/18 Topiramate [Topamax] 100 mg PO BID 11/18/18 11/18/18 Vancomycin HCl 250 mg PO Q6H 11/18/18 11/18/18 lamoTRIgine [LaMICtal] 200 mg PO DAILY 11/18/18 11/18/18 metFORMIN HCL [Glucophage] 1,000 mg PO HS 11/18/18 11/18/18 metFORMIN HCL [Glucophage] 500 mg PO DAILY 11/18/18 11/18/18 Previous Rx's Medication Instructions Recorded Prazosin [Minipress] 1 mg PO HS #30 cap 11/13/17 busPIRone HCL 15 mg PO TID #45 tablet 11/13/17 rOPINIRole HCL [Requip] 0.5 mg PO HS #30 tablet 11/13/17 DAPTOmycin [Cubicin] 500 mg IVPB Q24H 10 Days vial 11/21/18 Allergies Allergy/AdvReac Type Severity Reaction Status Date / Time cephalexin [From Keflex] Allergy Rash/Hives Verified 11/24/18 15:04 codeine Allergy Rash/Hives Verified 11/24/18 15:04 kiwi Allergy Dyspnea Verified 11/24/18 15:04 latex Allergy Rash/Hives Verified 11/24/18 15:04 vancomycin [From Vancocin] Allergy Rash/Hives Verified 11/24/18 15:04 morphine AdvReac BP Verified 11/24/18 15:04 DECREASES Review of Systems ROS Statement: Those systems with pertinent positive or pertinent negative responses have been documented in the HPI. ROS Other: All systems not noted in ROS Statement are negative. Past Medical History Past Medical History: Asthma Additional Past Medical History / Comment(s): psoriasis History of Any Multi-Drug Resistant Organisms: None Reported, C-DIFF Date of last positivie culture/infection: 08/08/2012 MDRO Source:: Left ankle, (cdiff 11/15/18) Past Surgical History: Cholecystectomy, Orthopedic Surgery, Tonsillectomy Additional Past Surgical History / Comment(s): lap band placement and removal Past Anesthesia/Blood Transfusion Reactions: No Reported Reaction Past Psychological History: Anxiety, Bipolar, Depression Smoking Status: Never smoker Past Alcohol Use History: None Reported Past Drug Use History: Marijuana - Past Family History Mother Family Medical History: Asthma Additional Family Medical History / Comment(s): Heart defects Father Family Medical History: Asthma, Hypertension Additional Family Medical History / Comment(s): POlyps removed from colon, heart disease. General Exam - General Exam Comments Initial Comments: GENERAL: Well-appearing, well-nourished and in no acute distress. HEAD: Atraumatic, normocephalic. EYES: Pupils equal round and reactive to light, extraocular movements intact, sclera anicteric, conjunctiva are normal. ENT: TMs normal, nares patent, oropharynx clear without exudates. Moist mucous membranes. NECK: Normal range of motion, supple without lymphadenopathy or JVD. LUNGS: Breath sounds clear to auscultation bilaterally and equal. No wheezes rales or rhonchi. HEART: Regular rate and rhythm without murmurs, rubs or gallops. ABDOMEN: Abdominal cellulitis present, pain with palpation, warmth. (Patient is currently being treated for this.) normoactive bowel sounds. No guarding, no rebound. No masses appreciated. : Deferred EXTREMITIES: Normal range of motion, no pitting or edema. No clubbing or cyanosis. NEUROLOGICAL: Cranial nerves II through XII grossly intact. Normal speech, normal gait. PSYCH: Normal mood, normal affect. SKIN: Warm, Dry, normal turgor. Patient has a midline present in left antecubital, no signs of infection. Dressing is clean dry and intact. Patient has mild edema, small area of erythema and pain to palpation above the midline, proximal left bicep area. No warmth. Limitations: no limitations Course Vital Signs 11/24/18 11/24/18 15:05 17:50 Temperature 97.4 F L Pulse Rate 69 65 Respiratory 18 18 Rate Blood Pressure 123/65 O2 Sat by Pulse 100 97 Oximetry Medical Decision Making - Medical Decision Making 43-year-old female here for pain above her midline. Patient is currently being treated for abdominal cellulitis with daptomycin and vancomycin. Patient states she had her infusion today and with the saline flush she had some pain above her midline. On exam patient's midline area is clean and dry and intact, no signs of infection. Vital signs are stable, afebrile. About 4-5 inches above the midline is a small area of edema, erythema, pain with palpation. Ultrasound of the left arm reveals no evidence of DVT. There is some thrombus seen in the cephalic vein. Discussed with patient to use warm compresses and anti- inflammatories for relief of pain for superficial thrombophlebitis. Patient will follow-up with Dr. Little as discussed on Monday. Patient is stable for discharge at this time. Return parameters were discussed with patient she verbalized understanding. Case discussed with Dr. Elliott. Disposition Clinical Impression: Superficial thrombophlebitis Disposition: HOME SELF-CARE Condition: Stable Instructions (If sedation given, give patient instructions): Superficial Thrombophlebitis (ED) Additional Instructions: Please return to the Emergency Department if symptoms worsen or any other concerns. Follow-up with Dr. Little as discussed next week Is patient prescribed a controlled substance at d/c from ED?: No Referrals: Zari Mayorga MD [Primary Care Provider] - 1-2 days
--- NOTE | 2018-11-24 16:59 | US ---
EXAMINATION TYPE: US venous doppler duplex UE LT DATE OF EXAM: 11/24/2018 COMPARISON: NONE CLINICAL HISTORY: Pain. Recent midline IV placed in upper arm cephalic vein, unable to flush at [facility] today, pain with swollen tissue, no h/o dvt SIDE PERFORMED: Left Left Arm: Appears negative for DVT, could only do one image of brachial veins due to clear bandage ho lding midline IV in place in upper arm Cephalic vein proximal and distal to midline IV was patent, no flow seen along midline IV where vei n had internal echoes and was not compressible. IMPRESSION: No evidence of deep venous thrombosis in the left arm. There is some thrombus seen in the cephalic ve in.
[2018-11-24 17:52] VITALS: BP 123/65; PULSE 65
== END 2018-11-24 17:49 | disposition home or self-care (01) ==
LOC: EC 15:00
DX: I80.02 Phlebitis and thrombophlebitis of superficial vessels of left lower extremity (principal); J45.909 Unspecified asthma, uncomplicated; L03.311 Cellulitis of abdominal wall; L40.9 Psoriasis, unspecified; F41.9 Anxiety disorder, unspecified; F31.9 Bipolar disorder, unspecified; Z79.51 Long term (current) use of inhaled steroids; Z79.899 Other long term (current) drug therapy; Z88.1 Allergy status to other antibiotic agents; Z88.5 Allergy status to narcotic agent; Z91.018 Allergy to other foods; Z91.040 Latex allergy status
CPT/HCPCS: 99283

== ENCOUNTER → 2019-02-12 | Outpatient (CLI) | payer OTHER, MEDICARE ==
--- NOTE | 2019-02-12 18:44 | PN ---
PROGRESS NOTE This is a 43-year-old female patient who was referred to me for symptoms of chronic hypersomnia. The patient had an Meridian score of 15. The patient also has a history of chronic anxiety and bipolar disorder. She has chronic pain and peripheral neuropathy and restlessness in the lower extremities. Her sleep quality, as reported by the patient, was extremely poor. She was obese and there were features of obstructive sleep apnea. For that reason we proceeded initially with home sleep study testing. Note that her chronic comorbidities include diabetes, hypertension, migraine headaches, acid reflux and bronchial asthma. The home sleep study was completed on 01/21/2019 and the patient was not found to have any significant obstructive sleep apnea. The apnea-hypopnea index was 2.8. According to her, she thinks that she slept during the home sleep study; however, she is not certain. The home sleep study did not show any significant nocturnal oxygen desaturations. Based on that, the patient is coming in for further advice. I think it is very reasonable to consider this patient for a full polysomnogram as long as the patient remains quite somnolent and sleepy. REVIEW OF SYSTEMS: Fourteen-point review of systems was done. Positive findings were all mentioned above in the history of present illness. PHYSICAL EXAMINATION: VITAL SIGNS: BP is 116/74, pulse 72, respirations 18, temperature 97.7, saturation 98% on room air. Weight is 272. Meridian score is 17. GENERAL APPEARANCE: Calm, comfortable. Obese. HEAD: Atraumatic, normocephalic. NECK: Supple. There is no JVD. No goiter or neck mass. LUNGS: Clear to auscultation. HEART: Heart sounds are regular rate and rhythm. Normal S1, S2. No S3, S4. No murmurs. ABDOMEN: Soft, nontender. No organomegaly. EXTREMITIES: No edema. No cyanosis or clubbing. NEUROLOGIC: Alert and oriented x3. No focal neurological deficits. PSYCHIATRIC: Positive for anxiety and bipolar disorder. IMPRESSION: 1. Chronic hypersomnia with an Meridian score of 17. Home sleep study did not show any significant obstructive sleep apnea. The patient was identified to have primary snoring with an AHI of 2.8. There were no significant nocturnal oxygen desaturations. 2. Chronic anxiety/bipolar disorder. 3. Hypertension. 4. Obesity with a body mass index of 43. 5. Restless legs syndrome. 6. Migraines. 7. Acid reflux. 8. Diabetes mellitus. 9. Bronchial asthma. 10.History of psoriasis. 11.History of psoriatic arthritis. PLAN: Based on a negative home sleep study and based on the ongoing symptomatology related to hypersomnia, I think it is reasonable to do a polysomnogram. The patient has multiple comorbidities that contribute to chronic hypersomnia, and further characterization of her sleep architecture will be needed to explain her symptoms. I am also not absolutely convinced that the patient does not have sleep apnea. This remains a viable possibility, even with a negative home sleep study. For that reason, a full polysomnogram will be done and further recommendations are to follow accordingly. MMJOSHUAL / IJN: [id number] /
== END | disposition home or self-care (01) ==
LOC: SLEEP 13:59
PROVIDERS: ATTEND Internal Medicine Critical Care Medicine
DX: G47.19 Other hypersomnia (principal); F41.8 Other specified anxiety disorders; F31.9 Bipolar disorder, unspecified; I10 Essential (primary) hypertension; E66.9 Obesity, unspecified; Z68.41 Body mass index [BMI] 40.0-44.9, adult; G25.81 Restless legs syndrome; G43.909 Migraine, unspecified, not intractable, without status migrainosus; K21.9 Gastro-esophageal reflux disease without esophagitis; E11.9 Type 2 diabetes mellitus without complications; G62.9 Polyneuropathy, unspecified; J45.909 Unspecified asthma, uncomplicated; Z87.2 Personal history of diseases of the skin and subcutaneous tissue; Z87.39 Personal history of other diseases of the musculoskeletal system and connective tissue

== ENCOUNTER → 2019-05-01 | Day surgery (SDC) | payer OTHER, MEDICARE ==
[~2019-05-01] MED LIST: ALPRAZolam 0.5 MG TAB PO ONE; HYDROmorphone 0.5 MG/0.5 ML SYRINGE IVP STA
[2019-05-01 09:30] VITALS: RESP 14; TEMP 98.3
[2019-05-01 09:34] LABS: Platelet Count 189 k/uL (150-450)
[2019-05-01 09:40] LABS: Prothrombin Time 10.1 sec (9.0-12.0)
--- NOTE | 2019-05-01 12:42 | US ---
EXAMINATION TYPE: US biopsy liver DATE OF EXAM: 05/01/2019 HISTORY: Elevated liver function tests. PROCEDURE: Maximal barrier technique was utilized. After informed consent, the skin overlying a suit able path to the liver was localized using ultrasound, the skin was prepped and draped. Ultrasound w as utilized with sterile technique. Lidocaine was used for local anesthesia. A skin ethel made with a scalpel. Under direct ultrasound guidance, an 18-gauge needle was advanced into the left lobe of th e liver and core biopsy obtained. Hemostasis was achieved. There was no immediate complication and patient remained in stable condition. Specimen submitted in formalin to Pathology. IMPRESSION: STATUS POST ULTRASOUND GUIDED CORE BIOPSY OF THE LEFT LOBE OF THE LIVER, PATHOLOGY KVNG Lynn PERFORMED BY THE UNDERSIGNED.
[2019-05-01 13:38] VITALS: PULSE 58
[2019-05-01 13:54] VITALS: BP 110/62
== END ==
LOC: RADPROMAIN 08:59
PROVIDERS: ATTEND Internal Medicine Gastroenterology
DX: K76.0 Fatty (change of) liver, not elsewhere classified (principal); K75.9 Inflammatory liver disease, unspecified
CPT/HCPCS: 85049; 85610; 88313; 88307; 36415; 47000; 76942; J1170

== ENCOUNTER → 2019-05-08 | Outpatient (CLI) | payer OTHER, MEDICARE ==
[2019-05-09 01:21] LABS: Albumin 4.5 g/dL (3.80-4.90); Albumin/Globulin Ratio 2.5 (1.60-3.17); Bilirubin, Conjugated 0.2 mg/dL (0.20-0.40); Bilirubin,Unconjugated 0.4 mg/dL; Globulin 1.8 g/dL (1.6-3.3); Total Bilirubin 0.6 mg/dL (0.2-1.2); Total Protein 6.3 g/dL (6.2-8.2)
== END | disposition home or self-care (01) ==
LOC: LABWHC1 14:21
PROVIDERS: ATTEND Dermatology
DX: L40.0 Psoriasis vulgaris (principal); Z79.899 Other long term (current) drug therapy
CPT/HCPCS: 36415; 80076

== ENCOUNTER 2019-05-22 06:25 | Day surgery (SDC) | payer OTHER, MEDICARE ==
[2019-05-21 10:34] VITALS: BMI 42.0
[2019-05-22] MEDS ORDERED: SODIUM CHLORIDE 0.9% 1,000 ML IV ONE (06:30)
[2019-05-22] MEDS ORDERED: SODIUM CHLORIDE 0.9% 1,000 ML in EMPTY BAG 1 BAG IV ONE (06:32)
[2019-05-22] MEDS ORDERED: ATORVASTATIN 80 MG TAB PO STA (06:32)
[2019-05-22] MEDS ORDERED: ASPIRIN 325 MG TAB PO STA (06:32)
[2019-05-22] MEDS ORDERED: ALPRAZolam 0.5 MG TAB PO PRN (06:32)
[2019-05-22] MEDS ORDERED: NITROGLYCERIN SL TABS 0.4 MG TAB SUBLINGUAL PRN (06:32)
[2019-05-22] MEDS ORDERED: ALPRAZolam 0.25 MG TAB PO PRN (06:32)
[2019-05-22 07:10] LABS: Glucose,Whole Blood 111 mg/dL (75-99)
[2019-05-22 07:18] LABS: Calcium 8.9 mg/dL (8.4-10.2); Potassium 4.2 mmol/L (3.5-5.1)
[2019-05-22 07:19] VITALS: RESP 16; TEMP 97.8
[2019-05-22] MEDS ORDERED: VERAPAMIL 2.5 MG/ML 2 ML AMP ONE (07:25)
[2019-05-22] MEDS ORDERED: HEPARIN SODIUM 1,000 UN/ML (10ML VL) ONE (07:25)
[2019-05-22] MEDS ORDERED: fentaNYL (PF) 50 MCG/ML 2 ML AMP ONE (07:25)
[2019-05-22] MEDS ORDERED: LIDOCAINE 1% INJ 10MG/ML (20 ML MDV) ONE (07:25)
[2019-05-22 07:34] LABS: Basophils % (A) 1 %; Eosinophils # (A) 0.2 k/uL (0-0.7); Eosinophils % (A) 4 %; HGB 13.8 gm/dL (11.4-16.0); Lymphocytes # (A) 1.2 k/uL (1.0-4.8); Lymphocytes % (A) 25 %; MCH 29.6 pg (25.0-35.0); MCHC 32.2 g/dL (31.0-37.0); MCV 91.9 fL (80.0-100.0); Mean Platelet Volume 8.3; Monocytes # (A) 0.2 k/uL (0-1.0); Monocytes % (A) 4 %; Neutrophils # (A) 3.1 k/uL (1.3-7.7); Neutrophils % (A) 64 %; Platelet Count 175 k/uL (150-450); RBC 4.67 m/uL (3.80-5.40); RDW 13.9 % (11.5-15.5); WBC 4.9 k/uL (3.8-10.6)
[2019-05-22] MEDS: fentaNYL (PF) 50 MCG/ML 2 ML AMP IV ONE ×2 (07:39→07:58)
[2019-05-22] MEDS ORDERED: MIDAZOLAM 2 MG/2 ML VIAL IV ONE ×2 (07:39)
[2019-05-22] MEDS: LIDOCAINE 1% INJ 10MG/ML (20 ML MDV) SQ ONE ×2 (07:42→07:53)
[2019-05-22] MEDS ORDERED: RX INFO: IV CONTRAST WAS GIVEN 1 EACH MISC MISCELLANE PRN (08:15)
[2019-05-22] MEDS ORDERED: SODIUM CHLORIDE 0.9% 1,000 ML IV SCH (08:15)
--- NOTE | 2019-05-22 08:22 | P.CARDCATH ---
Date of Procedure: 05/22/19 Preoperative Diagnosis: Chest pains and positive stress test with possible ischemia of the lateral wall Postoperative Diagnosis: Normal coronary arteries Procedure(s) Performed: Left heart catheterization without left ventriculography Description of Procedure: HISTORY: This is a 43-year-old female with family history of ischemic heart disease who has been experiencing chest pains. A nuclear stress test showed possible ischemia of the lateral wall, though artifact related to soft tissue attenuation could not be completely excluded. The patient was advised to have further evaluation either by dobutamine echo or cardiac catheterization. Patient preferred to have a cardiac catheterization. CONSENT:I have discussed the risks, benefits and alternative therapies for the above-mentioned procedure and for both sedation/analgesia as well as necessary blood product administration, if indicated, as they pertain to this patient. The patient has indicated understanding and acceptance of the risks and procedures discussed. PROCEDURE: Patient was brought to the lab in a fasting state. Attempts were made to do catheterization from the right radial approach. Radial artery could be entered but white could not be advanced. The procedure was abandoned and was done from the right groin approach. Patient was given some IV sedation. The right groin is infiltrated with lidocaine and right femoral artery was entered using Seldinger technique. A 6-Nepali catheter was left in place and selective coronary arteriography and left ventriculography was performed. Patient tolerated the procedure well. Femoral angiogram was performed and Angio-Seal was applied for hemostasis. No immediate complications were noted and patient was transferred to [facility] in a stable condition Conscious Sedation: Versed 2mg Fentanyl 50 g Duration 27minutes HEMODYNAMICS: The aortic pressure is about 110/70. Left ankle end-diastolic pressure is about 12 to15. There was no gradient across the aortic valve SELECTIVE CORONARY ARTERIOGRAPHY: LEFT MAIN: Normal length and free of any occlusive disease THE LEFT ANTERIOR DESCENDING CORONARY ARTERY:. I'll caliber vessel giving rise to small septal and diagonal branches. It is free of any occlusive disease THE LEFT CIRCUMFLEX AND IS CORONARY ARTERY:. Caliber vessel and codominant and free of occlusive disease THE RIGHT CORONARY ARTERY:. Dominant vessel. Free of occlusive disease LEFT VENTRICULOGRAPHY:. Not performed FINAL IMPRESSION: Normal coronary arteries and mildly elevated end-diastolic pressure PLAN: Maximum medical therapy and this factor modification PROGNOSIS: Good
[2019-05-22] MEDS ORDERED: IOPAMIDOL-370 125ML BTL INJ ONE (09:44)
[2019-05-22 13:49] VITALS: BP 110/67; PULSE 82
== END 2019-05-22 13:49 | disposition home or self-care (01) ==
LOC: CATHCVL 06:25
PROVIDERS: ATTEND Internal Medicine Cardiovascular Disease
DX: R07.9 Chest pain, unspecified (principal); R94.39 Abnormal result of other cardiovascular function study; E78.5 Hyperlipidemia, unspecified; E78.00 Pure hypercholesterolemia, unspecified; Z82.49 Family history of ischemic heart disease and other diseases of the circulatory system; M19.90 Unspecified osteoarthritis, unspecified site; E28.2 Polycystic ovarian syndrome; I25.9 Chronic ischemic heart disease, unspecified; K27.9 Peptic ulcer, site unspecified, unspecified as acute or chronic, without hemorrhage or perforation; Z79.84 Long term (current) use of oral hypoglycemic drugs; Z79.51 Long term (current) use of inhaled steroids; Z79.899 Other long term (current) drug therapy; Z88.1 Allergy status to other antibiotic agents; Z88.5 Allergy status to narcotic agent; Z88.8 Allergy status to other drugs, medicaments and biological substances
CPT/HCPCS: 93458; 80048; 85025; C1760; C1894 ×2; C1769 ×3; J2250; J2001; J3010; Q9967

== ENCOUNTER 2019-09-26 07:12 | Day surgery (SDC) | payer OTHER, MEDICARE ==
[2019-09-25 10:09] VITALS: BMI 42.0
[~2019-09-26 07:12] MED LIST changes: -ALPRAZolam 0.5 MG TAB PO ONE; -HYDROmorphone 0.5 MG/0.5 ML SYRINGE IVP STA; +LACTATED RINGERS 1,000 ML IV SCH
[2019-09-26 07:39] VITALS: TEMP 98.4
[2019-09-26] MEDS ORDERED: ONDANSETRON 4 MG/2 ML VIAL IVP ONE (07:56)
[2019-09-26] MEDS ORDERED: LIDOCAINE 1% (10MG/ML) FOR IV START INTRADERMA ONE (07:59)
[2019-09-26] MEDS ORDERED: LIDOCAINE 1% INJ 10MG/ML (20 ML MDV) ONE (08:03)
[2019-09-26] MEDS ORDERED: fentaNYL (PF) 50 MCG/ML 2 ML AMP ONE (08:03)
[2019-09-26] MEDS ORDERED: MIDAZOLAM 2 MG/2 ML VIAL ONE (08:03)
[2019-09-26] MEDS ORDERED: IV FLUID CONTINUATION 1,000 ML IV ONE (08:46)
--- NOTE | 2019-09-26 08:47 | P.PCN ---
Date of Procedure: 09/26/19 Procedure(s) Performed: Preoperative diagnosis: Suspected pseudotumor cerebri Post operative diagnoses: Same Anesthesia local infiltration with lidocaine 1% 2 mL., [moderate sedation with fentanyl and Versed], sedation time 36 minutes Condition: stable Complication: none. Fluoroscopy was used for the procedure and fluoroscopic images saved to the patient's chart in the radiology portion. Description of the procedure procedure risk and benefits discussed with the patient and family, consent signed. Patient was taken to the procedure area placed in left lateral position. Local infiltration of the skin and subcutaneous tissue with lidocaine 1%. A 22-gauge 5" Quincke-type needle advanced slowly at L3-4 interlaminar space.opening pressure was measured at 26 cm of water. A total of 8 ML of clear cerebrospinal fluid was drained. Then, the needle was removed and a Band-Aid applied and patient tolerated the procedure well without any complications. Initial 2 attempts were not fluoroscopic guided, however I could not enter the Intrathecal space, with fluoroscopy guidance I was able to enter the intrathecal space.
[2019-09-26 09:52] VITALS: BP 121/73; PULSE 78; RESP 18
--- NOTE | 2019-09-26 12:08 | FL ---
Fluoroscopy HISTORY: Lumbar puncture with opening pressure 6 seconds fluoroscopy time supplied to the referring clinician. 1 intraoperative C-arm images docume nt the procedure. See dictated report from anesthesia.
== END 2019-09-26 10:47 | disposition home or self-care (01) ==
LOC: ORPAIN 07:12
PROVIDERS: ATTEND Anesthesiology
DX: G93.2 Benign intracranial hypertension (principal); Z78.0 Asymptomatic menopausal state; Z91.09 Other allergy status, other than to drugs and biological substances
CPT/HCPCS: 62328; J2250; J2405; J2001; J3010; 62270; 62272; 99152; 99153

== ENCOUNTER → 2019-11-13 | Outpatient (CLI) | payer OTHER, MEDICARE ==
[2019-11-13 15:59] VITALS: BP 129/85; PULSE 77; RESP 16; TEMP 98.2; BMI 52.4
--- NOTE | 2019-11-13 16:40 | P.HPBAR ---
Bariatric H&P - History & Physicial H&P Date: 11/13/19 History & Physicial: Visit/CC: Initial Visit Patient initial contact: Initial weight: 121.676 kg Initial weight in pounds: 268.25 Height: 5 ft Initial BMI: 52.4 Last weight: Current weight: 121.676 kg Current weight in pounds: 268.25 Current BMI: 52.4 [place] body weight (based on NIH guidelines): 45.359 kg Excess body weight loss: 0.0% The patient is a 44 year-old F who presents for Bariatric Assessment. She is looking into the sleeve. She had a lap band before. She had a band 10 years ago with removal 8 years ago. She had intolerance to her band. Her surgeries were done in [place]. Her highest weight was 292 pounds. Lowest weight 220 pounds. She has GERD controlled with Pepcid and Omeprazole. She had an upper scope in the past 1 [address] Saxena in [place]. She does not have her gallbladder. No family history of stomach or esophageal cancer. She is not aware of a hiatal hernia. She had 3 sections and 10 ankle surgeries. She has tried Weight watchers several times and at [facility] for weight maintenance. No sleep apnea. No medications for hypertension. No diabetes. She has family history of weight problems in mom, dad, and brother. She has back pain, bilateral hips and knee pain right is worse than the left. No easy bruising. NO DVTs. She has intolerance to lovenox. She can tolerate heparin. Past Medical History Past Medical History: Asthma, Chest Pain / Angina, GERD/Reflux, Liver Disease, Skin Disorder Additional Past Medical History / Comment(s): psoriasis, rapid heart beat, restless legs syndrome, polycystic ovarian syndrome, elevated liver enzymes, chronic nausea,MIGRAINE HEADACHE History of Any Multi-Drug Resistant Organisms: MRSA Year Discovered:: 2012 MDRO Source:: LEFT ANKLE 2013 Past Surgical History: Cholecystectomy, Orthopedic Surgery, Tonsillectomy, Tubal Ligation, Uterine Ablation Additional Past Surgical History / Comment(s): lap band placement and removal, 10 left ankle surgeries including fusion, x3, recent liver biopsy Past Anesthesia/Blood Transfusion Reactions: No Reported Reaction Additional Past Anesthesia/Blood Transfusion Reaction / Comm: no previous blood transfusion Past Psychological History: Anxiety, Bipolar, Depression Smoking Status: Unknown if ever smoked Past Alcohol Use History: Occasional Past Drug Use History: Marijuana Additional Drug Use History / Comment(s): daily OR LESS - Past Family History Mother Family Medical History: Asthma Additional Family Medical History / Comment(s): Heart defect Father Family Medical History: Asthma, Hypertension Additional Family Medical History / Comment(s): , heart disease. Surgical - Exam Vital Signs Temp Pulse Resp BP 98.2 F 77 16 129/85 11/13/19 15:55 11/13/19 15:55 11/13/19 15:55 11/13/19 15:55 Bariatric Checklist Checklist: Plan: Checklist: EGD: 1. Hiatal hernia: 2. H. Pylori: HgbA1c: Vitamin D: Smoking: Never smoker Primary care physician referral: [facility] Psychiatry clearance: Cardiology clearance: Sleep study: Diet journal: VTE risk score: VTE risk level: Rehab needs at discharge:
== END | disposition home or self-care (01) ==
LOC: BARWHC3 14:56
PROVIDERS: ATTEND Surgery Plastic and Reconstructive Surgery
DX: Z46.51 Encounter for fitting and adjustment of gastric lap band (principal); Z90.49 Acquired absence of other specified parts of digestive tract; Z98.890 Other specified postprocedural states; Z98.51 Tubal ligation status
CPT/HCPCS: 99211

== ENCOUNTER → 2019-12-06 | Outpatient (CLI) | payer OTHER, MEDICARE ==
--- NOTE | 2019-12-06 13:01 | FL ---
EXAMINATION TYPE: FL barium swallow DATE OF EXAM: 12/06/2019 LIMITED ESOPHAGRAM: CLINICAL HISTORY: Difficulty swallowing since lap band removal TECHNIQUE: Limited esophagram is performed utilizing Omnipaque 350. A total of 56 seconds of fluoros copic time was utilized during procedure. Images: 18 FINDINGS: The patient swallowed contrast without difficulty or delay. Some mild presbyesophagus was present. Contrast passes to the gastroesophageal junction normally. IMPRESSION: 1. Presbyesophagus. 2. No suspicious stenosis
== END | disposition home or self-care (01) ==
LOC: RADUSWWP 11:32
PROVIDERS: ATTEND Surgery Plastic and Reconstructive Surgery
DX: K22.8 Other specified diseases of esophagus (principal)
CPT/HCPCS: 74220

== ENCOUNTER 2020-01-08 08:56 | Day surgery (SDC) | payer OTHER, MEDICARE ==
[2020-01-02 14:47] VITALS: BMI 42.0
[~2020-01-08 08:56] MED LIST changes: +LIDOCAINE 1% (10MG/ML) FOR IV START INTRADERMA PRN
[2020-01-08 09:19] VITALS: RESP 16; TEMP 96.8
--- NOTE | 2020-01-08 09:47 | P.GSHP ---
History of Present Illness H&P Date: 01/08/20 CHIEF COMPLAINT: GERD HISTORY OF PRESENT ILLNESS: The patient is a 44-year-old female who presents reports gastroesophageal reflux disease. Upper endoscopy was offered for further evaluation and management. PAST MEDICAL HISTORY: Please see list. PAST SURGICAL HISTORY: Please see list. MEDICATIONS: Please see list. ALLERGIES: Please see list. SOCIAL HISTORY: No illicit drug use FAMILY HISTORY: No reports of Crohn disease or ulcerative colitis. REVIEW OF ORGAN SYSTEMS: CONSTITUTIONAL: No reports of fevers or chills. GI: Denies any blood in stools or constipation. PHYSICAL EXAM: VITAL SIGNS: Stable GENERAL: Well-developed and pleasant in no acute distress. HEENT: No scleral icterus. Extraocular movements grossly intact. Moist buccal mucosa. NECK: Supple without lymphadenopathy. CHEST: Unlabored respirations. Equal bilateral excursions. CARDIOVASCULAR: Regular rate and rhythm. Distal 2+ pulses. ABDOMEN: Soft, nondistended. MUSCULOSKELETAL: No clubbing, cyanosis, or edema. ASSESSMENT: 1. Gastroesophageal reflux disease PLAN: 1. Recommend proceeding with an upper endoscopy Past Medical History Past Medical History: Asthma, Chest Pain / Angina, GERD/Reflux, Liver Disease, Skin Disorder Additional Past Medical History / Comment(s): psoriasis, rapid heart beat, restless legs syndrome, polycystic ovarian syndrome, elevated liver enzymes, chronic nausea,MIGRAINE HEADACHE History of Any Multi-Drug Resistant Organisms: MRSA Date of last positivie culture/infection: 2012 MDRO Source:: LEFT ANKLE 2012 Past Surgical History: Cholecystectomy, Orthopedic Surgery, Tonsillectomy, Tubal Ligation, Uterine Ablation Additional Past Surgical History / Comment(s): lap band placement and removal, 10 left ankle surgeries including fusion, x3, recent liver biopsy Past Anesthesia/Blood Transfusion Reactions: No Reported Reaction Additional Past Anesthesia/Blood Transfusion Reaction / Comment(s): no previous blood transfusion Smoking Status: Never smoker - Past Family History Mother Family Medical History: Asthma Additional Family Medical History / Comment(s): Heart defect Father Family Medical History: Asthma, Hypertension Additional Family Medical History / Comment(s): , heart disease. Medications and Allergies Home Medications Medication Instructions Recorded Confirmed Type Albuterol Inhaler (Mhu) [Ventolin 1 - 2 puff INHALATION RT-Q6H PRN 11/06/17 01/02/20 History Hfa Inhaler (Mhu)] EPINEPHrine [Epipen 2-Macario] 0.3 mg IM ONCE PRN 11/06/17 01/02/20 History Famotidine [Pepcid] 40 mg PO BID 11/06/17 01/08/20 History Folic Acid 1 mg PO DAILY 11/06/17 01/08/20 History Metoprolol Succinate (ER) [Toprol 50 mg PO DAILY 11/06/17 01/08/20 History XL] Montelukast [Singulair] 10 mg PO HS 11/06/17 01/08/20 History Omeprazole [PriLOSEC] 20 mg PO AC-BID 11/06/17 01/08/20 History metHOTREXate sodium [Methotrexate] 25 mg PO DEVI 11/06/17 01/08/20 History Budesonide/Formoterol Fumarate 2 puff INHALATION RT-BID 11/18/18 01/02/20 History [Symbicort 160-4.5 Mcg Inhaler] LORazepam [Ativan] 1 mg PO DAILY PRN 11/18/18 01/02/20 History Ondansetron HCl [Zofran] 8 mg PO TID PRN 11/18/18 01/02/20 History metFORMIN HCL [Glucophage] 1,000 mg PO HS 11/18/18 01/08/20 History metFORMIN HCL [Glucophage] 500 mg PO DAILY 11/18/18 01/02/20 History Cariprazine HCl [Vraylar] 3 mg PO DAILY 04/22/19 01/08/20 History Prazosin [Minipress] 2 mg PO HS 04/22/19 01/08/20 History Promethazine [Phenergan] 12.5 mg PO Q8HR PRN 04/22/19 01/02/20 History lamoTRIgine [LaMICtal] 300 mg PO HS 04/22/19 01/08/20 History rOPINIRole HCL [Requip] 1.25 mg PO HS 04/22/19 01/08/20 History hydrOXYzine pamoate [Vistaril] 50 mg PO HS 05/21/19 01/08/20 History acetaZOLAMIDE [Diamox] 500 mg PO BID 11/14/19 01/08/20 History Desvenlafaxine Succinate [Pristiq 25 mg PO DAILY 01/02/20 01/08/20 History ER] Allergies Allergy/AdvReac Type Severity Reaction Status Date / Time cephalexin [From Keflex] Allergy Rash/Hives Verified 01/08/20 09:24 codeine Allergy Rash/Hives Verified 01/08/20 09:24 enoxaparin [From Lovenox] Allergy Dyspnea Verified 01/08/20 09:24 kiwi Allergy Dyspnea Verified 01/08/20 09:24 latex Allergy Rash/Hives, Verified 01/08/20 09:24 SWELLING vancomycin [From Vancocin] Allergy Rash/Hives Verified 01/08/20 09:24 morphine AdvReac LOW BLOOD Verified 01/08/20 09:24 PRESSURE Surgical - Exam Vital Signs Temp Pulse Resp BP Pulse Ox 96.8 F L 71 16 123/66 98 01/08/20 09:17 01/08/20 09:17 01/08/20 09:17 01/08/20 09:17 01/08/20 09:17
[2020-01-08] MEDS ORDERED: LIDOCAINE 1% INJ 10MG/ML (20 ML MDV) ONE (09:55)
[2020-01-08] MEDS ORDERED: PROPOFOL 10 MG/ML 20 ML VIAL IV ONE (09:55)
--- NOTE | 2020-01-08 10:14 | P.PCN ---
Date of Procedure: 01/08/20 Description of Procedure: PREOPERATIVE DIAGNOSIS: Gastroesophageal reflux disease. Morbid obesity. POSTOPERATIVE DIAGNOSIS: Morbid obesity. Gastritis. Gastroesophageal reflux disease. OPERATION: Esophagogastroduodenoscopy with biopsies along antrum. SURGEON: Kathryn Ang MD ANESTHESIA: MAC. INDICATIONS: The patient is a 44-year-old female who presents with a history of reflux disease. Benefits and risks of the procedure were described. Informed consent was obtained. DESCRIPTION: The patient was brought into the endoscopy suite and laid in the left lateral decubitus position. An Olympus gastroscope was passed along the posterior oropharynx down to the distal esophagus where the squamocolumnar junction was encountered at 40 cm from the incisors. The stomach was entered and no bile reflux was found. Additional findings are listed below. Biopsies with cold forceps were obtained of the antrum. The first through third portion of the duodenum was examined and unremarkable. Retroflexion of the scope confirmed Hill grade 2 lower esophageal valve. The squamocolumnar junction demonstrated LA grade B erosive esophagitis. The stomach was desufflated. The patient tolerated the procedure well. FINDINGS: Squamocolumnar junction 40 cm from the incisors. Diaphragmatic hiatus at 40 cm. Hill grade 2 lower esophageal valve. LA grade B erosive esophagitis. No active duodenitis. Chronic gastritis RECOMMENDATIONS: Upper endoscopy as needed. Plan - Discharge Summary Discharge Rx Participant: No New Discharge Prescriptions: Continue metHOTREXate sodium [Methotrexate] 25 mg PO DEVI Omeprazole [PriLOSEC] 20 mg PO AC-BID Metoprolol Succinate (ER) [Toprol XL] 50 mg PO DAILY Folic Acid 1 mg PO DAILY Famotidine [Pepcid] 40 mg PO BID EPINEPHrine [Epipen 2-Macario] 0.3 mg IM ONCE PRN PRN Reason: Anaphylaxis Montelukast [Singulair] 10 mg PO HS Albuterol Inhaler (Mhu) [Ventolin Hfa Inhaler (Mhu)] 1 - 2 puff INHALATION RT-Q6H PRN PRN Reason: Shortness Of Breath LORazepam [Ativan] 1 mg PO DAILY PRN PRN Reason: Anxiety Budesonide/Formoterol Fumarate [Symbicort 160-4.5 Mcg Inhaler] 2 puff INHALATION RT-BID metFORMIN HCL [Glucophage] 500 mg PO DAILY metFORMIN HCL [Glucophage] 1,000 mg PO HS Ondansetron HCl [Zofran] 8 mg PO TID PRN PRN Reason: Nausea Cariprazine HCl [Vraylar] 3 mg PO DAILY Promethazine [Phenergan] 12.5 mg PO Q8HR PRN PRN Reason: Nausea And Vomiting lamoTRIgine [LaMICtal] 300 mg PO HS Prazosin [Minipress] 2 mg PO HS rOPINIRole HCL [Requip] 1.25 mg PO HS hydrOXYzine pamoate [Vistaril] 50 mg PO HS acetaZOLAMIDE [Diamox] 500 mg PO BID Desvenlafaxine Succinate [Pristiq] 25 mg PO DAILY Discharge Medication List Albuterol Inhaler (Mhu) [Ventolin Hfa Inhaler (Mhu)] 1 - 2 puff INHALATION RT- Q6H PRN 11/06/17 [History] EPINEPHrine [Epipen 2-Macario] 0.3 mg IM ONCE PRN 11/06/17 [History] Famotidine [Pepcid] 40 mg PO BID 11/06/17 [History] Folic Acid 1 mg PO DAILY 11/06/17 [History] Metoprolol Succinate (ER) [Toprol XL] 50 mg PO DAILY 11/06/17 [History] Montelukast [Singulair] 10 mg PO HS 11/06/17 [History] Omeprazole [PriLOSEC] 20 mg PO AC-BID 11/06/17 [History] metHOTREXate sodium [Methotrexate] 25 mg PO DEVI 11/06/17 [History] Budesonide/Formoterol Fumarate [Symbicort 160-4.5 Mcg Inhaler] 2 puff INHALATION RT-BID 11/18/18 [History] LORazepam [Ativan] 1 mg PO DAILY PRN 11/18/18 [History] Ondansetron HCl [Zofran] 8 mg PO TID PRN 11/18/18 [History] metFORMIN HCL [Glucophage] 1,000 mg PO HS 11/18/18 [History] metFORMIN HCL [Glucophage] 500 mg PO DAILY 11/18/18 [History] Cariprazine HCl [Vraylar] 3 mg PO DAILY 04/22/19 [History] Prazosin [Minipress] 2 mg PO HS 04/22/19 [History] Promethazine [Phenergan] 12.5 mg PO Q8HR PRN 04/22/19 [History] lamoTRIgine [LaMICtal] 300 mg PO HS 04/22/19 [History] rOPINIRole HCL [Requip] 1.25 mg PO HS 04/22/19 [History] hydrOXYzine pamoate [Vistaril] 50 mg PO HS 05/21/19 [History] acetaZOLAMIDE [Diamox] 500 mg PO BID 11/14/19 [History] Desvenlafaxine Succinate [Pristiq] 25 mg PO DAILY 01/02/20 [History] [facility] [facility] [place] [place] [facility] [place] [facility] Patient Instructions/Handouts: Gastritis (DC) Discharge Disposition: HOME SELF-CARE
[2020-01-08 10:32] VITALS: BP 125/64; PULSE 70
== END 2020-01-08 11:01 | disposition home or self-care (01) ==
LOC: ORWHC2ENDO 08:56
PROVIDERS: ATTEND Surgery Plastic and Reconstructive Surgery
DX: K29.50 Unspecified chronic gastritis without bleeding (principal); K21.0 Gastro-esophageal reflux disease with esophagitis; K22.10 Ulcer of esophagus without bleeding; E66.01 Morbid (severe) obesity due to excess calories; I10 Essential (primary) hypertension; J45.909 Unspecified asthma, uncomplicated; E11.9 Type 2 diabetes mellitus without complications; E28.2 Polycystic ovarian syndrome; G25.81 Restless legs syndrome; F41.9 Anxiety disorder, unspecified; F31.9 Bipolar disorder, unspecified; L40.9 Psoriasis, unspecified; G43.909 Migraine, unspecified, not intractable, without status migrainosus; Z79.84 Long term (current) use of oral hypoglycemic drugs; Z79.51 Long term (current) use of inhaled steroids; Z79.899 Other long term (current) drug therapy; Z88.1 Allergy status to other antibiotic agents; Z88.5 Allergy status to narcotic agent; Z91.040 Latex allergy status; Z86.19 Personal history of other infectious and parasitic diseases; Z98.891 History of uterine scar from previous surgery; Z98.51 Tubal ligation status; Z90.49 Acquired absence of other specified parts of digestive tract; Z98.890 Other specified postprocedural states; Z86.14 Personal history of Methicillin resistant Staphylococcus aureus infection; Z82.5 Family history of asthma and other chronic lower respiratory diseases; Z82.49 Family history of ischemic heart disease and other diseases of the circulatory system; Z68.41 Body mass index [BMI] 40.0-44.9, adult
CPT/HCPCS: 81025; 88305; 43239; J2001; J2704

== ENCOUNTER → 2020-02-12 | Outpatient (CLI) | payer OTHER, MEDICARE ==
[2020-02-12 13:11] VITALS: BP 111/72; PULSE 72; TEMP 98; BMI 40.8
--- NOTE | 2020-02-12 13:31 | P.PN ---
Subjective Progress Note Date: 02/12/20 DATE OF SERVICE: 02/12/2020 CHIEF COMPLAINT: Morbid obesity. HISTORY OF PRESENT ILLNESS: Morena Castro is a 44-year-old female who comes with lifelong morbid obesity. She has history of adjustable gastric band. She completed upper endoscopy. She is looking into the sleeve gastrectomy. She reports intermittent troubles with swallowing. At height of 5 feet 0 inches, her ideal body weight is 127 pounds. Her highest weight was 292 pounds, BMI 57.1. She comes in 268 pounds unchanged from 3 months ago. Her body mass index is 52.4. She is 141 pounds overweight. PAST MEDICAL HISTORY: 1. Morbid obesity due to excess calories 2. Body mass index of 57.1, initial 3. Gastroesophageal reflux disease 4. Osteoarthritis of the lower back 5. Osteoarthritis bilateral hips 6. Osteoarthritis bilateral knees 7. Asthma 8. Hypertensive heart disease 9. Rheumatoid arthritis 10. Anxiety 11. Diabetes type II, non-insulin dependent 12. Bipolar disorder 13. Seizure disorder 14. Restless leg syndrome 15. History of MRSA 16. Generalized anxiety disorder 17. Depressive disorder PAST SURGICAL HISTORY: 1. Lap band surgery, 2009 2. Removal of lap band, 2011 3. Upper endoscopy 4. Cholecystectomy 5. C-sections x 3 6. Ankle surgeries x 10 7. Tonsillectomy 8. Tubal ligation 9. Uterine ablation 10. Liver biopsy HOME MEDICATIONS: Home Medications Medication Instructions Recorded Confirmed Albuterol Inhaler (Mhu) [Ventolin 1 - 2 puff INHALATION RT-Q6H PRN 11/06/17 11/14/19 Hfa Inhaler (Mhu)] EPINEPHrine [Epipen 2-Macario] 0.3 mg IM ONCE PRN 11/06/17 11/14/19 Famotidine [Pepcid] 40 mg PO BID 11/06/17 11/14/19 Folic Acid 1 mg PO DAILY 11/06/17 11/14/19 Metoprolol Succinate (ER) [Toprol 50 mg PO DAILY 11/06/17 11/14/19 XL] Montelukast [Singulair] 10 mg PO HS 11/06/17 11/14/19 Omeprazole [PriLOSEC] 20 mg PO AC-BID 11/06/17 11/14/19 metHOTREXate sodium [Methotrexate] 25 mg PO DEVI 11/06/17 11/14/19 Budesonide/Formoterol Fumarate 2 puff INHALATION RT-BID 11/18/18 11/14/19 [Symbicort 160-4.5 Mcg Inhaler] LORazepam [Ativan] 1 mg PO DAILY PRN 11/18/18 11/14/19 Ondansetron HCl [Zofran] 8 mg PO TID PRN 11/18/18 11/14/19 metFORMIN HCL [Glucophage] 1,000 mg PO HS 11/18/18 11/14/19 metFORMIN HCL [Glucophage] 500 mg PO DAILY 11/18/18 11/14/19 Cariprazine HCl [Vraylar] 3 mg PO DAILY 04/22/19 11/14/19 Prazosin [Minipress] 2 mg PO HS 04/22/19 11/14/19 Promethazine [Phenergan] 12.5 mg PO Q8HR PRN 04/22/19 11/14/19 Vilazodone HCl [Viibryd] 40 mg PO DAILY 04/22/19 11/14/19 lamoTRIgine [LaMICtal] 300 mg PO HS 04/22/19 11/14/19 rOPINIRole HCL [Requip] 1.25 mg PO HS 04/22/19 11/14/19 hydrOXYzine pamoate [Vistaril] 50 mg PO HS 05/21/19 11/14/19 acetaZOLAMIDE [Diamox] 500 mg PO BID 11/14/19 11/14/19 ALLERGIES: Allergies Allergy/AdvReac Type Severity Reaction Status Date / Time cephalexin [From Keflex] Allergy Rash/Hives Verified 09/26/19 07:40 codeine Allergy Rash/Hives Verified 09/26/19 07:40 enoxaparin [From Lovenox] Allergy Dyspnea Verified 09/26/19 07:40 kiwi Allergy Dyspnea Verified 09/26/19 07:40 latex Allergy Rash/Hives, Verified 09/26/19 07:40 SWELLING vancomycin [From Vancocin] Allergy Rash/Hives Verified 09/26/19 07:40 morphine AdvReac LOW BLOOD Verified 09/26/19 07:40 PRESSURE SOCIAL HISTORY: No past tobacco use. FAMILY HISTORY: No family history of ulcerative colitis disease or Crohn's disease. Family history of morbid obesity. No lupus in the family. No reports of stomach or esophageal cancer. REVIEW OF ORGAN SYSTEMS: CONSTITUTIONAL: At height of 5 feet 0 inches, her ideal body weight is 127 pounds. Her highest weight was 292 pounds, BMI 57.1. Lowest weight 220 pounds. HEENT: Denies any active troubles with vision or hearing. ENDOCRINE: No diabetes. No hypothyroidism. CARDIOVASCULAR: Past reports of palpitations or heart attacks or chest pain. RESPIRATORY: Has daytime somnolence. Has asthma. GASTROINTESTINAL: Denies any bright red blood per rectum. No diarrhea. No constipation. Has gastroesophageal reflux disease MUSCULOSKELETAL: Has lower back pain and joint pain. Has osteoarthritis of the knees. History of bilateral lower extremity edema. NEURO: No headaches. Has seizure disorders. PSYCH: Has depression. No suicidal ideation. Has bipolar disorder RHEUMATOLOGIC: No lupus. Has rheumatoid arthritis. HEMATOLOGIC: Denies any abnormal bleeding or bruising. No personal history of DVTs. SKIN: No rash. No skin cancer. PHYSICAL EXAM: VITAL SIGNS: Height 5 foot 0 inches, weight 268 pounds. BMI 52.5 Vital Signs Temp 98 F 02/12/20 13:10 Pulse 72 02/12/20 13:10 Resp BP 111/72 02/12/20 13:10 Pulse Ox GENERAL: Well-developed in no acute distress. HEENT: No scleral icterus. Extraocular movements grossly intact. Hears conversational speech. No nasal drainage. NECK: Supple without lymphadenopathy. CHEST: Nonlabored respirations with equal bilateral excursions. CARDIOVASCULAR: Regular rate and regular rhythm. Distal 2+ pulses. ABDOMEN: Obese, soft, nontender, nondistended. MUSCULOSKELETAL: No clubbing, cyanosis. NEURO: No focal or lateralizing signs. Cranial nerves 2 through 12 grossly within normal limits. PSYCH: Appropriate affect. Alert and oriented to person, place and time. SKIN: Good skin turgor. Well perfused. LABS: Reviewed. Iron is low. Cholesterol is elevated. Vitamin D is low. EKG: NOrmal sinus rhythm. STUDIES: Barium swallow independently reviewed without esophageal dysmotility or large hiatal hernia EGD FINDINGS: Squamocolumnar junction 40 cm from the incisors. Diaphragmatic hiatus at 40 cm. Hill grade 2 lower esophageal valve. LA grade B erosive esophagitis. No active duodenitis. Chronic gastritis Final Pathologic Diagnosis GASTRIC ANTRUM, BIOPSY: Moderate chronic gastritis. Helicobacter pylori organisms are not identified on routine H+E sections. ASSESSMENT: 1. Morbid obesity due to excess calories 2. Body mass index of 57.1, initial 3. Gastroesophageal reflux disease 4. Osteoarthritis of the lower back 5. Osteoarthritis bilateral hips 6. Osteoarthritis bilateral knees 7. Asthma 8. Hypertensive heart disease 9. Rheumatoid arthritis 10. Anxiety 11. Diabetes type II, non-insulin dependent 12. Bipolar disorder 13. Seizure disorder 14. Restless leg syndrome 15. History of MRSA 16. Generalized anxiety disorder 17. Depressive disorder 18. Complications from adjustable gastric band PLAN: 1. She is looking into the sleeve gastrectomy. 2. She has no contra-indications to sleeve gastrectomy. 3. Continue with medical supervised weight loss. Objective - Vital Signs Vital signs: Vital Signs Temp 98 F 02/12/20 13:10 Pulse 72 02/12/20 13:10 Resp BP 111/72 02/12/20 13:10 Pulse Ox Intake & Output 02/11/20 02/12/20 02/12/20 18:59 06:59 18:59 Weight 122.016 kg - Labs CBC & Chem 7: 02/12/20 13:40 02/12/20 13:40
[2020-02-12 14:12] LABS: HCT 44.1 % (34.0-46.0); HGB 14.2 gm/dL (11.4-16.0); MCH 31.4 pg (25.0-35.0); MCHC 32.2 g/dL (31.0-37.0); MCV 97.4 fL (80.0-100.0); Mean Platelet Volume 7.7; Platelet Count 174 k/uL (150-450); RBC 4.53 m/uL (3.80-5.40); RDW 14.1 % (11.5-15.5); WBC 7.3 k/uL (3.8-10.6)
[2020-02-12 21:04] LABS: % Iron Saturation 10.26 (12.00-45.00); African American GFR (CKD) 78.8 (60.0-200.0); Albumin 4.4 g/dL (3.80-4.90); Albumin/Globulin Ratio 2.1 (1.60-3.17); Anion Gap 7.8 mmol/L (4.00-12.00); Calcium 8.8 mg/dL (8.7-10.3); Carbon Dioxide 19.2 mmol/L (21.6-31.8); Chol/HDL Ratio 4.45; Globulin 2.1 g/dL (1.6-3.3); LDL Cholesterol,Calculated 135.2 mg/dL (0.0-131.0); Magnesium 1.9 mg/dL (1.5-2.4); Phosphorus 2.9 mg/dL (2.4-5.1); Total Bilirubin 0.3 mg/dL (0.3-1.2); Total Protein 6.5 g/dL (6.2-8.2); VLDL Calculation 26.8 mg/dL (5.00-40.00)
[2020-02-12 21:58] LABS: Ferritin 16.7 ng/mL (10.0-291.0)
[2020-02-13 03:43] LABS: INR 0.94 (0.90-1.11); Partial Thromboplastin Time 27.5 sec (23.5-31.0); Prothrombin Time 10.4 sec (9.9-11.9)
[2020-02-13 12:48] LABS: Zinc, Serum 66 ug/dL (60-130)
[2020-02-13 13:02] LABS: Vitamin A 41 ug/dL (38-106)
[2020-02-14 07:06] LABS: Vit B1(Thiamine) 51 ug/L (38-122)
[2020-02-15 23:19] LABS: Selenium 126 mcg/L (63-160)
== END | disposition home or self-care (01) ==
LOC: BARWHC3 12:12
PROVIDERS: ATTEND Surgery Plastic and Reconstructive Surgery
DX: E66.01 Morbid (severe) obesity due to excess calories (principal); K21.9 Gastro-esophageal reflux disease without esophagitis; M16.0 Bilateral primary osteoarthritis of hip; M17.0 Bilateral primary osteoarthritis of knee; J45.909 Unspecified asthma, uncomplicated; I11.9 Hypertensive heart disease without heart failure; M06.9 Rheumatoid arthritis, unspecified; E11.9 Type 2 diabetes mellitus without complications; F31.9 Bipolar disorder, unspecified; G40.909 Epilepsy, unspecified, not intractable, without status epilepticus; G25.81 Restless legs syndrome; F41.1 Generalized anxiety disorder; K95.09 Other complications of gastric band procedure; Z86.14 Personal history of Methicillin resistant Staphylococcus aureus infection; Z88.8 Allergy status to other drugs, medicaments and biological substances; Z68.43 Body mass index [BMI] 50.0-59.9, adult; Z88.5 Allergy status to narcotic agent; Z88.1 Allergy status to other antibiotic agents; Z91.018 Allergy to other foods; Z79.84 Long term (current) use of oral hypoglycemic drugs; Z79.899 Other long term (current) drug therapy; E21.1 Secondary hyperparathyroidism, not elsewhere classified; D50.9 Iron deficiency anemia, unspecified; K90.9 Intestinal malabsorption, unspecified; E55.9 Vitamin D deficiency, unspecified; K74.1 Hepatic sclerosis; N19 Unspecified kidney failure; K50.90 Crohn's disease, unspecified, without complications
CPT/HCPCS: 80053; 80061; 82306; 82525; 82607; 82728; 82746; 83036; 83540; 83550; 83735; 83970; 84100; 84134; 84255; 84425; 84443; 84590; 84630; 85027; 85610; 85730; 93005; 99211

== ENCOUNTER → 2020-03-16 | Outpatient (CLI) | payer OTHER, MEDICARE ==
[2020-03-16 09:11] VITALS: BMI 40.3
== END ==
LOC: BARWHC3 08:17
PROVIDERS: ATTEND Surgery Plastic and Reconstructive Surgery
DX: E66.01 Morbid (severe) obesity due to excess calories (principal); Z71.3 Dietary counseling and surveillance; Z68.30 Body mass index [BMI] 30.0-30.9, adult
CPT/HCPCS: 97804

== ENCOUNTER → 2020-06-24 | Outpatient (CLI) | payer OTHER, MEDICARE ==
[2020-06-24 15:25] VITALS: BP 129/85; PULSE 67; RESP 18; TEMP 98; BMI 41.6
--- NOTE | 2020-06-24 15:44 | P.PN ---
Subjective Progress Note Date: 06/24/20 DATE OF SERVICE: 06/24/2020 CHIEF COMPLAINT: Morbid obesity HISTORY OF PRESENT ILLNESS: Morena Castro is a 44-year-old female who comes with lifelong morbid obesity. She has had an adjustable gastric band with complications including trouble with swallowing and as a result had it removed. Additionally, she has had unsuccessful weight loss from her band in the past. She presents today for sleeve gastrectomy after completing medical supervised weight loss including psych assessment and bariatric dietary education. At height of 5 feet 0 inches, her ideal body weight is 127 pounds. Her highest weight was 292 pounds, BMI 57.1. She comes in 273 pounds 268 pounds 4 months ago. She has gained 5 pounds in 5 months Her body mass index is 53.5. She is 146 pounds overweight. PAST MEDICAL HISTORY: 1. Morbid obesity due to excess calories 2. Body mass index of 57.1, initial 3. Gastroesophageal reflux disease 4. Osteoarthritis of the lower back 5. Osteoarthritis bilateral hips 6. Osteoarthritis bilateral knees 7. Asthma 8. Hypertensive heart disease 9. Rheumatoid arthritis 10. Anxiety 11. Diabetes type II, non-insulin dependent 12. Bipolar disorder 13. Seizure disorder 14. Restless leg syndrome 15. History of MRSA 16. Generalized anxiety disorder 17. Depressive disorder PAST SURGICAL HISTORY: 1. Lap band surgery, 2009 2. Removal of lap band, 2011 3. Upper endoscopy 4. Cholecystectomy 5. C-sections x 3 6. Ankle surgeries x 10 7. Tonsillectomy 8. Tubal ligation 9. Uterine ablation 10. Liver biopsy HOME MEDICATIONS: Home Medications Medication Instructions Recorded Confirmed Albuterol Inhaler (Mhu) [Ventolin 1 - 2 puff INHALATION RT-Q6H PRN 11/06/17 06/24/20 Hfa Inhaler (Mhu)] EPINEPHrine [Epipen 2-Macario] 0.3 mg IM ONCE PRN 11/06/17 06/24/20 Famotidine [Pepcid] 40 mg PO BID 11/06/17 06/24/20 Folic Acid 1 mg PO DAILY 11/06/17 06/24/20 Metoprolol Succinate (ER) [Toprol 50 mg PO DAILY 11/06/17 06/24/20 XL] Montelukast [Singulair] 10 mg PO HS 11/06/17 06/24/20 Omeprazole [PriLOSEC] 20 mg PO AC-BID 11/06/17 06/24/20 metHOTREXate sodium [Methotrexate] 25 mg PO DEVI 11/06/17 06/24/20 Budesonide/Formoterol Fumarate 2 puff INHALATION RT-BID 11/18/18 06/24/20 [Symbicort 160-4.5 Mcg Inhaler] LORazepam [Ativan] 1 mg PO DAILY PRN 11/18/18 06/24/20 metFORMIN HCL [Glucophage] 1,000 mg PO HS 11/18/18 06/24/20 metFORMIN HCL [Glucophage] 500 mg PO DAILY 11/18/18 06/24/20 ondansetron HCL [Zofran] 8 mg PO TID PRN 11/18/18 06/24/20 Cariprazine HCl [Vraylar] 3 mg PO DAILY 04/22/19 06/24/20 Prazosin [Minipress] 2 mg PO HS 04/22/19 06/24/20 Promethazine [Phenergan] 12.5 mg PO Q8HR PRN 04/22/19 06/24/20 lamoTRIgine [LaMICtal] 300 mg PO HS 04/22/19 06/24/20 rOPINIRole HCL [Requip] 1.25 mg PO HS 04/22/19 06/24/20 acetaZOLAMIDE [Diamox] 500 mg PO BID 11/14/19 06/24/20 Desvenlafaxine Succinate [Pristiq] 75 mg PO DAILY 01/02/20 06/24/20 Ergocalciferol [Vitamin D2 50,000 unit PO WEEKLY 02/13/20 06/24/20 (DRISDOL)] Iron 325 mg PO DAILY 02/13/20 06/24/20 Temazepam [Restoril] 15 mg PO HS 03/16/20 06/24/20 ALLERGIES: Allergies Allergy/AdvReac Type Severity Reaction Status Date / Time cephalexin [From Keflex] Allergy Rash/Hives Verified 06/24/20 15:21 codeine Allergy Rash/Hives Verified 06/24/20 15:21 enoxaparin [From Lovenox] Allergy Dyspnea Verified 06/24/20 15:21 kiwi Allergy Dyspnea Verified 06/24/20 15:21 latex Allergy Rash/Hives, Verified 06/24/20 15:21 SWELLING vancomycin [From Vancocin] Allergy Rash/Hives Verified 06/24/20 15:21 morphine AdvReac LOW BLOOD Verified 06/24/20 15:21 PRESSURE l SOCIAL HISTORY: No past tobacco use. FAMILY HISTORY: No family history of ulcerative colitis disease or Crohn's disease. Family history of morbid obesity. No lupus in the family. No reports of stomach or esophageal cancer. REVIEW OF ORGAN SYSTEMS: CONSTITUTIONAL: At height of 5 feet 0 inches, her ideal body weight is 127 pounds. Her highest weight was 292 pounds, BMI 57.1. Lowest weight 220 pounds. HEENT: Denies any active troubles with vision or hearing. ENDOCRINE: No diabetes. No hypothyroidism. CARDIOVASCULAR: Past reports of palpitations or heart attacks or chest pain. RESPIRATORY: Has daytime somnolence. Has asthma. GASTROINTESTINAL: Denies any bright red blood per rectum. No diarrhea. No constipation. Has gastroesophageal reflux disease MUSCULOSKELETAL: Has lower back pain and joint pain. Has osteoarthritis of the knees. History of bilateral lower extremity edema. NEURO: No headaches. Has seizure disorders. PSYCH: Has depression. No suicidal ideation. Has bipolar disorder RHEUMATOLOGIC: No lupus. Has rheumatoid arthritis. HEMATOLOGIC: Denies any abnormal bleeding or bruising. No personal history of DVTs. SKIN: No rash. No skin cancer. PHYSICAL EXAM: VITAL SIGNS: Height 5 foot 0 inches, weight 273 pounds. BMI 53.5 Vital Signs Temp 98 F 06/24/20 15:20 Pulse 67 06/24/20 15:20 Resp 18 06/24/20 15:20 BP 129/85 06/24/20 15:20 Pulse Ox GENERAL: Well-developed in no acute distress. HEENT: No scleral icterus. Extraocular movements grossly intact. Hears conversational speech. No nasal drainage. NECK: Supple without lymphadenopathy. CHEST: Nonlabored respirations with equal bilateral excursions. CARDIOVASCULAR: Regular rate and regular rhythm. Distal 2+ pulses. ABDOMEN: Obese, soft, nontender, nondistended. MUSCULOSKELETAL: No clubbing, cyanosis. NEURO: No focal or lateralizing signs. Cranial nerves 2 through 12 grossly within normal limits. PSYCH: Appropriate affect. Alert and oriented to person, place and time. SKIN: Good skin turgor. Well perfused. ASSESSMENT: 1. Morbid obesity due to excess calories 2. Body mass index of 57.1, initial 3. Gastroesophageal reflux disease 4. Osteoarthritis of the lower back 5. Osteoarthritis bilateral hips 6. Osteoarthritis bilateral knees 7. Asthma 8. Hypertensive heart disease 9. Rheumatoid arthritis 10. Anxiety 11. Diabetes type II, non-insulin dependent 12. Bipolar disorder 13. Seizure disorder 14. Restless leg syndrome 15. History of MRSA 16. Generalized anxiety disorder 17. Depressive disorder 18. Prior gastric band with complications, removed PLAN: 1. Bariatric options between a sleev and a [id number] gastric bypass were reviewed in detail. The patient elected for a sleeve gastrectomy. Robotic assisted approach described. 2. The [place] [facility] Data was also reviewed with benefits and risks as described. 3. An 8 page second-generation bariatric consent form was reviewed in detail including potential of bleeding, infection, leaks, adequate weight loss, nutritional deficiencies which the patient demonstrated understanding of the risks. 4. A 2 week high-protein low caloric 800 kcal diet described to address hepatomegaly. 5. Preoperative labs including complete metabolic panel and CBC with type and screen recommended. 6. DVT prophylaxis per [place] [facility]. 7. Antibiotic prophylaxis. 8. Inpatient hospitalization anticipated for more than 2 nights. 9. All questions and concerns were addressed with the patient. 10. She is at elevated risk for perioperative complications including leak and stricture due to pre-existing history of adjustable gastric band with removal. 11. Overall, patient has expressed understanding of bariatric care including postoperative diet and commitment of lifestyle. Patient should benefit from surgical intervention for correction of her morbid obesity. Objective - Vital Signs Vital signs: Vital Signs Temp 98 F 06/24/20 15:20 Pulse 67 06/24/20 15:20 Resp 18 06/24/20 15:20 BP 129/85 06/24/20 15:20 Pulse Ox Intake & Output 06/23/20 06/24/20 06/24/20 18:59 06:59 18:59 Weight 124.284 kg
== END ==
LOC: BARWHC3 14:22
PROVIDERS: ATTEND Surgery Plastic and Reconstructive Surgery
DX: E66.01 Morbid (severe) obesity due to excess calories (principal); K21.9 Gastro-esophageal reflux disease without esophagitis; M17.0 Bilateral primary osteoarthritis of knee; M47.816 Spondylosis without myelopathy or radiculopathy, lumbar region; M16.0 Bilateral primary osteoarthritis of hip; J45.909 Unspecified asthma, uncomplicated; I11.9 Hypertensive heart disease without heart failure; M06.9 Rheumatoid arthritis, unspecified; F41.9 Anxiety disorder, unspecified; E11.9 Type 2 diabetes mellitus without complications; F31.9 Bipolar disorder, unspecified; G40.909 Epilepsy, unspecified, not intractable, without status epilepticus; G25.81 Restless legs syndrome; F41.1 Generalized anxiety disorder; Z68.43 Body mass index [BMI] 50.0-59.9, adult; Z79.51 Long term (current) use of inhaled steroids; Z79.84 Long term (current) use of oral hypoglycemic drugs; Z79.899 Other long term (current) drug therapy; Z86.14 Personal history of Methicillin resistant Staphylococcus aureus infection; Z98.84 Bariatric surgery status
CPT/HCPCS: 99211

== ENCOUNTER → 2020-07-28 | Outpatient (CLI) | payer OTHER, MEDICARE ==
[2020-07-28 13:58] LABS: Basophils # (A) 0.1 k/uL (0-0.2); Basophils % (A) 1 %; Eosinophils # (A) 0.3 k/uL (0-0.7); Eosinophils % (A) 4 %; HCT 45.4 % (34.0-46.0); HGB 15.6 gm/dL (11.4-16.0); Lymphocytes # (A) 1.3 k/uL (1.0-4.8); Lymphocytes % (A) 20 %; MCH 31.7 pg (25.0-35.0); MCHC 34.3 g/dL (31.0-37.0); MCV 92.4 fL (80.0-100.0); Monocytes # (A) 0.4 k/uL (0-1.0); Monocytes % (A) 6 %; Neutrophils # (A) 4.3 k/uL (1.3-7.7); Neutrophils % (A) 67 %; Platelet Count 185 k/uL (150-450); RBC 4.92 m/uL (3.80-5.40); RDW 12.6 % (11.5-15.5); WBC 6.4 k/uL (3.8-10.6)
[2020-07-28 14:19] LABS: Albumin 4.5 g/dL (3.5-5.0); Calcium 9.5 mg/dL (8.4-10.2); Potassium 4.2 mmol/L (3.5-5.1); Total Bilirubin 0.7 mg/dL (0.2-1.3); Total Protein 7.3 g/dL (6.3-8.2)
== END | disposition home or self-care (01) ==
LOC: LABPAT 12:01
PROVIDERS: ATTEND Surgery Plastic and Reconstructive Surgery
DX: Z01.818 Encounter for other preprocedural examination (principal)
CPT/HCPCS: 36415; 80053; 85025

== ENCOUNTER 2020-08-03 07:30 | Inpatient (IN) | payer OTHER, MEDICARE ==
[~2020-08-03 07:30] MED LIST changes: +CHLORHEXIDINE GLUCONATE 15 ML CUP MUCOUS MEM PRN; +CLINDAMYCIN 900 MG in DEXTROSE 5% IN WATER 50 ML IVPB PRN; +DEXAMETHASONE SOD PHOSPHATE 4 MG/ML 1 ML VIAL IV ONE; +GENTAMICIN 440 MG in SODIUM CHLORIDE 0.9% 100 ML IVPB PRN; -LACTATED RINGERS 1,000 ML IV SCH; +ONDANSETRON 4 MG/2 ML VIAL IVP ONE; +PANTOPRAZOLE 40 MG/10 ML VIAL IVP PRN; +SCOPOLAMINE 1.5MG/72HR PATCH TRANSDERM ONE; +ceFAZolin 3 GM in SODIUM CHLORIDE 0.9% 100 ML IVPB PRN; +fentaNYL (PF) 50 MCG/ML 2 ML AMP IV PRN
[2020-08-03] MEDS ORDERED: SCOPOLAMINE 1.5MG/72HR PATCH TRANSDERM PRN (08:08)
[2020-08-03] MEDS ORDERED: MELOXICAM 7.5 MG TAB PO PRN (08:08)
[2020-08-03] MEDS ORDERED: GABAPENTIN 300 MG CAP PO PRN (08:08)
[2020-08-03] MEDS ORDERED: ACETAMINOPHEN TAB 500 MG TAB PO PRN (08:08)
--- NOTE | 2020-08-03 08:08 | P.GSHP ---
History of Present Illness H&P Date: 08/03/20 CHIEF COMPLAINT: Morbid obesity HISTORY OF PRESENT ILLNESS: Morena Castro is a 44-year-old female who comes with lifelong morbid obesity. She presents today for sleeve gastrectomy to address her morbid obesity. She has comorbidities including osteoarthritis of the lower back, hips, knees, hypertensive heart disease and diabetes type 2. She has completed all the bariatric requirements including psych assessment, medical risk assessment, bariatric education. At height of 5 feet 8 inches, her ideal body weight is 163 pounds. Her highest weight was 292 pounds. She comes in 260 pounds from 273 pounds 1 month ago. She has lost 13 pounds in 1 months. PAST MEDICAL HISTORY: 1. Morbid obesity due to excess calories 2. Body mass index of 57.1, initial 3. Gastroesophageal reflux disease 4. Osteoarthritis of the lower back 5. Osteoarthritis bilateral hips 6. Osteoarthritis bilateral knees 7. Asthma 8. Hypertensive heart disease 9. Rheumatoid arthritis 10. Anxiety 11. Diabetes type II, non-insulin dependent 12. Bipolar disorder 13. Seizure disorder 14. Restless leg syndrome 15. History of MRSA 16. Generalized anxiety disorder 17. Depressive disorder PAST SURGICAL HISTORY: 1. Lap band surgery, 2009 2. Removal of lap band, 2011 3. Upper endoscopy 4. Cholecystectomy 5. C-sections x 3 6. Ankle surgeries x 10 7. Tonsillectomy 8. Tubal ligation 9. Uterine ablation 10. Liver biopsy HOME MEDICATIONS: Home Medications Medication Instructions Recorded Confirmed Albuterol Inhaler (Mhu) [Ventolin 1 - 2 puff INHALATION RT-Q6H PRN 11/06/17 06/24/20 Hfa Inhaler (Mhu)] EPINEPHrine [Epipen 2-Macario] 0.3 mg IM ONCE PRN 11/06/17 06/24/20 Famotidine [Pepcid] 40 mg PO BID 11/06/17 06/24/20 Folic Acid 1 mg PO DAILY 11/06/17 06/24/20 Metoprolol Succinate (ER) [Toprol 50 mg PO DAILY 11/06/17 06/24/20 XL] Montelukast [Singulair] 10 mg PO HS 11/06/17 06/24/20 Omeprazole [PriLOSEC] 20 mg PO AC-BID 11/06/17 06/24/20 metHOTREXate sodium [Methotrexate] 25 mg PO DEVI 11/06/17 06/24/20 Budesonide/Formoterol Fumarate 2 puff INHALATION RT-BID 11/18/18 06/24/20 [Symbicort 160-4.5 Mcg Inhaler] LORazepam [Ativan] 1 mg PO DAILY PRN 11/18/18 06/24/20 metFORMIN HCL [Glucophage] 1,000 mg PO HS 11/18/18 06/24/20 metFORMIN HCL [Glucophage] 500 mg PO DAILY 11/18/18 06/24/20 ondansetron HCL [Zofran] 8 mg PO TID PRN 11/18/18 06/24/20 Cariprazine HCl [Vraylar] 3 mg PO DAILY 04/22/19 06/24/20 Prazosin [Minipress] 2 mg PO HS 04/22/19 06/24/20 Promethazine [Phenergan] 12.5 mg PO Q8HR PRN 04/22/19 06/24/20 lamoTRIgine [LaMICtal] 300 mg PO HS 04/22/19 06/24/20 rOPINIRole HCL [Requip] 1.25 mg PO HS 04/22/19 06/24/20 acetaZOLAMIDE [Diamox] 500 mg PO BID 11/14/19 06/24/20 Desvenlafaxine Succinate [Pristiq] 75 mg PO DAILY 01/02/20 06/24/20 Ergocalciferol [Vitamin D2 50,000 unit PO WEEKLY 02/13/20 06/24/20 (DRISDOL)] Iron 325 mg PO DAILY 02/13/20 06/24/20 Temazepam [Restoril] 15 mg PO HS 03/16/20 06/24/20 ALLERGIES: Allergies Allergy/AdvReac Type Severity Reaction Status Date / Time cephalexin [From Keflex] Allergy Rash/Hives Verified 06/24/20 15:21 codeine Allergy Rash/Hives Verified 06/24/20 15:21 enoxaparin [From Lovenox] Allergy Dyspnea Verified 06/24/20 15:21 kiwi Allergy Dyspnea Verified 06/24/20 15:21 latex Allergy Rash/Hives, Verified 06/24/20 15:21 SWELLING vancomycin [From Vancocin] Allergy Rash/Hives Verified 06/24/20 15:21 morphine AdvReac LOW BLOOD Verified 06/24/20 15:21 PRESSURE l SOCIAL HISTORY: No past tobacco use. FAMILY HISTORY: No family history of ulcerative colitis disease or Crohn's disease. Family history of morbid obesity. No lupus in the family. No reports of stomach or esophageal cancer. REVIEW OF ORGAN SYSTEMS: CONSTITUTIONAL: At height of 5 feet 8 inches, her ideal body weight is 163 pounds. Her highest weight was 292 pounds. Lowest weight 220 pounds. HEENT: Denies any active troubles with vision or hearing. ENDOCRINE: No diabetes. No hypothyroidism. CARDIOVASCULAR: Past reports of palpitations or heart attacks or chest pain. RESPIRATORY: Has daytime somnolence. Has asthma. GASTROINTESTINAL: Denies any bright red blood per rectum. No diarrhea. No constipation. Has gastroesophageal reflux disease MUSCULOSKELETAL: Has lower back pain and joint pain. Has osteoarthritis of the knees. History of bilateral lower extremity edema. NEURO: No headaches. Has seizure disorders. PSYCH: Has depression. No suicidal ideation. Has bipolar disorder RHEUMATOLOGIC: No lupus. Has rheumatoid arthritis. HEMATOLOGIC: Denies any abnormal bleeding or bruising. No personal history of DVTs. SKIN: No rash. No skin cancer. PHYSICAL EXAM: VITAL SIGNS: Height 5 foot 8 inches, weight 260 pounds. GENERAL: Well-developed in no acute distress. HEENT: No scleral icterus. Extraocular movements grossly intact. Hears conversational speech. No nasal drainage. NECK: Supple without lymphadenopathy. CHEST: Nonlabored respirations with equal bilateral excursions. CARDIOVASCULAR: Regular rate and regular rhythm. Distal 2+ pulses. ABDOMEN: Obese, soft, nontender, nondistended. MUSCULOSKELETAL: No clubbing, cyanosis. NEURO: No focal or lateralizing signs. Cranial nerves 2 through 12 grossly within normal limits. PSYCH: Appropriate affect. Alert and oriented to person, place and time. SKIN: Good skin turgor. Well perfused. ASSESSMENT: 1. Morbid obesity due to excess calories 2. Body mass index of 57.1, initial 3. Gastroesophageal reflux disease 4. Osteoarthritis of the lower back 5. Osteoarthritis bilateral hips 6. Osteoarthritis bilateral knees 7. Asthma 8. Hypertensive heart disease 9. Rheumatoid arthritis 10. Anxiety 11. Diabetes type II, non-insulin dependent 12. Bipolar disorder 13. Seizure disorder 14. Restless leg syndrome 15. History of MRSA 16. Generalized anxiety disorder 17. Depressive disorder 18. Prior gastric band with complications, removed PLAN: 1. The patient elected for a sleeve gastrectomy. Robotic assisted approach described. 2. DVT prophylaxis per [place] [facility]. 3. Antibiotic prophylaxis. 4. Inpatient hospitalization anticipated for more than 2 nights. 5. All questions and concerns were addressed with the patient. 6. She is at elevated risk for further leaks including stricture due to pre- existing gastric band removal Past Medical History Past Medical History: Asthma, Chest Pain / Angina, GERD/Reflux, Liver Disease, Skin Disorder Additional Past Medical History / Comment(s): psoriasis, rapid heart beat, restless legs syndrome, polycystic ovarian syndrome, elevated liver enzymes, chronic nausea,MIGRAINE HEADACHE,pseudotumor cerebri,steroids May 2020 History of Any Multi-Drug Resistant Organisms: MRSA Date of last positivie culture/infection: 2012 MDRO Source:: LEFT ANKLE 2012 Past Surgical History: Cholecystectomy, Orthopedic Surgery, Tonsillectomy, Tubal Ligation, Uterine Ablation Additional Past Surgical History / Comment(s): lap band placement and removal, 10 left ankle surgeries including fusion, x3, recent liver biopsy Past Anesthesia/Blood Transfusion Reactions: No Reported Reaction Additional Past Anesthesia/Blood Transfusion Reaction / Comment(s): no previous blood transfusion Smoking Status: Never smoker - Past Family History Mother Family Medical History: Asthma Additional Family Medical History / Comment(s): Heart defect Father Family Medical History: Asthma, Hypertension Additional Family Medical History / Comment(s): , heart disease. Medications and Allergies Home Medications Medication Instructions Recorded Confirmed Type Albuterol Inhaler (Mhu) [Ventolin 1 - 2 puff INHALATION RT-Q6H PRN 11/06/17 07/28/20 History Hfa Inhaler (Mhu)] EPINEPHrine [Epipen 2-Macario] 0.3 mg IM ONCE PRN 11/06/17 07/28/20 History Famotidine [Pepcid] 40 mg PO BID 11/06/17 07/28/20 History Folic Acid 1 mg PO DAILY 11/06/17 07/28/20 History Metoprolol Succinate (ER) [Toprol 50 mg PO QAM 11/06/17 07/28/20 History XL] Montelukast [Singulair] 10 mg PO HS 11/06/17 07/28/20 History Omeprazole [PriLOSEC] 20 mg PO AC-BID 11/06/17 07/28/20 History metHOTREXate sodium [Methotrexate] 25 mg PO DEVI 11/06/17 07/28/20 History Budesonide/Formoterol Fumarate 2 puff INHALATION RT-BID 11/18/18 07/28/20 History [Symbicort 160-4.5 Mcg Inhaler] LORazepam [Ativan] 1 mg PO DAILY PRN 11/18/18 07/28/20 History metFORMIN HCL [Glucophage] 1,000 mg PO HS 11/18/18 07/28/20 History metFORMIN HCL [Glucophage] 500 mg PO DAILY 11/18/18 07/28/20 History ondansetron HCL [Zofran] 8 mg PO TID PRN 11/18/18 07/28/20 History Cariprazine HCl [Vraylar] 3 mg PO DAILY 04/22/19 07/28/20 History Prazosin [Minipress] 2 mg PO HS 04/22/19 07/28/20 History Promethazine [Phenergan] 12.5 mg PO Q8HR PRN 04/22/19 07/28/20 History lamoTRIgine [LaMICtal] 300 mg PO HS 04/22/19 07/28/20 History rOPINIRole HCL [Requip] 1.25 mg PO HS 04/22/19 07/28/20 History acetaZOLAMIDE [Diamox] 500 mg PO BID 11/14/19 07/28/20 History Desvenlafaxine Succinate [Pristiq] 75 mg PO QAM 01/02/20 07/28/20 History Ergocalciferol [Vitamin D2 50,000 unit PO WEEKLY 02/13/20 07/28/20 History (DRISDOL)] Iron 325 mg PO DAILY 02/13/20 07/28/20 History Temazepam [Restoril] 15 mg PO HS 03/16/20 07/28/20 History Atorvastatin [Lipitor] 20 mg PO DAILY 07/28/20 07/28/20 History Allergies Allergy/AdvReac Type Severity Reaction Status Date / Time cephalexin [From Keflex] Allergy Rash/Hives Verified 08/03/20 13:00 codeine Allergy Rash/Hives Verified 08/03/20 13:00 enoxaparin [From Lovenox] Allergy Dyspnea Verified 08/03/20 13:00 kiwi Allergy Dyspnea Verified 08/03/20 13:00 latex Allergy Rash/Hives, Verified 08/03/20 13:00 SWELLING vancomycin [From Vancocin] Allergy Rash/Hives Verified 08/03/20 13:00 morphine AdvReac LOW BLOOD Verified 08/03/20 13:00 PRESSURE
[2020-08-03] MEDS ORDERED: DEXAMETHASONE SOD PHOSPHATE 10 MG/ML 1 ML VIAL IV PRN ×2 (08:11→17:06)
[2020-08-03] MEDS ORDERED: HEPARIN SODIUM,PORCINE/PF 5,000 UNIT/0.5 ML SYRINGE SQ PRN (08:11)
[2020-08-03 13:32] LABS: Glucose,Whole Blood 105 mg/dL (75-99)
[2020-08-03] MEDS: LACTATED RINGERS 1,000 ML IV SCH (13:32)
[2020-08-03] MEDS ORDERED: MIDAZOLAM 2 MG/2 ML VIAL IV ONE (13:57)
[2020-08-03] MEDS ORDERED: ROCURONIUM 10 MG/ML (5 ML VIAL) IV ONE (14:39)
[2020-08-03] MEDS ORDERED: LIDOCAINE 1% INJ 10MG/ML (20 ML MDV) ONE (14:39)
[2020-08-03] MEDS ORDERED: ROPIVACAINE 5 MG/ML 30 ML VIAL ONE (14:39)
[2020-08-03] MEDS ORDERED: SODIUM CHLORIDE 0.9% 100 ML BAG ONE (14:39)
[2020-08-03] MEDS ORDERED: NEOSTIGMINE 1 MG/ML 10 ML VIAL ONE (14:39)
[2020-08-03] MEDS ORDERED: MIDAZOLAM 2 MG/2 ML VIAL ONE (14:39)
[2020-08-03] MEDS ORDERED: LIDOCAINE 1%-EPI 1:100,000 20 ML VIAL ONE (14:39)
[2020-08-03] MEDS ORDERED: SUCCINYLCHOLINE CHLORIDE 100 MG/5 ML SYR IV ONE (14:39)
[2020-08-03] MEDS ORDERED: diphenhydrAMINE 50 MG/ML 1 ML VIAL ONE (14:39)
[2020-08-03] MEDS ORDERED: ceFAZolin 1,000 MG VIAL ONE (14:39)
[2020-08-03] MEDS ORDERED: fentaNYL (PF) 50 MCG/ML 2 ML AMP ONE (14:39)
[2020-08-03] MEDS ORDERED: PROPOFOL 10 MG/ML 20 ML VIAL IV ONE (14:39)
[2020-08-03] MEDS ORDERED: GLYCOPYRROLATE 0.2 MG/ML 2 ML VIAL ONE (14:39)
--- NOTE | 2020-08-03 14:40 | P.ANPRN ---
Procedure Note - Anesthesia - Nerve Block Performed Bilateral Erector Spinae Single Time Out Performed: Yes Date of Procedure: 08/03/20 Procedure Start Time: 13:56 Procedure Stop Time: 14:10 Location of Patient: PreOp Indication: Acute Post-Operative Pain, Requested by Surgeon Sedation Type: Sedate with meaningful contact maintained Preparation: Sterile Prep Position: Prone Needle Types: Pajunk Needle Gauge: 21 Ultrasound used to visualize needle placement: Yes Ultrasound used to observe medication spread: Yes Blood Aspirated: No Pain Paresthesia on Injection Noted: No Resistance on Injection: Normal Image Stored and Saved: Yes Events: Uneventful and Well Tolerated (ropi .5% 15cc plus xylo 1% 15cc at t10 bilateraly)
[2020-08-03] MEDS ORDERED: LIDOCAINE 1%-EPI 1:100,000 20 ML VIAL SQ ONE (15:07)
[2020-08-03] MEDS ORDERED: LACTATED RINGERS 1,000 ML IV ONE (16:53)
[2020-08-03] MEDS ORDERED: NALOXONE 0.4 MG/ML 1 ML VIAL IV PRN (17:03)
[2020-08-03] MEDS ORDERED: PROMETHAZINE 25 MG TAB PO PRN (17:07)
[2020-08-03] MEDS ORDERED: LORazepam 1 MG TAB PO PRN (17:07)
[2020-08-03 17:23] LABS: Glucose,Whole Blood 126 mg/dL (75-99)
--- NOTE | 2020-08-03 17:32 | P.OP ---
Date of Procedure: 08/03/20 Description of Procedure: SURGEON: BOBBI MICHAEL MD PREOPERATIVE DIAGNOSES: 1. Morbid obesity due to excess calories 2. Body mass index of 40 3. Gastroesophageal reflux disease 4. Osteoarthritis of the lower back 5. Osteoarthritis bilateral hips 6. Osteoarthritis bilateral knees 7. Asthma 8. Hypertensive heart disease 9. Rheumatoid arthritis 10. Anxiety 11. Diabetes type II, non-insulin dependent 12. Bipolar disorder 13. Seizure disorder 14. Restless leg syndrome 15. History of MRSA 16. Generalized anxiety disorder 17. Depressive disorder 18. Prior gastric band with complications, removed 19. Panniculitis POSTOPERATIVE DIAGNOSES: 1. Morbid obesity due to excess calories 2. Body mass index of 40 3. Gastroesophageal reflux disease 4. Osteoarthritis of the lower back 5. Osteoarthritis bilateral hips 6. Osteoarthritis bilateral knees 7. Asthma 8. Hypertensive heart disease 9. Rheumatoid arthritis 10. Anxiety 11. Diabetes type II, non-insulin dependent 12. Bipolar disorder 13. Seizure disorder 14. Restless leg syndrome 15. History of MRSA 16. Generalized anxiety disorder 17. Depressive disorder 18. Prior gastric band with complications, removed 19. Panniculitis 20. Perigastric peritoneal adhesions 21. Hepatomegaly with fatty liver disease OPERATION: 1. Robotic assisted daVinci Xi laparoscopic sleeve gastrectomy with 40-Albanian bougie, multiport. 2. Robotic assisted daVinci Xi laparoscopic lysis of adhesions 2. Intraoperative esophagogastroduodenoscopy. ANESTHESIA: Gen. local anesthetic ESTIMATED BLOOD LOSS: 5 mL SPECIMENS REMOVED: Sleeve gastrectomy COMPLICATIONS: None. FINDINGS: 1. Negative intraoperative esophagogastrojejunoscopy leak test. 2. Hepatomegaly with fatty liver disease 3. Total of 7 staplers used including 1 - 60 mm blue robot staple and 6 - 60 mm green robot loads used to create the gastric sleeve. 4. Sleeve gastrectomy, 28 x 5 cm INDICATIONS: Morena Castro is a 44-year-old female who comes with lifelong morbid obesity. She presents today for sleeve gastrectomy to address her morbid obesity. She has comorbidities including osteoarthritis of the lower back, hips, knees, hypertensive heart disease and diabetes type 2. She has completed all the bariatric requirements including psych assessment, medical risk assessment, bariatric education. At height of 5 feet 8 inches, her ideal body weight is 163 pounds. Her highest weight was 292 pounds. She comes in 260 pounds. All surgical options for morbid obesity had been described using the [place] [facility]ariat[facility] surgery collaborative comorbidity resolution including complication risk score. A second-generation bariatric consent form was described in detail including the possibility of protein malnutrition, leaks, gastric stricture, venous thrombosis, gastroesophageal reflux disease, need for further surgery for which she demonstrated understanding. Benefits and risks of the procedure were described at length. Informed consent was obtained. DESCRIPTION: The patient was brought into the operating room theater. Preoper atively she had received heparin subcutaneously due to Lovenox ALLERGY for DVT prophylaxis. Additionally she had Peridex oral solution as an oral decontaminant. After general induction, the abdomen was prepped and draped in standard sterile fashion. An Ioban draping was placed along the abdomen. A robotic da Mitul Xi system was prepped and primed. Length of her torso from xiphoid to umbilicus is 31 cm. At 15 cm from the xiphoid, proposed port sites were marked with indelible marker along the anterior axillary line bilaterally, mid axillary line bilaterally with each ports were marked 10 to 15 cm from each other. The assistant professor of religion port was marked along the left lateral abdominal wall. The robotic stapler port was marked for the right midclavicular line. A 5 mm 0 degrees laparoscopic trocar entry was performed along the left upper quadrant. The abdomen was insufflated to 15 mmHg pressure was tolerated well. Diagnostic laparoscopy demonstrated no injury to bowel, viscera, or mesentery. No evidence of large hiatus hernia was identified. The liver edge was sharp consistent with 2 week low-carb high-protein diet. A 8 mm port was placed along the left upper abdominal wall after exchanging the 5 mm port. A separate 8 mm port was placed along the left lateral abdominal wall. Please note that the ports were placed at least 20 cm away from the target anatomy. Care was taken to check each robotic arms were safely away from collision with the bed or the patient. At the epigastrium, a medium sized Jonny liver retractor was placed under direct visualization with the Iron Photo Mask Pattern Generator placed under the right shoulder of the patient. Next, 12-mm robot stapler port was placed along the right upper quadrant. The camera 8-mm port was maintained along the epigastrium. The patient was repositioned in reverse Trendelenburg position at 21-degrees after lowering the bed. The robot was docked along the left side of the patient. Using a grasper for arm 4, a vessel sealer for arm 3, including grasper for arm 1, the robotic system was docked and primed as described. Instruments were interchanged by the assistant professor of religion for stapler loads. The camera was placed at 30- degrees down. I had sat at the console. Perigastric adhesions along the upper pole of stomach was identified consistent with previous adjustable gastric band placement. Moderate scarring was identified requiring lysis of adhesions to perform the sleeve gastrectomy. Anti-prolapse stitch was divided. Moderate redundant posterior stomach was identified and freed from its surrounding tissues. The spleen was densely adherent to the stomach. The pylorus was identified and 6 cm proximally along the greater curvature of the stomach, the short gastrics were mobilized upwards to the angle of His using a vessel sealer. Hemostasis was excellent during this portion of the procedure. Next, the upper pole of the stomach was adherent to the left crystal, which was gently dissected free using atraumatic grasper. I went to the head of the bed and placed 40-Albanian blunt bougie into the stomach. The bougie was readjusted by the nurse roof bolter. Robotic stapler green loads 60 mm 6 followed by blue 60 mm x 1 load were used to create the sleeve. Initial firing was across the antrum of the stomach towards the angle of His. The staple line was linear without corkscrewing. The space from the angularis incisura of the sleeve was approximately 4 cm. I then went to the head of the bed to perform the intraoperative esophagogastroduodenoscopy leak test. The bougie was withdrawn. The upper pole of the stomach was bathed using normal saline solution. The scope was withdrawn with careful inspection along the staple line for which no leaks were found along the entire length. Additionally,the sleeve was completely hemostatic without any encroachment along the angularis incisura. Its topology was a soft "J". No stricture was encountered upon placement of the scope. The GI tract was desufflated. The patient tolerated this portion of the procedure well. The scope was completely withdrawn. The robot was undocked. I then rescrubbed into case, whereby the irrigation fluid was aspirated from the abdominal cavity. Tisseel fibrin sealant was placed along the entire staple length. Once dried the Jonny liver retractor was removed. Attention was now brought to removal of the specimen. The distal end of the sleeve gastrectomy specimen was brought out through the 12 mm port at the left upper quadrant. The specimen was gently removed en total. No contamination had occurred during this process. All instruments and pneumoperitoneum including irrigation fluid was removed from the abdominal cavity. The 12 mm port site was closed using 0-Vicryl and Diaz Rosales and irrigated with diluted hydrogen peroxide. The final incisions were closed using subcuticular interrupted suture of 4-0 Monocryl. Exofin was applied to the skin once the skin had been cleansed. OptiFoam dressing was placed along the stomach extraction site. The sleeve specimen was measured and checked also for leaks which none were found. At the end of the procedure, needle, sponge, and instrument count was verified correct by the surgical resident. The patient was taken to the postanesthesia care unit in stable condition. She had tolerated the procedure well. Intraoperative films and findings were reviewed with the patient's family.
[2020-08-03] MEDS: INSULIN ASPART (NovoLOG) 100 UNIT/ML VIAL SQ SCH (19:51)
[2020-08-03] MEDS: acetaZOLAMIDE 250 MG TAB PO SCH (19:52)
[2020-08-03] MEDS: ACETAMINOPHEN IV (For NPO) 1,000 MG in EMPTY BAG 1 BAG IVPB SCH ×2 (19:57→23:50)
[2020-08-03] MEDS: ONDANSETRON 4 MG/2 ML VIAL IVP SCH (19:57)
[2020-08-03] MEDS: DEXAMETHASONE SOD PHOSPHATE 4 MG/ML 1 ML VIAL IV SCH (19:57)
[2020-08-03] MEDS: 0.9% NACL WITH KCL 20 MEQ/L 1,000 ML IV SCH ×2 (19:58→23:52)
[2020-08-03] MEDS: HYOSCYAMINE ORAL DROPS 1.875 MG/15 ML BOTTLE PO SCH ×2 (20:05→23:52)
[2020-08-03] MEDS: SIMETHICONE 40 MG/0.6 ML DROPS 2,000 MG/30 ML BOTTLE PO SCH (20:05)
[2020-08-03] MEDS ORDERED: TEMAZEPAM 15 MG CAP PO SCH (21:00)
[2020-08-03] MEDS ORDERED: MONTELUKAST 10 MG TAB PO SCH (21:00)
[2020-08-03] MEDS ORDERED: lamoTRIgine 100 MG TAB PO SCH (21:00)
[2020-08-03] MEDS ORDERED: PRAZOSIN 1 MG CAP PO SCH (21:00)
[2020-08-03] MEDS: SYMBICORT 160-4.5 MCG INHALER INHALATION SCH (21:19)
[2020-08-03] MEDS: ALBUTEROL NEBULIZED 2.5 MG/3 ML INHALATION SCH (21:21)
[2020-08-03] MEDS: CLINDAMYCIN 900 MG in DEXTROSE 5% IN WATER 50 ML IVPB SCH ×2 (23:52)
[2020-08-04] MEDS: DEXAMETHASONE SOD PHOSPHATE 4 MG/ML 1 ML VIAL IV SCH ×3 (00:03→12:26)
[2020-08-04] MEDS: ONDANSETRON 4 MG/2 ML VIAL IVP SCH ×3 (00:10→12:26)
[2020-08-04] MEDS: SIMETHICONE 40 MG/0.6 ML DROPS 2,000 MG/30 ML BOTTLE PO SCH ×3 (00:10→11:03)
[2020-08-04 00:13] LABS: Glucose,Whole Blood 126 mg/dL (75-99)
[2020-08-04] MEDS: INSULIN ASPART (NovoLOG) 100 UNIT/ML VIAL SQ SCH ×3 (00:15→13:18)
[2020-08-04] MEDS: ACETAMINOPHEN IV (For NPO) 1,000 MG in EMPTY BAG 1 BAG IVPB SCH ×2 (06:10→12:26)
[2020-08-04] MEDS: LACTATED RINGERS 1,000 ML IV SCH (06:10)
[2020-08-04] MEDS: HYOSCYAMINE ORAL DROPS 1.875 MG/15 ML BOTTLE PO SCH ×2 (06:12→11:02)
[2020-08-04] MEDS ORDERED: SODIUM CHLORIDE 0.9% 2,000 ML IV ONE (06:53)
[2020-08-04] MEDS: SYMBICORT 160-4.5 MCG INHALER INHALATION SCH (07:47)
[2020-08-04] MEDS: ALBUTEROL NEBULIZED 2.5 MG/3 ML INHALATION SCH ×3 (07:47→16:33)
[2020-08-04] MEDS ORDERED: 0.9% NACL WITH KCL 20 MEQ/L 1,000 ML IV SCH (08:00)
[2020-08-04] MEDS: acetaZOLAMIDE 250 MG TAB PO SCH (08:00)
[2020-08-04] MEDS: 0.9% NACL WITH KCL 20 MEQ/L 1,000 ML IV SCH (08:22)
[2020-08-04] MEDS ORDERED: PANTOPRAZOLE 40 MG/10 ML VIAL IV SCH (09:00)
[2020-08-04] MEDS ORDERED: METOPROLOL SUCCINATE (ER) 50 MG TAB.ER.24H PO SCH (09:00)
[2020-08-04] MEDS ORDERED: DESVENLAFAXINE SUCCINATE 25 MG PO SCH (09:00)
[2020-08-04] MEDS ORDERED: FONDAPARINUX 2.5 MG/0.5 ML SYRINGE SQ SCH (09:00)
[2020-08-04] MEDS ORDERED: PATIENT'S OWN (Cariprazine Hcl [Vraylar] 1.5 MG Capsule) PO SCH (09:00)
--- NOTE | 2020-08-04 09:14 | P.PN ---
Subjective Progress Note Date: 08/04/20 Clinically doing well. She is passing flatus. No nausea or vomiting. She is pending her UGI. Images from surgery reviewed. Anticipated disposition pending esophagram. Bariatric follow-up for 3 to 4 days. Two liter bolus for dehydration. Objective - Vital Signs Vital signs: Vital Signs Temp 98.4 F 08/04/20 07:47 Pulse 71 08/04/20 07:47 Resp 16 08/04/20 07:47 BP 153/82 08/04/20 07:47 Pulse Ox 98 08/04/20 07:47 Intake & Output 08/03/20 08/04/20 08/04/20 18:59 06:59 18:59 Intake Total 1467 Output Total 5 500 Balance 1462 -500 Weight 118.3 kg Intake: IV 1467 Output: Urine 500 Estimated Blood Loss 5 Other: # Voids 1 - Labs Labs: Abnormal Lab Results - Last 24 Hours (Table) 08/03/20 08/03/20 08/04/20 Range/Units 13:29 17:22 00:12 POC Glucose (mg/dL) 105 H 126 H 126 H (75-99) mg/dL
[2020-08-04] MEDS: CLINDAMYCIN 900 MG in DEXTROSE 5% IN WATER 50 ML IVPB SCH ×2 (09:57)
[2020-08-04] MEDS: metroNIDAZOLE-NS PMX 500 MG in SALINE 1 100ML.BAG IVPB SCH ×2 (10:04→11:02)
--- NOTE | 2020-08-04 10:05 | FL ---
EXAMINATION TYPE: FL UGI DATE OF EXAM: 08/04/2020 LIMITED UGI: CLINICAL HISTORY: Morbid Obesity, history of lap band in the past, gastric sleeve surgery yesterday. TECHNIQUE: Limited UGI-esophagram is performed utilizing 25 oz of Isovue-370. A total of approximate ly 35 seconds of fluoroscopic time was utilized during procedure and 33 images obtained. COMPARISON: Prior esophagram December 06, 2019 FINDINGS: The patient swallowed contrast without difficulty or delay. Esophageal peristalsis and mo tility are within normal limits. There is good flow of contrast along the diaphragmatic hiatus into proximal stomach and subsequent mild delay in flow into gastric sleeve through proximal anastomosis. There is mild delay in flow from distal sleeve and anastomosis into pylorus and duodenal sweep. Patie nt remains asymptomatic. There is no evidence of contrast extravasation to suggest leak. A few episod es of gastroesophageal reflux noted during real-time scanning. Cholecystectomy clips incidentally not ed. IMPRESSION: No evidence of leak or significant obstruction status post recent gastric sleeve surgery.
[2020-08-04 12:34] LABS: Glucose,Whole Blood 123 mg/dL (75-99)
[2020-08-04 13:37] VITALS: BP 133/80; PULSE 60; RESP 17; TEMP 98
[2020-08-04 13:48] VITALS: BMI 39.6
--- NOTE | 2020-08-04 13:49 | P.DS ---
Providers Date of admission: 08/03/20 11:27 Expected date of discharge: 08/04/20 Attending physician: Kathryn Ang Primary care physician: Zari Mayorga Plan - Discharge Summary Discharge Rx Participant: Yes New Discharge Prescriptions: New bisacodyL [Dulcolax] 5 mg PO DAILY PRN #10 tablet. PRN Reason: Constipation Simethicone 40 mg/0.6 ml Drops [Mylicon Drops] 40 mg PO PCHS PRN #30 ml PRN Reason: Gas Omeprazole [PriLOSEC] 40 mg PO DAILY #30 capsule. Ondansetron Odt [Zofran Odt] 4 mg PO Q8HR PRN #9 tab PRN Reason: Nausea Acetaminophen Tab [Tylenol Tab] 1,000 mg PO Q6HR PRN #30 tablet PRN Reason: Pain Continue Omeprazole [PriLOSEC] 20 mg PO AC-BID Metoprolol Succinate (ER) [Toprol XL] 50 mg PO QAM Famotidine [Pepcid] 40 mg PO BID EPINEPHrine [Epipen 2-Macario] 0.3 mg IM ONCE PRN PRN Reason: Anaphylaxis Montelukast [Singulair] 10 mg PO HS Albuterol Inhaler (Mhu) [Ventolin Hfa Inhaler (Mhu)] 1 - 2 puff INHALATION RT-Q6H PRN PRN Reason: Shortness Of Breath LORazepam [Ativan] 1 mg PO DAILY PRN PRN Reason: Anxiety Budesonide/Formoterol Fumarate [Symbicort 160-4.5 Mcg Inhaler] 2 puff INH ALATION RT-BID metFORMIN HCL [Glucophage] 500 mg PO DAILY metFORMIN HCL [Glucophage] 1,000 mg PO HS ondansetron HCL [Zofran] 8 mg PO TID PRN PRN Reason: Nausea Cariprazine HCl [Vraylar] 3 mg PO DAILY Promethazine [Phenergan] 12.5 mg PO Q8HR PRN PRN Reason: Nausea And Vomiting lamoTRIgine [LaMICtal] 300 mg PO HS Prazosin [Minipress] 2 mg PO HS rOPINIRole HCL [Requip] 1.25 mg PO HS acetaZOLAMIDE [Diamox] 500 mg PO BID Desvenlafaxine Succinate [Pristiq] 75 mg PO QAM Temazepam [Restoril] 15 mg PO HS Discontinued metHOTREXate sodium [Methotrexate] 25 mg PO DEVI Folic Acid 1 mg PO DAILY Ergocalciferol [Vitamin D2 (DRISDOL)] 50,000 unit PO WEEKLY Iron 325 mg PO DAILY Atorvastatin [Lipitor] 20 mg PO DAILY Discharge Medication List Albuterol Inhaler (Mhu) [Ventolin Hfa Inhaler (Mhu)] 1 - 2 puff INHALATION RT- Q6H PRN 11/06/17 [History] EPINEPHrine [Epipen 2-Macario] 0.3 mg IM ONCE PRN 11/06/17 [History] Famotidine [Pepcid] 40 mg PO BID 11/06/17 [History] Metoprolol Succinate (ER) [Toprol XL] 50 mg PO QAM 11/06/17 [History] Montelukast [Singulair] 10 mg PO HS 11/06/17 [History] Omeprazole [PriLOSEC] 20 mg PO AC-BID 11/06/17 [History] Budesonide/Formoterol Fumarate [Symbicort 160-4.5 Mcg Inhaler] 2 puff INHALATION RT-BID 11/18/18 [History] LORazepam [Ativan] 1 mg PO DAILY PRN 11/18/18 [History] metFORMIN HCL [Glucophage] 1,000 mg PO HS 11/18/18 [History] metFORMIN HCL [Glucophage] 500 mg PO DAILY 11/18/18 [History] ondansetron HCL [Zofran] 8 mg PO TID PRN 11/18/18 [History] Cariprazine HCl [Vraylar] 3 mg PO DAILY 04/22/19 [History] Prazosin [Minipress] 2 mg PO HS 04/22/19 [History] Promethazine [Phenergan] 12.5 mg PO Q8HR PRN 04/22/19 [History] lamoTRIgine [LaMICtal] 300 mg PO HS 04/22/19 [History] rOPINIRole HCL [Requip] 1.25 mg PO HS 04/22/19 [History] acetaZOLAMIDE [Diamox] 500 mg PO BID 11/14/19 [History] Desvenlafaxine Succinate [Pristiq] 75 mg PO QAM 01/02/20 [History] Temazepam [Restoril] 15 mg PO HS 03/16/20 [History] Acetaminophen Tab [Tylenol Tab] 1,000 mg PO Q6HR PRN #30 tablet 08/04/20 [Rx] Omeprazole [PriLOSEC] 40 mg PO DAILY #30 capsule. 08/04/20 [Rx] Ondansetron Odt [Zofran Odt] 4 mg PO Q8HR PRN #9 tab 08/04/20 [Rx] Simethicone 40 mg/0.6 ml Drops [Mylicon Drops] 40 mg PO PCHS PRN #30 ml 08/04/20 [Rx] bisacodyL [Dulcolax] 5 mg PO DAILY PRN #10 tablet. 08/04/20 [Rx] [place] [facility](s[facility] 10:00 am Patient Instructions/Handouts: Nutrition after Bariatric Surgery (DC), Laparoscopic Sleeve Gastrectomy (DC) Activity/Diet/Wound Care/Special Instructions: Liquid diet only for 2 weeks until August 17 No lifting over 4 pounds in 4 weeks, August 03August Shower. No soaking in bath tubs, until August 17, 2 weeks. Please notify your surgeon if you develop nausea and vomiting including new onset of abdominal pain. Continue to use incentive spirometry to prevent pneumonias. Please continue to ambulate at home to prevent blood clots in legs. You have new prescriptions at your local pharmacy. Follow-up at the bariatric center. May shower. Dressings to be discontinued by surgeon in the office. Drink 64 oz of fluid daily. Start protein shakes on . Notify bariatric center for temp over 101.0, increased pain, drainage from incisions. No straws or carbonated beverages. Liquid diet only. Sugar content should be less than 6 g to avoid dumping syndrome. Take MOM for constipation. CRUSH, OPEN, OR CUT TABLETS LARGER THAN A SIZE OF A TIC TAC Discharge Disposition: HOME SELF-CARE
[2020-08-04 14:53] LABS: Basophils % (A) 0 %; Eosinophils % (A) 0 %; HCT 41.7 % (34.0-46.0); HGB 14.7 gm/dL (11.4-16.0); Lymphocytes # (A) 0.8 k/uL (1.0-4.8); Lymphocytes % (A) 9 %; MCH 32.4 pg (25.0-35.0); MCHC 35.2 g/dL (31.0-37.0); MCV 91.9 fL (80.0-100.0); Mean Platelet Volume 7.9; Monocytes # (A) 0.6 k/uL (0-1.0); Monocytes % (A) 7 %; Neutrophils % (A) 82 %; Platelet Count 154 k/uL (150-450); RBC 4.54 m/uL (3.80-5.40); RDW 12.6 % (11.5-15.5); WBC 8.5 k/uL (3.8-10.6)
[2020-08-04 15:08] LABS: African American GFR (CKD) >90 (>60 ml/min/1.73 sqM); Anion Gap 10 mmol/L; Blood Urea Nitrogen 8 mg/dL (7-17); Calcium 8.5 mg/dL (8.4-10.2); Carbon Dioxide 17 mmol/L (22-30); Chloride 111 mmol/L (98-107); Magnesium 1.9 mg/dL (1.6-2.3); Non-African American GFR(CKD) >90 (>60 ml/min/1.73 sqM); Phosphorus 2.5 mg/dL (2.5-4.5); Potassium 3.8 mmol/L (3.5-5.1); Sodium 138 mmol/L (137-145)
[2020-08-04 17:08] LABS: Basophils # (A) 0.01 X 10*3/uL (0.00-0.10); Basophils % (A) 0.1 %; Eosinophils # (A) 0 X 10*3/uL (0.04-0.35); Eosinophils % (A) 0 %; HCT 44.5 % (37.2-46.3); HGB 14.7 g/dL (12.0-15.0); Lymphocytes # (A) 0.66 X 10*3/uL (0.90-5.00); Lymphocytes % (A) 7.8 %; MCH 31.3 pg (27.0-32.0); MCV 94.7 fL (80.0-97.0); Mean Platelet Volume 11.4 fL (9.5-12.2); Monocytes % (A) 5.9 %; Neutrophils # (A) 7.29 X 10*3/uL (1.80-7.70); Neutrophils % (A) 85.7 %; Platelet Count 175 X 10*3/uL (140-440); RDW 12.3 % (11.5-14.5)
[2020-08-04 17:36] LABS: African American GFR (CKD) 103.2 (60.0-200.0); Anion Gap 8.7 mmol/L (4.00-12.00); Calcium 8.8 mg/dL (8.7-10.3); Carbon Dioxide 17.3 mmol/L (21.6-31.8); Magnesium 2.1 mg/dL (1.5-2.4); Potassium 4.2 mmol/L (3.5-5.5)
[2020-08-05] MEDS ORDERED: bisacodyL 5 MG TABLET.DR PO PRN (08:00)
== END 2020-08-04 18:19 | disposition home or self-care (01) | DRG 621 ==
LOC: 2ORMAIN 11:27 → 4SSUR 16:51
PROVIDERS: ADMIT Surgery Plastic and Reconstructive Surgery; ATTEND Surgery Plastic and Reconstructive Surgery
PROC: 8E0W4CZ Robotic Assisted Procedure of Trunk Region, Percutaneous Endoscopic Approach (ICD-10-PCS; principal; 2020-08-03 12:35)
PROC: 0DB64Z3 Excision of Stomach, Percutaneous Endoscopic Approach, Vertical (ICD-10-PCS; principal; 2020-08-03 12:35)
PROC: 0DJ08ZZ Inspection of Upper Intestinal Tract, Via Natural or Artificial Opening Endoscopic (ICD-10-PCS; principal; 2020-08-03 12:35)
PROC: 0DN64ZZ Release Stomach, Percutaneous Endoscopic Approach (ICD-10-PCS; principal; 2020-08-03 12:35)
DX: E66.01 Morbid (severe) obesity due to excess calories (principal); R16.0 Hepatomegaly, not elsewhere classified; K76.0 Fatty (change of) liver, not elsewhere classified; M06.9 Rheumatoid arthritis, unspecified; F31.9 Bipolar disorder, unspecified; G40.909 Epilepsy, unspecified, not intractable, without status epilepticus; E11.9 Type 2 diabetes mellitus without complications; Z20.822 Contact with and (suspected) exposure to COVID-19; Z68.39 Body mass index [BMI] 39.0-39.9, adult; K66.0 Peritoneal adhesions (postprocedural) (postinfection); E86.0 Dehydration; K76.9 Liver disease, unspecified; K21.9 Gastro-esophageal reflux disease without esophagitis; M47.9 Spondylosis, unspecified; M16.0 Bilateral primary osteoarthritis of hip; M17.0 Bilateral primary osteoarthritis of knee; I11.9 Hypertensive heart disease without heart failure; G25.81 Restless legs syndrome; L40.9 Psoriasis, unspecified; E28.2 Polycystic ovarian syndrome; G93.2 Benign intracranial hypertension; G43.909 Migraine, unspecified, not intractable, without status migrainosus; F41.1 Generalized anxiety disorder; J45.909 Unspecified asthma, uncomplicated; Z90.49 Acquired absence of other specified parts of digestive tract; Z87.19 Personal history of other diseases of the digestive system; Z86.14 Personal history of Methicillin resistant Staphylococcus aureus infection; Z87.2 Personal history of diseases of the skin and subcutaneous tissue; Z98.891 History of uterine scar from previous surgery; Z90.89 Acquired absence of other organs; Z87.42 Personal history of other diseases of the female genital tract; Z87.39 Personal history of other diseases of the musculoskeletal system and connective tissue; Z98.51 Tubal ligation status; Z98.890 Other specified postprocedural states; Z79.51 Long term (current) use of inhaled steroids; Z79.84 Long term (current) use of oral hypoglycemic drugs; Z79.899 Other long term (current) drug therapy; Z71.3 Dietary counseling and surveillance; Z88.1 Allergy status to other antibiotic agents; Z91.040 Latex allergy status; Z88.5 Allergy status to narcotic agent; Z88.8 Allergy status to other drugs, medicaments and biological substances; Z91.018 Allergy to other foods; Z83.49 Family history of other endocrine, nutritional and metabolic diseases; Z82.5 Family history of asthma and other chronic lower respiratory diseases; Z82.49 Family history of ischemic heart disease and other diseases of the circulatory system
CPT/HCPCS: 64999; 74240; 80051; 81025; 82310; 82565; 83735; 84100; 84520; 85025; 86850; 86900; 86901; 87635; 88307; 94640

== ENCOUNTER → 2020-08-07 | Outpatient (CLI) | payer OTHER, MEDICARE ==
[2020-08-07 10:51] VITALS: BP 145/82; PULSE 66; TEMP 98.2; BMI 38.7
== END ==
LOC: BARWHC3 09:40
PROVIDERS: ATTEND Surgery Plastic and Reconstructive Surgery
DX: Z09 Encounter for follow-up examination after completed treatment for conditions other than malignant neoplasm (principal); Z98.84 Bariatric surgery status; Z88.1 Allergy status to other antibiotic agents; Z88.5 Allergy status to narcotic agent; Z88.8 Allergy status to other drugs, medicaments and biological substances; Z91.040 Latex allergy status; Z91.018 Allergy to other foods
CPT/HCPCS: 99211

== ENCOUNTER → 2020-08-12 | Outpatient (CLI) | payer OTHER, MEDICARE ==
--- NOTE | 2020-08-12 16:27 | P.PN ---
Subjective Progress Note Date: 08/12/20 She is post op 1 week. She had fluids. No nausea. No GERD. Protein 3x daily being performed.
[2020-08-12 16:35] VITALS: BP 135/80; PULSE 82; TEMP 97.7; BMI 38.6
== END ==
LOC: BARWHC3 15:09
PROVIDERS: ATTEND Surgery Plastic and Reconstructive Surgery
DX: E66.01 Morbid (severe) obesity due to excess calories (principal); J20.9 Acute bronchitis, unspecified; F31.9 Bipolar disorder, unspecified; I11.9 Hypertensive heart disease without heart failure; E11.9 Type 2 diabetes mellitus without complications; Z71.3 Dietary counseling and surveillance; Z68.38 Body mass index [BMI] 38.0-38.9, adult; Z79.899 Other long term (current) drug therapy
CPT/HCPCS: 97803; 99211

== ENCOUNTER → 2020-09-02 | Outpatient (CLI) | payer OTHER, MEDICARE ==
[2020-09-02 14:27] VITALS: BP 127/84; PULSE 59; RESP 18; TEMP 98.3; BMI 37.3
--- NOTE | 2020-09-02 14:53 | P.PN ---
Subjective Progress Note Date: 09/02/20 She has PCOS. She is 1 month out. No GERD. No belly pain. She is getting 65 to 90 grams proteins. She needs to walk more. Reviewed exercises such as squat. Muscle building exercise. Blood work. Start MVI. Follow October. Objective - Vital Signs Vital signs: Vital Signs Temp 98.3 F 09/02/20 14:20 Pulse 59 L 09/02/20 14:20 Resp 18 09/02/20 14:20 BP 127/84 09/02/20 14:20 Pulse Ox Intake & Output 09/01/20 09/02/20 09/02/20 18:59 06:59 18:59 Weight 111.312 kg
[2020-09-02 16:03] LABS: HCT 45.9 % (34.0-46.0); HGB 16.2 gm/dL (11.4-16.0); MCH 32.5 pg (25.0-35.0); MCHC 35.2 g/dL (31.0-37.0); MCV 92.4 fL (80.0-100.0); Mean Platelet Volume 8.4; Platelet Count 164 k/uL (150-450); RBC 4.97 m/uL (3.80-5.40); RDW 12.5 % (11.5-15.5); WBC 5.3 k/uL (3.8-10.6)
[2020-09-03 01:02] LABS: Hemoglobin A1C 4.9 % (4.0-6.0)
[2020-09-03 05:13] LABS: Partial Thromboplastin Time 31.3 sec (23.5-31.0); Prothrombin Time 10.9 sec (9.9-11.9)
[2020-09-03 14:20] LABS: % Iron Saturation 19.33 (12.00-45.00); African American GFR (CKD) 127.6 (60.0-200.0); Albumin 4.6 g/dL (3.80-4.90); Albumin/Globulin Ratio 2.19 (1.60-3.17); Anion Gap 9.2 mmol/L (4.00-12.00); Calcium 9.6 mg/dL (8.7-10.3); Carbon Dioxide 26.8 mmol/L (21.6-31.8); Chol/HDL Ratio 4.72; Globulin 2.1 g/dL (1.6-3.3); LDL Cholesterol,Calculated 117.4 mg/dL (0.0-131.0); Magnesium 1.9 mg/dL (1.5-2.4); Non-African American GFR(CKD) 110.1 (60.0-200.0); Potassium 3.6 mmol/L (3.5-5.5); Total Bilirubin 0.7 mg/dL (0.3-1.2); Total Protein 6.7 g/dL (6.2-8.2); VLDL Calculation 16.6 mg/dL (5.00-40.00)
[2020-09-03 16:16] LABS: Zinc, Serum 62 ug/dL (60-130)
[2020-09-04 07:03] LABS: Vit B1(Thiamine) 54 ug/L (38-122)
[2020-09-04 07:20] LABS: Vitamin A 23 ug/dL (38-106)
== END ==
LOC: BARWHC3 13:50
PROVIDERS: ATTEND Surgery Plastic and Reconstructive Surgery
DX: E66.01 Morbid (severe) obesity due to excess calories (principal); E89.1 Postprocedural hypoinsulinemia; D50.8 Other iron deficiency anemias; E44.0 Moderate protein-calorie malnutrition; E55.9 Vitamin D deficiency, unspecified; K74.1 Hepatic sclerosis; Z71.3 Dietary counseling and surveillance; N19 Unspecified kidney failure; K50.90 Crohn's disease, unspecified, without complications; Z68.37 Body mass index [BMI] 37.0-37.9, adult; Z88.1 Allergy status to other antibiotic agents; Z88.5 Allergy status to narcotic agent; Z91.018 Allergy to other foods; Z91.040 Latex allergy status; Z88.8 Allergy status to other drugs, medicaments and biological substances
CPT/HCPCS: 80053; 80061; 82306; 82525; 82607; 82728; 82746; 83036; 83540; 83550; 83735; 83970; 84100; 84134; 84255; 84425; 84443; 84590; 84630; 85027; 85610; 85730; 97803; 99211

== ENCOUNTER → 2021-02-17 | Outpatient (CLI) | payer OTHER, MEDICARE ==
[2021-02-17 13:28] VITALS: BMI 31.6
[2021-02-17 13:52] VITALS: BP 136/85; PULSE 56; RESP 18; TEMP 98.1
--- NOTE | 2021-02-17 13:56 | P.BASOAP ---
Subjective Progress Note Date: 02/17/21 She comes in feeling well. No issues with dysphagia. No GERD. Medications not altered. Looking into PCOS. She wants to get under 200 pounds. Emphasis fun activity. Lab ordered. Last blood work in October. Objective - Vital Signs Vital signs: Vital Signs Temp 98.1 F 02/17/21 13:48 Pulse 56 L 02/17/21 13:48 Resp 18 02/17/21 13:48 BP 136/85 02/17/21 13:48 Pulse Ox Intake & Output 02/16/21 02/17/21 02/17/21 18:59 06:59 18:59 Weight 94.347 kg Assessment/Plan Plan: Date: 02/17/21 Initial Weight: 121.676 kg Initial BMI: 40.8 Current Weight: 94.347 kg Current BMI: 31.6 Type of Surgery: Total Volume in Band: Previous Volume: Volume Removed: Volume Added: Band Size:
[2021-02-17 14:33] LABS: HCT 43.2 % (34.0-46.0); HGB 14.9 gm/dL (11.4-16.0); MCH 32.5 pg (25.0-35.0); MCHC 34.5 g/dL (31.0-37.0); MCV 94.3 fL (80.0-100.0); Mean Platelet Volume 7.7; Platelet Count 206 k/uL (150-450); RBC 4.59 m/uL (3.80-5.40); RDW 13.1 % (11.5-15.5); WBC 5.1 k/uL (3.8-10.6)
[2021-02-17 20:29] LABS: Partial Thromboplastin Time 26.5 sec (22.0-30.0); Prothrombin Time 10.4 sec (9.0-12.0)
[2021-02-18 01:12] LABS: Chol/HDL Ratio 2.34 Ratio; Ferritin 82.4 ng/mL (10.0-291.0); LDL Cholesterol,Calculated 58.8 mg/dL (0.0-131.0); Magnesium 2.1 mg/dL (1.5-2.4); VLDL Calculation 12.82 mg/dL (5.00-40.00)
[2021-02-18 01:13] LABS: ALT 19 U/L (8-44); AST 15 U/L (13-35); African American GFR (CKD) 121.5 (60.0-200.0); Albumin 4.6 g/dL (3.8-4.9); Albumin/Globulin Ratio 2.18 (1.60-3.17); Alkaline Phosphatase 117 U/L (41-126); BUN/Creat Ratio 15.69 Ratio (12.00-20.00); Blood Urea Nitrogen 10.7 mg/dL (9.0-27.0); Calcium 8.9 mg/dL (8.7-10.3); Carbon Dioxide 18.1 mmol/L (21.6-31.8); Chloride 108 mmol/L (96-109); Globulin 2.1 g/dL (1.6-3.3); Glucose 97 mg/dL (70-110); Iron 56 ug/dL (50-170); Non-African American GFR(CKD) 104.8 (60.0-200.0); Potassium 4.1 mmol/L (3.5-5.5); Prealbumin 18.7 mg/dL (18.0-42.0); Sodium 138 mmol/L (135-145); Total Iron Binding Capacity 336 ug/dL (228-460); Total Protein 6.7 g/dL (6.2-8.2)
[2021-02-18 12:53] LABS: Zinc, Serum 68 ug/dL (60-130)
[2021-02-19 06:22] LABS: Vit B1(Thiamine) 52 ug/L (38-122); Vitamin A 31 ug/dL (38-106)
== END | disposition home or self-care (01) ==
LOC: BARWHC3 12:41
PROVIDERS: ATTEND Surgery Plastic and Reconstructive Surgery
DX: E66.01 Morbid (severe) obesity due to excess calories (principal); E89.1 Postprocedural hypoinsulinemia; D50.8 Other iron deficiency anemias; E44.0 Moderate protein-calorie malnutrition; E55.9 Vitamin D deficiency, unspecified; K74.1 Hepatic sclerosis; N19 Unspecified kidney failure; K50.90 Crohn's disease, unspecified, without complications; Z71.3 Dietary counseling and surveillance
CPT/HCPCS: 80053; 80061; 82306; 82525; 82607; 82728; 82746; 83036; 83540; 83550; 83735; 83970; 84100; 84134; 84255; 84425; 84443; 84590; 84630; 85027; 85610; 85730; 97803; 99211

== ENCOUNTER → 2023-05-26 | Outpatient (CLI) | payer OTHER, MEDICARE ==
--- NOTE | 2023-05-26 21:04 | CT ---
EXAMINATION TYPE: CT soft tissue neck w con CT DLP: 970 mGycm, Automated exposure control for dose reduction was used. DATE OF EXAM: 05/26/2023 4:45 PM COMPARISON: None. CLINICAL INDICATION:Female, 47 years old with history of R06.1 STRIDOR; PHH, pt gradually losing voic e. pain on right side, no lumps TECHNIQUE: Standard enhanced CT of the neck. Axial sections with coronal and sagittal reformats were obtained. Contrast used:100ml mL of Isovue 300 with IV Contrast, (None if empty) Oral contrast used: (None if empty) FINDINGS: Brain: Visualized portions are grossly unremarkable. Orbits: Unremarkable Sinuses: Grossly unremarkable. Spaces of the neck: Clear and symmetric. The larynx and the airway appear within normal limits with s ymmetrical appearance. Musculoskeletal: No acute osseous pathology. Lymph nodes: Multiple nonenlarged lymph nodes are seen along both anterior chains of the neck. Vascular structures: Visualized major arteries are patent without evidence of aneurysm. Thoracic Inlet/airway: Airway is patent. No heart is mildly enlarged for size. No evidence for medias tinal mass. Soft tissues/Thyroid: Thyroid and remainder of the soft tissues are unremarkable. Other: none. IMPRESSION Symmetric appearance of the larynx no masses definitively visualized on CT imaging. No evidence for l ymphadenopathy.
== END | disposition home or self-care (01) ==
LOC: RADCTMAIN 16:03
PROVIDERS: ATTEND Internal Medicine
DX: R06.1 Stridor (principal)
CPT/HCPCS: 70491; Q9967

== ENCOUNTER 2023-08-16 11:08 | Day surgery (SDC) | payer OTHER, MEDICARE ==
[2023-08-10 15:59] VITALS: BMI 41.3
[~2023-08-16 11:08] MED LIST changes: -CHLORHEXIDINE GLUCONATE 15 ML CUP MUCOUS MEM PRN; -CLINDAMYCIN 900 MG in DEXTROSE 5% IN WATER 50 ML IVPB PRN; -DEXAMETHASONE SOD PHOSPHATE 4 MG/ML 1 ML VIAL IV ONE; -GENTAMICIN 440 MG in SODIUM CHLORIDE 0.9% 100 ML IVPB PRN; +LACTATED RINGERS 1,000 ML IV SCH; -LIDOCAINE 1% (10MG/ML) FOR IV START INTRADERMA PRN; -ONDANSETRON 4 MG/2 ML VIAL IVP ONE; -PANTOPRAZOLE 40 MG/10 ML VIAL IVP PRN; -SCOPOLAMINE 1.5MG/72HR PATCH TRANSDERM ONE; -ceFAZolin 3 GM in SODIUM CHLORIDE 0.9% 100 ML IVPB PRN; -fentaNYL (PF) 50 MCG/ML 2 ML AMP IV PRN
[2023-08-16] MEDS: LACTATED RINGERS 1,000 ML IV ONE ×2 (11:20→12:08)
[2023-08-16] MEDS: MIDAZOLAM 2 MG/2 ML VIAL IVP ONE (11:45)
[2023-08-16 12:09] VITALS: RESP 16; TEMP 98.2
[2023-08-16] MEDS ORDERED: fentaNYL (PF) 50 MCG/ML 2 ML AMP ONE (12:09)
[2023-08-16] MEDS ORDERED: KETAMINE HCL IN 0.9 % NACL 50 MG/5 ML SYRINGE ONE (12:09)
[2023-08-16] MEDS ORDERED: LIDOCAINE 1% INJ 10MG/ML (20 ML MDV) ONE (12:09)
[2023-08-16] MEDS ORDERED: MIDAZOLAM 2 MG/2 ML VIAL ONE (12:09)
[2023-08-16] MEDS ORDERED: PROPOFOL 10 MG/ML 20 ML VIAL IV ONE (12:09)
[2023-08-16] MEDS: LIDOCAINE 2% INJ 20 MG/ML INTRATRACH ONE (12:27)
[2023-08-16] MEDS: IV FLUID CONTINUATION 1,000 ML IV ONE (12:38)
[2023-08-16 13:41] VITALS: BP 125/88; PULSE 77
--- NOTE | 2023-08-16 14:10 | OP ---
OPERATIVE REPORT DATE OF SERVICE : OPERATIVE PROCEDURES: Bronchoscopy and bronchial washings/random. PREOPERATIVE DIAGNOSES: Chronic intermittent cough and chronic dysphonia/aphonia. 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 ANESTHESIA USED: IV conscious sedation. DESCRIPTION OF PROCEDURE: The patient was prepared according to the bronchoscopy protocol. She was brought in to the bronchoscopy suite, O2 was applied via Ventimask. We monitored her O2 saturation continuously, blood pressure was intermittently monitored, and cardiac rhythm was continuously monitored. After adequate IV conscious sedation, a few mL of lidocaine were instilled into the left naris, and the bronchoscope was advanced through the left naris down to the area of the vocal cords. The vocal cords were visualized clearly, and there is clearly evidence of slight weakness in the left vocal cord in the process of adduction. However, the right vocal cord seems to be more mobile in adduction and abduction process. Again, the left vocal cord was noted to be clearly not as active as the right vocal cord. Pictures were taken of the vocal cords, then lidocaine was applied over the vocal cords, and the bronchoscope was advanced further down to the trachea. There was minimal tracheomalacia, not severe enough to explain her symptoms. However, the airways were noted to be bronchial, and random. Bronchial washing was done from the trachea, right upper lobe, right middle lobe, right lower lobe, left upper lobe lingula and left lower lobe. No evidence of any endobronchial tumors. The procedure was well tolerated, no evidence of any immediate complications. The fluid which was obtained was sent for different diagnostic studies. Pictures of the vocal cords were taken, and will likely recommend ENT evaluation of the left vocal cord on outpatient basis. MMODL / IJN: [id number] /
[2023-08-18 05:49] LABS: Appearance,BF Slightly Hazy (Clear); RBC, Body Fluid 184 /UL (0-2000)
[2023-08-18 12:24] LABS: Nucleated Cells, Body Fluid 6 /UL
== END 2023-08-16 13:33 | disposition home or self-care (01) ==
LOC: ORWHC2ENDO 11:08
PROVIDERS: ATTEND Internal Medicine
DX: J39.8 Other specified diseases of upper respiratory tract (principal); J45.909 Unspecified asthma, uncomplicated; E66.01 Morbid (severe) obesity due to excess calories; F31.9 Bipolar disorder, unspecified; K21.9 Gastro-esophageal reflux disease without esophagitis; F17.210 Nicotine dependence, cigarettes, uncomplicated; Z79.899 Other long term (current) drug therapy; Z91.040 Latex allergy status; Z88.8 Allergy status to other drugs, medicaments and biological substances
CPT/HCPCS: 81025; 87798 ×3; 87496; 87498; 87529; 88108; 88305; 89050; 87502; 87634; 87070; 87205; 87116; 87102; 87206; 87635; 31624; J2001 ×2; J2250; J3010; J2704

== ENCOUNTER 2023-08-25 08:15 | Day surgery (SDC) | payer OTHER, MEDICARE ==
[2023-08-21 14:16] VITALS: BMI 40.7
[~2023-08-25 08:15] MED LIST changes: -LACTATED RINGERS 1,000 ML IV SCH; +fentaNYL (PF) 50 MCG/ML 2 ML AMP IV PRN
[2023-08-25] MEDS: LACTATED RINGERS 1,000 ML IV SCH (08:38)
[2023-08-25] MEDS: DEXAMETHASONE SOD PHOSPHATE 4 MG/ML 1 ML VIAL IV ONE (08:53)
[2023-08-25] MEDS: ONDANSETRON 4 MG/2 ML VIAL IVP ONE (08:53)
[2023-08-25] MEDS: fentaNYL (PF) 50 MCG/ML 2 ML AMP IVP ONE (09:12)
[2023-08-25] MEDS: MIDAZOLAM 2 MG/2 ML VIAL IVP ONE (09:12)
[2023-08-25 09:32] VITALS: TEMP 97
--- NOTE | 2023-08-25 09:45 | P.ANPRN ---
Procedure Note - Anesthesia - Nerve Block Performed Left Popliteal Single Time Out Performed: Yes (910) Date of Procedure: 08/25/23 Procedure Start Time: 09:12 Procedure Stop Time: 09:16 Location of Patient: PreOp Indication: Acute Post-Operative Pain, Requested by Surgeon Specifically requested for management of pain by DrJese: Mahamed Gore Sedation Type: Sedate with meaningful contact maintained Preparation: Sterile Prep Position: Right Lateral Catheter: None Needle Types: Pajunk Needle Gauge: 21 Ultrasound used to visualize needle placement: Yes Ultrasound used to observe medication spread: Yes Injectate: 0.5% Ropivacaine (see comment for volume) (20cc+ 10cc nacl pf) Blood Aspirated: No Pain Paresthesia on Injection Noted: No Resistance on Injection: Normal Image Stored and Saved: Yes Events: Uneventful and Well Tolerated
--- NOTE | 2023-08-25 09:46 | P.ANPRN ---
Procedure Note - Anesthesia - Nerve Block Performed Left Adductor Canal Single Time Out Performed: Yes (0911) Date of Procedure: 08/25/23 Procedure Start Time: Procedure Stop Time: : Location of Patient: PreOp Indication: Acute Post-Operative Pain, Requested by Surgeon Specifically requested for management of pain by DrJese: Mahamed Gore Sedation Type: Sedate with meaningful contact maintained Preparation: Sterile Prep Position: Supine Catheter: None Needle Types: Pajunk Needle Gauge: 21 Ultrasound used to visualize needle placement: Yes Ultrasound used to observe medication spread: Yes Injectate: 0.5% Ropivacaine (see comment for volume) (20cc+10cc ncal pf) Blood Aspirated: No Pain Paresthesia on Injection Noted: No Resistance on Injection: Normal Image Stored and Saved: Yes Events: Uneventful and Well Tolerated
[2023-08-25] MEDS ORDERED: SODIUM CHLORIDE 0.9% (PF) 10 ML VIAL ONE (10:09)
[2023-08-25] MEDS ORDERED: fentaNYL (PF) 50 MCG/ML 2 ML AMP ONE (10:09)
[2023-08-25] MEDS ORDERED: KETAMINE HCL IN 0.9 % NACL 50 MG/5 ML SYRINGE ONE (10:09)
[2023-08-25] MEDS ORDERED: PROPOFOL 10 MG/ML 20 ML VIAL IV ONE (10:09)
[2023-08-25] MEDS ORDERED: SUCCINYLCHOLINE CHLORIDE 200 MG/10 ML VIAL IV ONE (10:09)
[2023-08-25] MEDS ORDERED: LIDOCAINE 1% INJ 10MG/ML (20 ML MDV) ONE (10:09)
[2023-08-25] MEDS ORDERED: ROPIVACAINE 5 MG/ML 30 ML VIAL ONE (10:09)
[2023-08-25] MEDS ORDERED: MIDAZOLAM 2 MG/2 ML VIAL ONE (10:09)
[2023-08-25] MEDS: LACTATED RINGERS 1,000 ML IV ONE (10:20)
--- NOTE | 2023-08-25 11:59 | XR ---
EXAMINATION TYPE: XR ankle complete LT, FL guidance operating room Intraoperative/procedural fluorosc opic services were provided. Total fluoroscopy time is 59.7 seconds with a total of 3 submitted image s to PACS. Please see the operative/procedural note for further details. DAP: [id number] mGym2
--- NOTE | 2023-08-25 12:03 | P.OP ---
Date of Procedure: 08/25/23 Preoperative Diagnosis: 1. Posttraumatic arthritis left subtalar joint 2. Retained hardware left ankle Postoperative Diagnosis: posttraumatic arthritis left subtalar joint Procedure(s) Performed: subtalar joint arthrodesis left foot Implants: 7.0 MM CREED screws x 2 Medline allograft Anesthesia: MARJORIEA Surgeon: Mahamed Gore Estimated Blood Loss (ml): 5 Pathology: none sent Condition: stable Disposition: PACU Description of Procedure: Prior to the patient being brought to the operative room, anesthesia administered a nerve block and left lower extremity. Then the patient was brought into the operating room and placed on the table in the supine position. Timeout was taken to confirm correct patient identifiers, correct lateral body of surgery, and correct procedure. Once all staff in the room were in agreement timeout, the patient was induced and placed under general anesthesia. A well- padded tourniquet was placed on the left thigh and a wedge underneath the left hip to internally rotate the left leg. The left leg was then prepped and draped in usual manner. The left leg was exsanguinated, the knee flexed, and the tourniquet inflated to 250 mmHg. Fluoroscopy was used to identify the screw that needed to be removed from the plate prior to the primary procedure. A skin jian was made in the area of the screw, and then incision was made. The incision was bluntly dissected down to the tibialis anterior/extensor hallucis longus tendon sheath. The soft tissue was incised medial to the tendons so that they could be retracted safely. Then dissection was continued down to level of the screw. The screwdriver was used to engage the screw and when the screw was attempted to be removed, the head fractured. The decision was made to leave the screw in place and performed a primary procedure. Attention was directed over the sinus tarsi, where a curvilinear incision was made. The incision was deepened down to the subcutaneous tissue careful to identify, avoid, and retract any neurovascular structures and cauterize any bleeding vessels. Dissection was carried through the subcutaneous layer down to the joint capsule over the anterior/lateral subtalar joint. The capsules fully incised, the lateral ligaments released, and the interosseous ligament released. An osteotome was inserted so that the joint surfaces could be distracted. 2 pins for the distractor placed in the calcaneus and the talus. The distractor was placed over the wires and used to distract the joint. A 4 mm wedge bur was used to remove the articular cartilage as well as the subchondral bone on the conjoining surfaces of the talus and the calcaneus. Once adequate joint prepped was completed, a 2.4 mm drill bit was used to aggressively fenestrate the conjoining surfaces of the arthrodesis site. Then a small osteotome was used to fish scale the surfaces also. 10 mL of allograft was then placed between the arthrodesis segments. The distractor and pins were removed. The subtalar joint was held in neutral alignment and a guidewire for a 7.0 mm cannulated screw was inserted on the posterior aspect of the calcaneus just lateral to the midline. The wire was angled anteriorly and slightly medially across the subtalar joint and enter into the talar body. Fluoroscopy confirmed the proper placed in the wire on AP and lateral views. A small stab incision was made around the skin where the wire entered, and then a 7.0 mm cannulated screw was inserted and advanced under power until the head engaged the bone of the calcaneus. Imaging showed that there was excellent compression across the arthrodesis site and the screw was properly aligned. A second wire was then placed just inferior to the first. The suture directory of the wire was anterior to dorsal muscle that it wouldn't go with into the talar neck. Fluoroscopy confirmed the proper placement of the wire on AP and lateral views. A small stab incision was made through the skin around the wire, and then a 7.0 mm cannulated screw was inserted under power and advanced until the small threads engaged the bone of the calcaneus. Final fluoroscopic imaging showed proper placement of hardware as well as excellent bony contact at the arthrodesis site. Visually there was no gapping at the subtalar joint. All wounds were thoroughly irrigated with antibiotic saline. Deep closure on the sinus tarsi incision was done with 0 Vicryl. Subcutaneous closure was done with 3-0 Vicryl and 4-0 Monocryl. The anterior incision for the screw removal was closed with 4-0 Monocryl. Skin for the sinus tarsi incision was closed with 4-o Stratafix in a running subcuticular manner. Dermal glue was applied over all incisions including the 2 in the posterior aspect of the heel. Once glue was dried, Steri-Strips are placed across the incisions. An Arthrex jumpstart dressing was placed over all incisions, a bulky dry dressings applied to left foot and ankle. The tourniquet was released and capillary refill return to all digits on left foot. Patient's placed a well-padded, well molded plaster posterior mold/sugar tong splint. The patient tolerated above procedure and anesthesia well. The patient went to recovery vital signs stable.
[2023-08-25 12:25] VITALS: RESP 16
[2023-08-25 13:23] VITALS: BP 125/85; PULSE 82
== END 2023-08-25 13:30 | disposition home or self-care (01) ==
LOC: OR 08:15
PROVIDERS: ATTEND Podiatrist
DX: M19.172 Post-traumatic osteoarthritis, left ankle and foot (principal); G89.18 Other acute postprocedural pain; E78.5 Hyperlipidemia, unspecified; G43.909 Migraine, unspecified, not intractable, without status migrainosus; F32.A Depression, unspecified; J45.909 Unspecified asthma, uncomplicated; K21.9 Gastro-esophageal reflux disease without esophagitis; Z88.0 Allergy status to penicillin; Z88.1 Allergy status to other antibiotic agents; Z88.8 Allergy status to other drugs, medicaments and biological substances; Z88.5 Allergy status to narcotic agent; Z79.899 Other long term (current) drug therapy
CPT/HCPCS: 28725; 81025; 64999; 64445; 73610; C1713; J2250; J0330; J1100; J0690; J2405; J2001; J3010; J2795; J2704